=== PATIENT | female | born 1990 | race Caucasian/White ===

== ENCOUNTER 2020-05-19 15:27 | Outpatient (REF) | payer OTHER, SELFPAY | END 2020-05-19 15:28 | disposition home or self-care (01) | LOC: HO.LAB 15:27 | PROVIDERS: Visit Provider Internal Medicine | DX: Z20.828 Contact with and (suspected) exposure to other viral communicable diseases (principal) | CPT/HCPCS: U0003 ==

== ENCOUNTER 2020-07-03 10:11 | Outpatient (REF) | payer OTHER, SELFPAY ==
[2020-07-03 10:54] LABS: Basophils Percent Auto 0.4 % (0-2); Eosinophils Absolute Auto 0.1 X10*3/uL (0.0-0.4); Eosinophils Percent Auto 0.8 % (0-4); Hematocrit 40.3 % (37-47); Hemoglobin 13.5 g/dl (12.0-16.0); Imm Gran Abs Auto 0.02 X10*3/uL (0.00-0.03); Imm Gran Pct Auto 0.3 % (0.0-0.4); Lymphocytes Absolute Auto 2.6 X10*3/uL (1.2-4.9); Lymphocytes Percent Auto 32.8 % (20-40); MANUAL DIFF FLAG NO; Mean Corpuscular HGB Conc 33.5 g/dl (31.0-35.0); Mean Corpuscular Hemoglobin 29.6 pg (27.0-33.0); Mean Corpuscular Volume 88.4 fL (80-98); Mean Platelet Volume 10.5 fL (9.4-12.3); Monocytes Absolute Auto 0.4 X10*3/uL (0.1-1.2); Monocytes Percent Auto 5.5 % (2-11); Neutrophils Absolute Auto 4.7 X10*3/uL (2.0-8.3); Neutrophils Percent Auto 60.2 % (45-73); Platelet Count 255 X10*3/uL (160-400); Red Blood Count 4.56 X10*6/uL (4.20-5.50); Red Cell Distribution Width 12.4 % (11.0-16.0); White Blood Count 7.8 X10*3/uL (4.8-10.8)
[2020-07-03 11:10] LABS: Estimated Average Glucose 186 mg/dL; Hemoglobin A1c % 8.1 %
[2020-07-03 11:24] LABS: Creatinine Urine 198.71 mg/dL; Microalbum/Creatinine Ratio Ur 18.6 ug/mg cr
[2020-07-03 11:27] LABS: Alanine Aminotransferase 53 U/L (0-31); Albumin Level 4.5 g/dL (3.5-5.0); Alkaline Phosphatase 67 U/L (39-117); Anion Gap 12 (12-20); Aspartate Amino Transferase 24 U/L (5-31); Bilirubin Total 0.3 mg/dL (0.0-1.0); Blood Urea Nitrogen 13 mg/dL (9-16); Calcium 9.2 mg/dL (8.4-10.2); Carbon Dioxide 25 mmol/L (22-29); Chloride 106 mmol/L (96-108); Cholesterol 203 mg/dL; Estimated Glomerular Filt Rate > 60; Glucose Random 146 mg/dL (60-115); HDL Cholesterol 40 mg/dL; LDL Cholesterol Calculated 136 mg/dl; Potassium 4.5 mmol/l (3.3-5.1); Sodium 138 mmol/L (135-145); Total Protein 7.2 g/dL (6.5-8.0); Triglycerides 137 mg/dL
== END 2020-07-03 10:12 | disposition home or self-care (01) ==
LOC: HO.LAB 10:11
PROVIDERS: PCP Physician Assistant; Visit Provider Physician Assistant
DX: E11.9 Type 2 diabetes mellitus without complications (principal); Z79.4 Long term (current) use of insulin
CPT/HCPCS: 36415; 80053; 80061; 82043; 83036; 85025

== ENCOUNTER 2020-07-31 08:08 | Outpatient (REF) | payer OTHER, SELFPAY ==
[2020-07-31 09:05] LABS: Estimated Average Glucose 160 mg/dL; Hemoglobin A1c % 7.2 %
[2020-07-31 09:20] LABS: Creatinine Urine 187.32 mg/dL; Microalbum/Creatinine Ratio Ur 14.9 ug/mg cr
[2020-07-31 09:20] LABS: Alanine Aminotransferase 33 U/L (0-31); Albumin Level 4.7 g/dL (3.5-5.0); Alkaline Phosphatase 74 U/L (39-117); Anion Gap 13 (12-20); Aspartate Amino Transferase 16 U/L (5-31); Bilirubin Total 0.4 mg/dL (0.0-1.0); Blood Urea Nitrogen 12 mg/dL (9-16); Calcium 9.7 mg/dL (8.4-10.2); Carbon Dioxide 27 mmol/L (22-29); Chloride 104 mmol/L (96-108); Cholesterol 205 mg/dL; Estimated Glomerular Filt Rate > 60; Glucose Random 181 mg/dL (60-115); HDL Cholesterol 40 mg/dL; LDL Cholesterol Calculated 130 mg/dl; Potassium 4.9 mmol/l (3.3-5.1); Sodium 139 mmol/L (135-145); Total Protein 7.3 g/dL (6.5-8.0); Triglycerides 179 mg/dL
[2020-07-31 09:37] LABS: ~Hepatitis B Surface Antibody REACTIVE (Nonreactive)
[2020-08-01 06:36] LABS: Varicella IgG Antibody >4000.00 index
== END 2020-07-31 08:09 | disposition home or self-care (01) ==
LOC: HO.LAB 08:08
PROVIDERS: PCP Physician Assistant; Visit Provider Physician Assistant
DX: Z01.84 Encounter for antibody response examination (principal); E11.9 Type 2 diabetes mellitus without complications; Z79.4 Long term (current) use of insulin
CPT/HCPCS: 36415; 80053; 80061; 82043; 83036; 86706; 86787

== ENCOUNTER 2022-04-13 09:12 | Outpatient (REF) | payer OTHER, SELFPAY ==
[2022-04-15 22:41] LABS: HPV mRNA E6/E7 rflx Not Detected (Not Detected)
== END 2022-04-13 09:13 | disposition home or self-care (01) ==
LOC: HO.LNP 09:12
PROVIDERS: Visit Provider Advanced Practice Midwife
DX: Z01.419 Encounter for gynecological examination (general) (routine) without abnormal findings (principal); Z11.51 Encounter for screening for human papillomavirus (HPV)
CPT/HCPCS: 87624; 88142

== ENCOUNTER 2022-08-16 07:58 | Outpatient (REF) | payer OTHER, SELFPAY ==
[2022-08-16 08:50] LABS: Hematocrit 43.2 % (37.0-47.0); Hemoglobin 14.4 g/dl (12.0-16.0); Mean Corpuscular HGB Conc 33.3 g/dl (31.0-35.0); Mean Corpuscular Hemoglobin 29.4 pg (27.0-33.0); Mean Corpuscular Volume 88.2 fL (80.0-98.0); Mean Platelet Volume 10.7 fL (9.4-12.3); Platelet Count 220 X10*3/uL (160-400); Red Cell Distribution Width 12.3 % (11.0-16.0); White Blood Count 9.3 X10*3/uL (4.8-10.8)
[2022-08-16 10:07] LABS: Alanine Aminotransferase 62 U/L (0-31); Albumin Level 4.6 g/dL (3.5-5.0); Alkaline Phosphatase 70 U/L (39-117); Anion Gap 13 (12-20); Aspartate Amino Transferase 30 U/L (5-31); Bilirubin Total 0.5 mg/dL (0.0-1.0); Blood Urea Nitrogen 10 mg/dL (9-16); Calcium 9.9 mg/dL (8.4-10.2); Carbon Dioxide 25 mmol/L (22-29); Chloride 103 mmol/L (96-108); Cholesterol 219 mg/dL; Estimated Glomerular Filt Rate > 60; Glucose Fasting 222 mg/dL (60-99); HDL Cholesterol 36 mg/dL; LDL Cholesterol Calculated 118 mg/dl; Potassium 4.7 mmol/L (3.3-5.1); Sodium 136 mmol/L (135-145); Total Protein 7.3 g/dL (6.5-8.0); Triglycerides 329 mg/dL
[2022-08-16 10:25] LABS: TSH reflex Free T4 2.43 uIU/mL (0.32-4.0)
== END 2022-08-16 07:59 | disposition home or self-care (01) ==
LOC: HO.LAB 07:58
PROVIDERS: Absent Provider Hospitalist; PCP Hospitalist; Visit Provider Hospitalist
DX: Z00.00 Encounter for general adult medical examination without abnormal findings (principal); L20.9 Atopic dermatitis, unspecified; J30.9 Allergic rhinitis, unspecified; L30.9 Dermatitis, unspecified
CPT/HCPCS: 36415; 80053; 80061; 84443; 85027; 86003

== ENCOUNTER 2023-02-18 08:04 | Outpatient (REF) | payer OTHER, SELFPAY | END 2023-02-18 08:05 | disposition home or self-care (01) | LOC: HO.LAB 08:04 | PROVIDERS: PCP Hospitalist; Visit Provider Hospitalist | DX: J30.9 Allergic rhinitis, unspecified (principal); L20.9 Atopic dermatitis, unspecified; L30.9 Dermatitis, unspecified; Z91.09 Other allergy status, other than to drugs and biological substances | CPT/HCPCS: 36415; 86003 ==

== ENCOUNTER 2023-07-22 16:10 | Outpatient (AMB) | payer OTHER, SELFPAY ==
[2023-07-22 16:12] VITALS: BP 108/74; PULSE 101; RESP 13; TEMP 36.6; O2SAT 99; BMI 31.6
--- NOTE | 2023-07-22 16:12 | MHC.PC.OV ---
Vital Signs 07/22/23 16:12 Height 5 ft 1 in Weight 167 lb 4 oz BMI 31.6 BP 108/74 Blood Pressure Location Rt brachial Position Sitting Respiration 13 Pulse 101 H Pulse Source Pulse Oximeter Temp 97.9 F Temp Source Temporal Artery Scan Pulse Oximetry (%) 99 Oxygen Delivery Method Room Air Intake Visit Reasons: THIERNO, BP check, Diabetes management Warranty Clerk Required: No Accompanied by: Self / Same As Patient Allergies lisinopril Adverse Reaction (Severe, Verified 07/22/23 16:17) Cough ARTIFICIAL SWEETENERS Allergy (Intermediate, Uncoded 09/01/22 15:47) HIVES, VOMITING Tobacco use date assessed: 07/22/23 Dental Screening Dental Screen Date: 07/22/23 Did you have a dental visit in the last 12 months?: No Did you have a dental problem in the last 6 months where you did not have access to dental care?: No Was dental information given to patient?: Patient has dentist HPI HPI Comments History of Present Illness Details 32-year-old female presents for transfer of care Her former PCP is VILMA who is no longer with the practice. Her last office visit was in August 2022. Her last blood work was in July 2022 She has history of diabetes and PCOS. She notes that her SBP was elevated once, 140 and was informed by her former PCP she has hypertension. She notes she has been on Spironolactone for hypertension Her last A1c in August 2022 was 7.9% She has been taking Metformin ER 500mg daily and Trulicity 1.5 mg daily She offers no complaints and denies acute symptoms at this time [facility] Medical History Chronic allergic rhinitis Eczema Atopic dermatitis Diabetes Hx of type 2 diabetes mellitus History of PCOS Surgical History Hx of section Hx of tubal ligation Family History Father Myocardial infarction, Onset Age: 45 CVD (cardiovascular disease) Social History Housing: House Alcohol intake: current Alcohol intake frequency: holidays/special occasions only Patient Tobacco Use Status: Never used Tobacco e-Cigarette/Vaping Use: Never Used service: No Current occupational status: employed Current occupation: [employer] Sexual orientation: Straight/Heterosexual Gender identity: Female Cognitive needs: No Hearing needs: No Vision needs: No Questionnaire PHQ-9 Over the last 2 weeks, how often have you been bothered by any of the following problems? 1. Little interest or pleasure in doing things: not at all 2. Feeling down, depressed, or hopeless: not at all 3. Trouble falling or staying asleep, or sleeping too much: not at all 4. Feeling tired or having little energy: not at all 5. Poor appetite or overeating: not at all 6. Feeling bad about yourself - or that you are a failure or have let yourself or your family down: not at all 7. Trouble concentrating on things, such as reading the newspaper or watching television: not at all 8. Moving or speaking so slowly that other people could have noticed. Or the opposite - being so fidgety or restless that you have been moving around a lot more than usual: not at all 9. Thoughts that you would be better off or of hurting yourself in some way: not at all Total score: 0 Depression Screening Interpretation: Negative Depression Screening Done: Yes 87042 - PHQ-9 Billing: Yes Source: Developed by Drs. Brad Dao, Wendy Johnson, Noé Escobar and colleagues, with an educational lefty from [employer]. Thrive Questionnaire Date Thrive assessed: 07/22/23 I am a: Patient What is your living situation today?: I have a steady place to live Within the past 12 months, did the food you bought not last and you didn't have the money to get more?: Never true Within the past 12 months, did you worry whether your food would run out before you got money to buy more?: Never true Do you have trouble paying for medicines?: No Do you have trouble getting transportation to medical appointments?: No Do you have trouble paying your heating and electricity bill?: No Do you have trouble taking care of your child, family member or friend?: No Do you have trouble with day-to-day activities such as bathing, preparing meals, shopping, managing finances, etc.?: No Are you currently unemployed and looking for a job?: No Are you interested in more education?: No Please select the resources that you would like help with: None Currently or been in a relationship where the following occur: no concerns reported AUDIT C Alcohol Use Questionnaire (AUDIT-C) 1. How often do you have a drink containing alcohol?: Monthly or less 2. How many drinks containing alcohol do you have on a typical day when you are drinking?: 3 or 4 3. How often do you have six or more drinks on one occasion?: Never Total Score: 2 BULL-7 AMB Questionnaire BULL-7 Date BULL - 7 assessed: 07/22/23 Feeling nervous, anxious, or on edge: 0 = Not at all Not being able to stop or control worryin = Not at all Worrying too much about different things: 0 = Not at all Trouble relaxin = Not at all Being so restless that it is hard to sit still: 0 = Not at all Becoming easily annoyed or irritable: 0 = Not at all Feeling afraid as if something awful might happen: 0 = Not at all Total BULL-7 score (0-4 normal; 5-9 mild; 10-14 moderate; 15-21 severe): 0 Source: Developed by Drs. Brad Dao, Wendy Johnson, Noé Escobar and colleagues, with an educational lefty from [employer]. BULL-7 Assessment Billing BULL-7 Assessment Tool: BULL-7 Assessment 09815 Review of Systems Const Details: Const Denies chills, Denies fatigue, Denies fever(s), Denies headache(s) and Denies weakness ENT Denies dizziness and Denies headache(s) Card Denies chest pain, Denies lightheadedness, Denies dyspnea and Denies other (Palpitations) Resp Denies cough, Denies dyspnea, Denies wheezing and Denies other ( shortness of breath) GI Denies abdominal pain, Denies melena, Denies hematochezia, Denies change in bowel habits, Denies dyspepsia and Denies nausea Denies hematuria and Denies dysuria Musc Denies abnormal gait, Denies myalgias, Denies arthralgias, Denies numbness and Denies tingling Skin/Breast Denies rash, Denies unusual bruising and Denies wounds Neuro Denies abnormal gait, Denies dizziness, Denies headache(s), Denies memory loss, Denies numbness, Denies Sensory deficit (Neuro), Denies tingling and Denies weakness Psych Denies anxiety, Denies depression, Denies memory loss Endo Denies cold intolerance, Denies fatigue, Denies heat intolerance, Denies polydipsia and Denies polyuria Aller/Immun Denies wheezing Physical exam (Primary Care) Vital Signs: Last Vital Signs Temp 97.9 F 07/22/23 16:12 Pulse 101 H 07/22/23 16:12 Resp 13 07/22/23 16:12 BP 108/74 07/22/23 16:12 Pulse Ox 99 07/22/23 16:12 Oxygen Delivery Method Room Air 07/22/23 16:12 BMI result Body Mass Index 31.6 Tobacco/Smoking Status: Tobacco use Status Tobacco use date assessed 07/22/23 07/22/23 16:21 Patient Tobacco Use Status Never used Tobacco 07/22/23 16:21 e-Cigarette/Vaping Use Never Used 07/22/23 16:21 PHQ-9: PHQ-9 Score PHQ-9: Total score 0 07/22/23 16:32 Depression Screening Interpretation: Negative Thrive Assessment: Date of Thrive Assessment Date Thrive assessed 07/22/23 07/22/23 16:21 Currently or been in a relationship where the following occur: no concerns reported Const Other: General: no acute distress and well developed Nutritional Appearance: well nourished Orientation/consciousness: patient oriented x3 HENMT Head: Yes normocephalic and Yes atraumatic Eyes General: appearance normal, both eyes and all related structures Pupils: Equal, round and reactive pupils present EOM: EOMs intact bilaterally Resp Effort & Inspection: normal respiratory effort Auscultation: clear to auscultation bilaterally Cardio Rate: regular rate Rhythm: regular rhythm Heart sounds: S1 normal heart sound present, S2 normal heart sound present, no gallops, no murmurs and no rubs GI Palpation (GI): No Abdominal aortic bruit present, Soft to palpation, nontender, No hepatosplenomegaly present and No Rebound tenderness present Auscultation: normal bowel sounds General: Yes no CVA tenderness Back/Spine/Pelvis Back: no CVA tenderness Cervical Spine: cervical ROM normal and No Cervical spine tenderness Thoracic/Lumbar Spine: thoraco-lumbar ROM normal, No pain with thoraco-lumbar ROM, No thoracic spinal tenderness and No lumbar spinal tenderness Extrem General: Yes normal to inspection, No edema and No calf tenderness Skin General: warm and dry. Normal skin color. Normal skin turgor Lesions: no lesions Rashes: no rashes Trauma: no lacerations or abrasions Wounds: no wounds Nails: normal Neuro General: patient oriented x3, gait normal and no focal neuro deficit Cranial nerves: Yes Equal, round and reactive pupils present Cognition (Neuro): normal cognition Gait exam (Neuro): Normal gait present Sensory Exam: No Sensory deficit (Neuro) Psych Appearance: grossly normal Affect: normal affect Attitude: cooperative Thought process: Normal thought process present Results AMB Hemoglobin A1c AMB Hemoglobin A1c 9.3 % Last Edit by Melly Dan MA on 07/22/23 16:48 Results Reviewed Results Reviewed: Laboratory Last Values Hgb A1c (Clinic) 9.3 % (4.0-6.0) H 07/22/23 16:47 Assessment and Plan Assessment & Plan (1) Diabetes: Code(s): E11.9 - Type 2 diabetes mellitus without complications Plan: A1c today is 9.3%, above goal of less than 7.0% Will increase metformin and Trulicity. Take as prescribed ADA diet and routine exercise encouraged Point of care testing supplies ordered. Advised to monitor blood glucose 3 times daily, record readings, and bring to next appointment Follow-up in one month for an extended physical exam and labs review or return sooner with symptoms or concerns Verbalized understanding and agreed with treatment plan (2) Laboratory tests ordered as part of a complete physical exam (CPE): Code(s): Z00.00 - Encounter for general adult medical examination without abnormal findings Plan: Fasting labs ordered as part of a complete physical exam. Advised to fast for at least 10 hours before getting labs drawn. May drink water Verbalized understanding and agreed with treatment plan. Orders: Orders AMB Hemoglobin A1c Today E11.9 - Type 2 diabetes mellitus without complications Complete Blood Count Auto Diff Today Z00.00 - Encounter for general adult medical examination without abnormal findings Comprehensive [place]. Panel Fast Today Z00.00 - Encounter for general adult medical examination without abnormal findings TSH reflex Free T4 Today Z00.00 - Encounter for general adult medical examination without abnormal findings Lipid Panel Today Z00.00 - Encounter for general adult medical examination without abnormal findings UA CC w/rflx Micro + Cult Today Z00.00 - Encounter for general adult medical examination without abnormal findings Medications: New lancets (FreeStyle Lancets) POC TID 100 ea 4RF blood-glucose meter (FreeStyle Lite Meter kit) As directed 1 ea 0RF dulaglutide (Trulicity) 3 mg (0.5 mL) subcut QWEEK 2.5 mL 3RF 30 days metformin ER 1,000 mg (2 x 500 mg) PO DAILY 60 tabs 3RF 30 days blood sugar diagnostic (FreeStyle Lite Strips) POC TID 100 ea 4RF Discontinued dulaglutide (Trulicity) Discontinued Reason: Doctor's Order 1.5 mg (0.5 mL) subcut QWEEK 6.5 mL 0RF 3 months E11.9 - Type 2 diabetes mellitus without complications Coding Level of Care Code Est Pt Level 4 (28511) Diagnoses Diabetes E11.9 Laboratory tests ordered as part of a complete physical exam (CPE) Z00.00 Additional Codes BULL-7 Assessment Billing - BULL-7 Assessment Tool: BULL-7 Assessment 71002 ([id number])
== END 2023-07-22 16:50 | disposition home or self-care (01) ==
PROVIDERS: PCP Hospitalist; Visit Provider Nurse Practitioner Family
DX: E11.9 Type 2 diabetes mellitus without complications (principal); Z00.00 Encounter for general adult medical examination without abnormal findings
CPT/HCPCS: 83036; 99214

== ENCOUNTER 2023-09-04 18:39 | Emergency (ER) | payer OTHER, SELFPAY ==
[2023-09-04 19:06] VITALS: BP 147/78; PULSE 105; RESP 14; TEMP 37.3; O2SAT 97; BMI 30.6
--- NOTE | 2023-09-04 19:11 | ECG_ITS ---
Test Reason : TACHYCARDIA Blood Pressure : / mmHG Vent. Rate : 099 BPM Atrial Rate : 099 BPM P-R Int : 140 ms QRS Dur : 070 ms QT Int : 352 ms P-R-T Axes : 025 017 014 degrees QTc Int : 451 ms Normal sinus rhythm Normal ECG When compared with ECG of 06-JUN-2009 23:17, ST now depressed in Inferior leads T wave amplitude has decreased in Anterior leads Referred By: Generic ED Physician Electronically Signed By:YAJAIRA IRAHETA MD
[2023-09-04 19:37] LABS: Basophils Percent Auto 0.4 % (0-2); Eosinophils Absolute Auto 0.1 X10*3/uL (0.0-0.4); Eosinophils Percent Auto 0.9 % (0-4); Hematocrit 38.4 % (37.0-47.0); Hemoglobin 13.2 g/dl (12.0-16.0); Imm Gran Abs Auto 0.03 X10*3/uL (0.00-0.03); Imm Gran Pct Auto 0.4 % (0.0-0.4); Lymphocytes Absolute Auto 2.8 X10*3/uL (1.2-4.9); Lymphocytes Percent Auto 32.7 % (20-40); MANUAL DIFF FLAG NO; Mean Corpuscular HGB Conc 34.4 g/dl (31.0-35.0); Mean Corpuscular Hemoglobin 29.8 pg (27.0-33.0); Mean Corpuscular Volume 86.7 fL (80.0-98.0); Mean Platelet Volume 10.2 fL (9.4-12.3); Monocytes Absolute Auto 0.5 X10*3/uL (0.1-1.2); Monocytes Percent Auto 5.3 % (2-11); Neutrophils Absolute Auto 5.1 x10*3/uL (2.0-8.3); Neutrophils Percent Auto 60.3 % (45-73); Platelet Count 237 X10*3/uL (160-400); Red Blood Count 4.43 X10*6/uL (4.20-5.50); White Blood Count 8.5 X10*3/uL (4.8-10.8)
[2023-09-04 19:45] LABS: D Dimer High Sensitivity < 150 NG/ML
[2023-09-04 20:05] LABS: Alanine Aminotransferase 29 U/L (0-31); Albumin Level 4.2 g/dL (3.5-5.0); Alkaline Phosphatase 73 U/L (39-117); Anion Gap 13 (12-20); Aspartate Amino Transferase 14 U/L (5-31); Bilirubin Total 0.2 mg/dL (0.0-1.0); Blood Urea Nitrogen 12 mg/dL (9-16); Calcium 9.3 mg/dL (8.4-10.2); Carbon Dioxide 25 mmol/L (22-29); Chloride 105 mmol/L (96-108); Creatinine Clr Calc Pharmacy 100.9; Estimated Glomerular Filt Rate > 60; Glucose Random 234 mg/dL (60-115); Potassium 3.8 mmol/L (3.3-5.1); Sodium 139 mmol/L (135-145); Total Protein 6.9 g/dL (6.5-8.0)
[2023-09-04 20:15] VITALS: BP 127/78; PULSE 80; RESP 18; O2SAT 97
[2023-09-04 20:16] LABS: Troponin-I High Sensitivity < 2.7 ng/L (<3.5-17.0)
--- NOTE | 2023-09-04 20:24 | PC.NURSE ---
Assumed care of pt. PT alert and oriented in no acute distress. PT Reports left calf pain. Calf is pink warm and dry, no redness or pain upon palpation. VSS. Med list completed. Plan of care ongoing
--- NOTE | 2023-09-04 21:26 | ED.GENADULT ---
HPI - General Adult General Chief complaint: General Medical Stated complaint: blood clot? Left calf pain/ L rib pain Time Seen by Provider: 09/04/23 20:43 Source: patient Mode of arrival: ambulatory History of Present Illness HPI narrative: 32-year-old female with history of diabetes and states that for the past week she has had bilateral lower extremity discomfort without associated fever, chills, traumatic injury, but states that she noticed it was worse on the left calf than on the right, denies any recent travel, is a current smoker and then states that she has had additional symptoms that she describes as chest heaviness and chest wall discomfort as well as palpitations. She denies shortness of breath. Related Data Home Medications Medication Instructions Recorded Confirmed metformin 500 mg tablet,extended 500 mg PO DAILY 07/22/23 release 24 hr Baby Aspirin 81 mg DAILY 09/04/23 09/04/23 Previous Rx's Medication Instructions Recorded blood pressure monitor #1 ea 05/26/22 spironolactone 25 mg tablet 25 mg PO DAILY 3 months #90 tabs 02/17/23 blood sugar diagnostic (FreeStyle #100 ea 07/22/23 Lite Strips) blood-glucose meter (FreeStyle #1 ea 07/22/23 Lite Meter kit) dulaglutide 3 mg/0.5 mL 3 mg (0.5 mL) subcut QWEEK 30 days 07/22/23 subcutaneous pen injector #2.5 mL (Trulicity) lancets 28 gauge (FreeStyle #100 ea 07/22/23 Lancets) metformin 500 mg tablet,extended 1,000 mg (2 x 500 mg) PO DAILY 30 07/22/23 release 24 hr days #60 tabs flash glucose scanning reader #1 ea 08/02/23 (FreeStyle Radames 2 [place]) flash glucose sensor (FreeStyle #2 ea 08/31/23 Radames 2 Sensor kit) Allergies Allergy/AdvReac Type Severity Reaction Status Date / Time lisinopril AdvReac Severe Cough Verified 09/04/23 19:06 ARTIFICIAL SWEETENERS Allergy Intermediate HIVES, Uncoded 09/04/23 19:06 VOMITING Review of Systems Review of Systems: Pertinent positives and negatives as stated in HPI REPLACED BY [facility] Past Medical History Source: nursing notes reviewed Medical History Chronic allergic rhinitis Eczema Atopic dermatitis Diabetes Hx of type 2 diabetes mellitus History of PCOS Surgical History Hx of section Hx of tubal ligation Family History Family History Father Myocardial infarction, Onset Age: 45 CVD (cardiovascular disease) Social History Social History Housing: House Alcohol intake: current Alcohol intake frequency: holidays/special occasions only Patient Tobacco Use Status: Never used Tobacco Smoked in Last 30 Days: Yes e-Cigarette/Vaping Use: Never Used Use of substances other than those prescribed or required for medical reasons: No Advance Directives: No Advance Directives Information Provided: No Patient : No service: No Current occupational status: employed 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 GENERAL: Well developed, well nourished, in no acute distress. HEAD: Normocephalic/atraumatic EYES: PERRLA, EOMI EARS: Ext canals without abnormality, TMs non-bulging and non-erythematous NOSE: Nares patent bilateral OROPHARYNX: no oral lesions noted, posterior pharynx clear and non-erythematous without noted tonsillar enlargement/erythema/exudates NECK: Supple, no adenopathy LUNGS: Normal breath sounds. No adventitious sounds or accessory muscle use. SpO2<97> CARDIOVASCULAR: Regular rate and rhythm without noted murmurs, no JVD or lower extremity edema. ABDOMEN: Soft, non-tender, non-distended with bowel sounds. MUSCULOSKELETAL: No tenderness, deformities, or effusions noted on gross inspection. EXTREMITIES: No cyanosis, clubbing or edema. BILATERAL LOWER EXTREMITIES: There is no obvious deformity common no erythema/induration, no varicosities, no palpable cords and lower extremities appear to be symmetrical SKIN: Inspection of the skin reveals no rashes NEUROLOGIC: Alert and oriented x 4. Strength and sensation to light touch were grossly intact x 4. Medical Decision Making Medical Decision Making [facility] Narrative: 32-year-old female with history and clinical presentation, DDX: Viral illness, thrombophlebitis, musculoskeletal, possible DVT/PE though felt to be less likely. I reviewed all investigations and hematologic indices are grossly within normal limits without derangements. D-dimer is undetectable and chemistry indices do not demonstrate an DAVID or electrolyte derangements, there is a mild hyperglycemia without clinical or historical evidence to suggest DKA or HHS. Liver enzymes are within normal limits and high sensitivity troponin is undetectable. Review of EKG without significant findings. My interpretation is that patient may have developing viral infection, she is not hypoxic nor is she tachypneic. All results and findings discussed with her at bedside and she is otherwise discharged home in stable condition. Differential Diagnosis Differential Diagnoses: The differential diagnosis associated with the presentation includes Please see the discussion above Admission/Observation Consideration of admission/observation: Escalation of care including admission/observation considered Please see the discussion above Lab Data [facility] Lab Attestation statement: I reviewed the patient's lab results. Please see the discussion above 09/04/23 19:32 09/04/23 19:32 Labs: Lab Results 09/04/23 Range/Units 19:32 WBC 8.5 (4.8-10.8) X10*3/uL RBC 4.43 (4.20-5.50) X10*6/uL Hgb 13.2 (12.0-16.0) g/dl Hct 38.4 (37.0-47.0) % MCV 86.7 (80.0-98.0) fL MCH 29.8 (27.0-33.0) pg MCHC 34.4 (31.0-35.0) g/dl RDW 12.0 (11.0-16.0) % Plt Count 237 (160-400) X10*3/uL MPV 10.2 (9.4-12.3) fL Immature Gran % (Auto) 0.4 (0.0-0.4) % Neut % (Auto) 60.3 (45-73) % Lymph % (Auto) 32.7 (20-40) % [place] % (Auto) 5.3 (2-11) % Eos % (Auto) 0.9 (0-4) % Baso % (Auto) 0.4 (0-2) % Lymph # (Auto) 2.8 (1.2-4.9) X10*3/uL [place] # (Auto) 0.5 (0.1-1.2) X10*3/uL Eos # (Auto) 0.1 (0.0-0.4) X10*3/uL Baso # (Auto) 0.0 (0.0-0.2) X10*3/uL Abs Immat Gran (auto) 0.03 (0.00-0.03) X10*3/uL Absolute Neuts (auto) 5.1 (2.0-8.3) x10*3/uL Absolute Nucleated RBC 0.000 (0.0-0.012) X10*3/uL Nucleated RBC % (auto) 0.0 (0.0-0.2) /100WBC D-Dimer High Sensitivty < 150 NG/ML Sodium 139 (135-145) mmol/L Potassium 3.8 (3.3-5.1) mmol/L Chloride 105 (96-108) mmol/L Carbon Dioxide 25 (22-29) mmol/L Anion Gap 13 (12-20) BUN 12 (9-16) mg/dL Creatinine 0.74 (0.5-1.4) mg/dL Estim Creat Clear Calc 100.9 Estimated GFR > 60 Random Glucose 234 H (60-115) mg/dL Calcium 9.3 D (8.4-10.2) mg/dL Total Bilirubin 0.2 (0.0-1.0) mg/dL AST 14 (5-31) U/L ALT 29 (0-31) U/L Alkaline Phosphatase 73 (39-117) U/L Troponin I High Sens < 2.7 (<3.5-17.0) ng/L Total Protein 6.9 (6.5-8.0) g/dL Albumin 4.2 (3.5-5.0) g/dL Independent Interpretation I performed an independent interpretation of an: EKG Interpretation: Normal sinus rhythm, HR-99, no STEMI, CO/QRS/QTC is within normal limits. ST depression described it in inferior leads is inaccurate due to noted artifact. External Record Review External record reviewed: Outpatient record, Prior outpatient labs and Prior outpatient radiology Chronic Conditions Patient?s care impacted by: Diabetes Critical Care Time Critical Care Time Critical Care Time: Yes Total Critical Care Time: 30 Attestation: I personally attest to this time spent taking care of the patient. Discharge Plan Discharge Clinical Impression: Musculoskeletal pain Patient Disposition: Home, Self-Care Instructions: Musculoskeletal Pain (ED) Additional Instructions: 1. Resume all home medications as prescribed. 2. Please follow-up with your primary care doctor in the next 1-2 days. Do not hesitate to return to the emergency room should you experience any worsening of symptoms or new concerns. Prescriptions: No Action spironolactone 25 mg tablet 25 mg PO DAILY 90 Days Qty: 90 2RF (DME) FreeStyle Radames 2 [place] Misc See Rx Instructions .Route Qty: 1 0RF Rx Instructions: As directed (DME) FreeStyle Radames 2 Sensor Kit See Rx Instructions .Route Qty: 2 1RF Rx Instructions: As directed Baby Aspirin 81 mg DAILY Trulicity 3 mg/0.5 mL pen injector 3 mg subcut QWEEK 30 Days Qty: 2.5 3RF metformin 500 mg tablet extended release 24 hr 1,000 mg PO DAILY 30 Days Qty: 60 3RF (DME) lancets [FreeStyle Lancets] 28 gauge misc See Rx Instructions .MEDSUPPLY Qty: 100 4RF Rx Instructions: POC TID (DME) blood-glucose meter [FreeStyle Lite Meter] Kit See Rx Instructions .MEDSUPPLY Qty: 1 0RF Rx Instructions: As directed (DME) FreeStyle Lite Strips Strip See Rx Instructions .MEDSUPPLY Qty: 100 4RF Rx Instructions: POC TID metformin 500 mg tablet extended release 24 hr 500 mg PO DAILY (DME) blood pressure monitor Kit See Rx Instructions .Route Qty: 1 0RF Rx Instructions: As directed Referrals: Denisse Berman CNP [Primary Care Provider] -
== END 2023-09-04 21:47 | disposition home or self-care (01) ==
PROVIDERS: Emergency Provider Student in an Organized Health Care Education/Training Program; PCP Nurse Practitioner Family
DX: R60.0 Localized edema (principal); M79.605 Pain in left leg; M79.604 Pain in right leg; R00.0 Tachycardia, unspecified; M79.10 Myalgia, unspecified site; Z79.899 Other long term (current) drug therapy
CPT/HCPCS: 36415; 80053; 84484; 85025; 85379; 93005; 99283; 99284

== ENCOUNTER → 2023-09-04 19:11 | Outpatient (BNV) | payer OTHER, SELFPAY | PROVIDERS: Emergency Provider Student in an Organized Health Care Education/Training Program; PCP Nurse Practitioner Family; Visit Provider Internal Medicine Cardiovascular Disease | DX: R00.0 Tachycardia, unspecified (principal) | CPT/HCPCS: 93010 ==

== ENCOUNTER 2023-09-08 07:55 | Outpatient (REF) | payer OTHER, SELFPAY ==
--- NOTE | ~2023-09-08 | XR_ITS ---
EXAMINATION: XR CHEST 2 VIEWS CLINICAL INFORMATION: Acute dyspnea. COMPARISON: None. TECHNIQUE: Frontal and lateral views of the chest were obtained. FINDINGS: The heart, great vessels, pulmonary vasculature and mediastinum are normal. The lungs show no focal infiltrate, effusion or pneumothorax. There is no acute osseous abnormality. XR/XR chest 2V IMPRESSION: No active cardiopulmonary disease.
[2023-09-08 08:09] LABS: MANUAL DIFF FLAG NO
[2023-09-08 08:21] LABS: Basophils Percent Auto 0.4 % (0-2); Eosinophils Absolute Auto 0.1 X10*3/uL (0.0-0.4); Eosinophils Percent Auto 1.2 % (0-4); Hematocrit 40.1 % (37.0-47.0); Hemoglobin 13.7 g/dl (12.0-16.0); Imm Gran Abs Auto 0.04 X10*3/uL (0.00-0.03); Imm Gran Pct Auto 0.5 % (0.0-0.4); Lymphocytes Absolute Auto 2.5 X10*3/uL (1.2-4.9); Lymphocytes Percent Auto 29.7 % (20-40); Mean Corpuscular HGB Conc 34.2 g/dl (31.0-35.0); Mean Corpuscular Hemoglobin 29.8 pg (27.0-33.0); Mean Corpuscular Volume 87.2 fL (80.0-98.0); Mean Platelet Volume 10.1 fL (9.4-12.3); Monocytes Absolute Auto 0.5 X10*3/uL (0.1-1.2); Neutrophils Absolute Auto 5.2 x10*3/uL (2.0-8.3); Neutrophils Percent Auto 62.2 % (45-73); Platelet Count 211 X10*3/uL (160-400); Red Cell Distribution Width 11.9 % (11.0-16.0); White Blood Count 8.3 X10*3/uL (4.8-10.8)
[2023-09-08 08:56] LABS: Alanine Aminotransferase 29 U/L (0-31); Albumin Level 4.3 g/dL (3.5-5.0); Alkaline Phosphatase 66 U/L (39-117); Anion Gap 12 (12-20); Aspartate Amino Transferase 17 U/L (5-31); Bilirubin Total 0.3 mg/dL (0.0-1.0); Blood Urea Nitrogen 8 mg/dL (9-16); Calcium 9.1 mg/dL (8.4-10.2); Carbon Dioxide 25 mmol/L (22-29); Chloride 104 mmol/L (96-108); Cholesterol 203 mg/dL (<200); Estimated Glomerular Filt Rate > 60; Glucose Fasting 198 mg/dL (60-99); HDL Cholesterol 39 mg/dL (>40); LDL Cholesterol Calculated 123 mg/dL (<100); Potassium 4.1 mmol/L (3.3-5.1); Sodium 137 mmol/L (135-145); Triglycerides 208 mg/dL (<150)
[2023-09-08 09:04] LABS: Appearance Urine Clear; Color Urine Yellow; Glucose Urine UA 250 mg/dL (Negative); Leukocyte Esterase Urine Negative (Negative); Nitrite Urine Negative (Negative); PH 7.5 (5.0-9.0); Specific Gravity - Urine 1.015 (1.005-1.025); Urine Blood Negative (Negative); Urine Ketones Trace mg/dL (Negative); Urine Protein Negative (Neg-Trace)
[2023-09-08 09:14] LABS: TSH reflex Free T4 1.83 uIU/mL (0.32-4.0)
== END 2023-09-08 07:56 | disposition home or self-care (01) ==
LOC: HO.LAB 07:55
PROVIDERS: PCP Nurse Practitioner Family; Visit Provider Nurse Practitioner Family
DX: Z00.00 Encounter for general adult medical examination without abnormal findings (principal); E11.9 Type 2 diabetes mellitus without complications; R06.00 Dyspnea, unspecified
CPT/HCPCS: 36415; 71046; 80053; 80061; 81003; 84443; 85025

== ENCOUNTER → 2023-09-09 08:47 | Outpatient (REF) | payer OTHER, SELFPAY ==
--- NOTE | 2023-09-09 08:51 | CA_ITS ---
Transthoracic Echocardiogram Patient (Last, First, Middle): Katherine Merlos, Gender: Female Date of : 1990 Age: 32 Procedure Date: 09/09/2023 Procedure Type: Transthoracic Echocardiogram Location: OP Height: 154.94 cm Weight: 72.58 kg BSA: 1.72 m2 Heart Rate: 98 bpm BP: 108 / 80 mmHg Joist Setter: SB Referring MD: Levi Shaw MD Roving Weight Gauger: Julian King MD Symptoms: R06.00 - Dyspnea, unspecified Study Quality: Adequate ECG Rhythm: Sinus Conclusions: - Essentially normal study Findings Left Ventricle Normal left ventricular size, thickness, and systolic function. The visually estimated ejection fraction is between 60-65%. Spectral Doppler is indicative of a normal filling pattern. Peak GLS is -19.2%, within normal limits. Right Ventricle Normal right ventricular cavity size and systolic function. Atria Both atria are normal in size. There is no evidence of interatrial shunt. Aortic Valve Normal aortic valve structure and function. There is no aortic valve stenosis. There is no aortic valve regurgitation. Mitral Valve Normal mitral valve structure and function. There is trace mitral valve regurgitation. There is no mitral valve stenosis. Pulmonic Valve The pulmonic valve is likely normal. Tricuspid Valve Normal tricuspid valve structure. There is trace tricuspid valve regurgitation. The right ventricular systolic pressure is normal. The right ventricular systolic pressure is 26 mmHg. Normal right atrial pressure. There is no evidence of pulmonary hypertension. Great Vessels All visible segments of the aorta are normal in size. The pulmonary artery was not well visualized. Venous The inferior vena cava is normal in size and collapses greater than 50% with inspiration. Pericardium/Pleural There is no evidence of pericardial effusion. Prior Study Comparison No prior study available for comparison. Measurements 2D Linear Measurements IVSd: 0.94 0.6-0.9/0.6-1.0 cm LVIDd: 4.08 3.9-5.3/4.2-5.9 cm LVIDd Index: 2.37 2.4-3.2/2.2-3.1 cm/m2 LVIDs: 2.85 2.0-3.6 cm LVPWd: 0.61 0.7-1.1 cm LA Diam: 4.10 2.7-3.8/3.0-4.0 cm LAIDs Index: 2.38 1.5-2.3 cm/m2 LV Mass: 115.25 67-162/88-224 g LV Mass Index: 67.01 43-95/49-115 g/m2 LVOT Diam: 2.00 3.0+(-)1.3 cm 2D Systolic Function EF 4C: 57.30 >55% EF 2C: 64.70 >55% EF BiP: 60.80 >55% Mitral Valve MV Pk E: 0.85 MV PK A: 0.65 MV Decel Time: 175.00 E/A: 1.30 E'Lateral: 12.50 E'Medial: 8.16 E/E' Med: 10.40 E/E' Lat: 6.80 PHT: 51.00 MVA PHT: 4.31 Decel [place]: 4.84 Aortic Valve AoV Pk Oumar: 1.51 AoV Pk Grad: 9.00 JOSS: 2.68 LVOT LVOT Pk Oumar: 1.29 LVOT Mn Oumar: 0.94 LVOT VTI: 0.25 LVOT Pk Grad: 7.00 LVOT Mn Grad: 4.00 LVOT Diam: 2.00 LVOT Area: 3.14 Diastolic Function MV Pk E: 0.85 MV Pk A: 0.65 E/A: 1.30 E'Medial: 8.16 E/E' Med: 10.40 E' Laterial: 12.50 E/E' Lat: 6.80 Right Ventricle TAPSE (mm): 24.80 TVS' Oumar: 13.40 Tricuspid Valve TR Pk Oumar: 2.38 TR Pk Grad: 23.00 RA Press: 3.00 RVSP: 26.00 Great Vessels Aorta Sinus of Valsalva: 2.70 2.0-3.5 cm Ao Asc: 2.80 2.1-3.4 cm Pulmonary Veins Pulm Vein S/D 1.40 Pulmonary Valve PV Pk Oumar: 1.02 Peak PV Grad: 4.00 Updated in Other Vendor System with Status of Final Julian King MD electronically signed on 09/10/2023 11:14:19 AM with status of Final
== END ==
LOC: HO.CARD 08:47
PROVIDERS: PCP Nurse Practitioner Family; Visit Provider Internal Medicine Pulmonary Disease
DX: R06.00 Dyspnea, unspecified (principal)
CPT/HCPCS: 93306; 93356

== ENCOUNTER → 2023-09-09 08:51 | Outpatient (BNV) | payer OTHER, SELFPAY | PROVIDERS: PCP Nurse Practitioner Family; Visit Provider Internal Medicine Cardiovascular Disease | DX: R06.02 Shortness of breath (principal) | CPT/HCPCS: 93306 ==

== ENCOUNTER 2023-09-09 16:32 | Outpatient (AMB) | payer OTHER, SELFPAY ==
[2023-09-09 16:35] VITALS: BP 110/70; PULSE 99; RESP 13; TEMP 36.4; O2SAT 99; BMI 31.1
--- NOTE | 2023-09-09 16:35 | A.OFFPC_ITS ---
Vital Signs 09/09/23 16:35 Height 5 ft 1 in Weight 164 lb 8 oz BMI 31.1 BP 110/70 Blood Pressure Location Rt brachial Position Sitting Respiration 13 Pulse 99 Pulse Source Pulse Oximeter Temp 97.6 F Temp Source Temporal Artery Scan Pulse Oximetry (%) 99 Oxygen Delivery Method Room Air Intake Visit Reasons: 1 mos CPE, labs review Playground Equipment Erector Required: No Accompanied by: Self / Same As Patient Allergies lisinopril Adverse Reaction (Severe, Verified 09/09/23 17:16) Cough ARTIFICIAL SWEETENERS Allergy (Intermediate, Uncoded 09/09/23 17:16) HIVES, VOMITING Medication List - Last Reconciled 09/09/23 by Denisse Berman CNP [Baby Aspirin 81 mg DAILY] blood pressure monitor As directed blood sugar diagnostic (FreeStyle Lite Strips) POC TID blood-glucose meter (FreeStyle Lite Meter kit) As directed dulaglutide (Trulicity) 3 mg (0.5 mL) subcut QWEEK 30 days flash glucose scanning reader (FreeStyle Radames 2 Vanduser) As directed flash glucose sensor (FreeStyle Radames 2 Sensor kit) As directed lancets (FreeStyle Lancets) POC TID metformin ER 1,000 mg (2 x 500 mg) PO DAILY 30 days spironolactone 25 mg PO DAILY 3 months Tobacco use date assessed: 07/22/23 Dental Screening Dental Screen Date: 09/09/23 Did you have a dental visit in the last 12 months?: No Did you have a dental problem in the last 6 months where you did not have access to dental care?: No Was dental information given to patient?: Patient has dentist HPI HPI Comments History of Present Illness Details 32 y/o female presents for a CPE and lab s review She admits to taking her medications as prescribed without adverse reactions She admits to healthy lifestyle including diet. She has not been exercising in the past 2 weeks She reports SOB with mild exertion for the past week and half. She reports persistent bilat calf pain which started before the SOB. She was recently evaluated at [facility] and had negative work-up cardiac and PE work-up. She notes had a negative COVID test. She is following up with Dr. Shaw who ordered an echo She brought a blood glucose log within the past 2 wks; her FBG average over 200 and RBG average around 150 Last pap smear test was in 2020: normal. She has a pap smear test schedule in March, Last retinal exam was over a year ago: normal. She has an eye exam scheduled in October [address] Huang She states that she is up-to-date on the flu vaccine She notes that she is sexually active, in a monogamous relationship, and has no concerns for STD Nonsmoker, drinks alcohol occasionally, no recreational drug use PFSH Medical History Chronic allergic rhinitis Eczema Atopic dermatitis Diabetes Hx of type 2 diabetes mellitus History of PCOS Surgical History Hx of section Hx of tubal ligation Family History (Updated 09/09/23 @ 16:44 by Melly Dan MA) Father Myocardial infarction, Onset Age: 45 CVD (cardiovascular disease) Social History Housing: House Alcohol intake: current Alcohol intake frequency: holidays/special occasions only Patient Tobacco Use Status: Former Tobacco user e-Cigarette/Vaping Use: Never Used service: No Current occupational status: employed 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 1. Little interest or pleasure in doing things: not at all 2. Feeling down, depressed, or hopeless: not at all 3. Trouble falling or staying asleep, or sleeping too much: not at all 4. Feeling tired or having little energy: not at all 5. Poor appetite or overeating: not at all 6. Feeling bad about yourself - or that you are a failure or have let yourself or your family down: not at all 7. Trouble concentrating on things, such as reading the newspaper or watching television: not at all 8. Moving or speaking so slowly that other people could have noticed. Or the opposite - being so fidgety or restless that you have been moving around a lot more than usual: not at all 9. Thoughts that you would be better off or of hurting yourself in some way: not at all Total score: 0 Depression Screening Interpretation: Negative Depression Screening Done: Yes Source: Developed by Drs. Brad Dao, Noé Lazo and colleagues, with an educational lefty from [employer]. Thrive Questionnaire Date Thrive assessed: 07/22/23 AUDIT C Alcohol Use Questionnaire (AUDIT-C) 1. How often do you have a drink containing alcohol?: Monthly or less 2. How many drinks containing alcohol do you have on a typical day when you are drinking?: 3 or 4 3. How often do you have six or more drinks on one occasion?: Never Total Score: 2 BULL-7 AMB Questionnaire BULL-7 Date BULL - 7 assessed: 09/09/23 Feeling nervous, anxious, or on edge: 0 = Not at all Not being able to stop or control worryin = Not at all Worrying too much about different things: 0 = Not at all Trouble relaxin = Not at all Being so restless that it is hard to sit still: 0 = Not at all Becoming easily annoyed or irritable: 0 = Not at all Feeling afraid as if something awful might happen: 0 = Not at all Total BULL-7 score (0-4 normal; 5-9 mild; 10-14 moderate; 15-21 severe): 0 Source: Developed by Drs. Brad Dao, Noé Lazo and colleagues, with an educational lefty from [employer]. BULL-7 Assessment Billing BULL-7 Assessment Tool: BULL-7 Assessment [id number] Review of Systems Const Details: Denies chills, Denies fatigue, Denies fever(s), Denies headache(s) and Denies weakness HEENT Denies change in vision, Denies dizziness, Denies headache(s), Denies hearing loss, Denies nasal congestion, Denies sinus pain, Denies sinus pressure and Denies sore throat Card Denies chest pain, Denies lightheadedness, Denies dyspnea and Denies other (palpitations) Resp Denies cough, Denies dyspnea and Denies wheezing GI Denies abdominal pain, Denies melena, Denies hematochezia, Denies change in bowel habits, Denies dyspepsia and Denies nausea Denies hematuria and Denies dysuria Musc Denies abnormal gait, Denies myalgias, Denies arthralgias, Denies numbness and Denies tingling Skin/Breast Denies rash, Denies unusual bruising and Denies wounds Neuro Denies abnormal gait, Denies dizziness, Denies headache(s), Denies memory loss, Denies numbness, Denies Sensory deficit (Neuro), Denies tingling and Denies weakness Psych Denies anxiety, Denies depression and Denies memory loss Endo Denies cold intolerance, Denies fatigue, Denies heat intolerance, Denies polydipsia and Denies polyuria Jonh/Lymph Denies easy bleeding and Denies easy bruising Aller/Immun Denies wheezing Physical exam (Primary Care) Vital Signs: Last Vital Signs Temp 97.6 F 09/09/23 16:35 Pulse 99 09/09/23 16:35 Resp 13 09/09/23 16:35 BP 110/70 09/09/23 16:35 Pulse Ox 99 09/09/23 16:35 Oxygen Delivery Method Room Air 09/09/23 16:35 BMI result Body Mass Index 31.1 Tobacco/Smoking Status: Tobacco use Status Tobacco use date assessed 07/22/23 09/09/23 16:48 Patient Tobacco Use Status Former Tobacco user 09/09/23 16:48 e-Cigarette/Vaping Use Never Used 09/09/23 16:48 PHQ-9: PHQ-9 Score PHQ-9: Total score 0 09/09/23 16:48 Depression Screening Interpretation: Negative Thrive Assessment: Date of Thrive Assessment Date Thrive assessed 07/22/23 09/09/23 16:48 Const Other: General: no acute distress, well developed, alert and awake Nutritional Appearance: well nourished Orientation/consciousness: patient oriented x3 HENMT Head: Yes normocephalic and Yes atraumatic Ears: hearing grossly normal bilaterally and TM's normal bilaterally General nose exam: Normal external nose present and Normal nares present Mouth: Normal oral and palatal mucosa present and moist mucous membranes Teeth and gingiva: dentition normal Throat: Yes oropharynx normal Eyes Pupils: Equal, round and reactive pupils present and Pupil accommodation reflex normal EOM: EOMs intact bilaterally Neck Neck: Yes normal visual inspection, Yes no lymphadenopathy and Yes trachea midline Thyroid: Thyroid normal Carotids: no bruits Lymphatic: no lymphadenopathy noted Chest Chest palpation & inspection: normal inspection of the chest Resp Effort & Inspection: normal respiratory effort Auscultation: clear to auscultation bilaterally Cardio Rate: regular rate Rhythm: regular rhythm Heart sounds: S1 normal heart sound present, S2 normal heart sound present, no gallops, no murmurs and no rubs Bruits: no abdominal aortic bruits and no carotid bruits GI Palpation (GI): No Abdominal aortic bruit present, Soft to palpation, nontender, No hepatosplenomegaly present and No Rebound tenderness present Auscultation: normal bowel sounds General: Yes no CVA tenderness Back/Spine/Pelvis Back: no CVA tenderness Cervical Spine: cervical ROM normal and No Cervical spine tenderness Thoracic/Lumbar Spine: thoraco-lumbar ROM normal, No pain with thoraco-lumbar ROM, No thoracic spinal tenderness and No lumbar spinal tenderness Skin General: warm and dry. Normal skin color. Normal skin turgor Lesions: no lesions Rashes: no rashes Trauma: no lacerations or abrasions Wounds: no wounds Nails: normal Neuro General: patient oriented x3, gait normal and CN's II-XI intact bilaterally Cranial nerves: Yes Equal, round and reactive pupils present Cognition (Neuro): normal cognition Gait exam (Neuro): Normal gait present Motor exam (neuro): 5/5 motor strength present throughout Sensory Exam: No Sensory deficit (Neuro) Deep tendon reflexes (DTR's): Right patellar reflex intensity grade: 2+ and Left patellar reflex intensity grade: 2+ Extrem General: Yes normal to inspection, No edema and No calf tenderness Psych Appearance: grossly normal Affect: normal affect Attitude: cooperative Thought process: Normal thought process present Assessment and Plan Assessment & Plan (1) Normal physical exam: Code(s): Z00.00 - Encounter for general adult medical examination without abnormal findings Plan: No significant physical restrictions or limitations noted Continue current treatment regimen Healthy diet and routine exercise encouraged Follow-up in 6 weeks for hyperlipidemia Return sooner with symptoms or concerns Verbalized understanding and agreed with treatment plan (2) Hyperlipidemia: Code(s): E78.5 - Hyperlipidemia, unspecified Plan: Recent lab results reviewed with the patient Unremarkable findings except for elevated triglyceride, total cholesterol, and LDL levels, 208, and 123 respectively, HDL is slightly low, 39. LDL goal is less than 70 Atorvastatin 10 mg every night ordered. Take as prescribed Advised to limit foods high in saturated fat and avoid foods high trans fat Routine exercise encouraged Will recheck lipid panel. Advised to fast for 10-12 hours, may drink water only, and get blood work done before her next visit Follow-up in 6 weeks Verbalized understanding and agreed with treatment plan (3) Bilateral calf pain: Code(s): M79.661 - Pain in right lower leg; M79.662 - Pain in left lower leg Plan: Reports shortness of breath with mild exertion and bilateral calf pain for the past week and half Recent cardiac and pulmonary workup were negative at [facility] Likely viral illness Adequate hydration encouraged May take Tylenol ibuprofen for pain or discomfort Follow-up with worsening or new symptoms Verbalized understanding and agreed with treatment plan (4) Shortness of breath on exertion: Code(s): R06.02 - Shortness of breath Plan: As above Orders: Orders Microalbumin, Random (w Creat) Today E11.9 - Type 2 diabetes mellitus without complications Lipid Panel 6 Weeks E78.5 - Hyperlipidemia, unspecified Medications: New atorvastatin 10 mg PO BEDTIME 30 tabs 3RF 30 days Coding Level of Care Code Est Pt Prev Care 18-39y(77397) Diagnoses Normal physical exam Z00.00 Hyperlipidemia E78.5 Bilateral calf pain M79.661; M79.662 Shortness of breath on exertion R06.02 Additional Codes BULL-7 Assessment Billing - BULL-7 Assessment Tool: BULL-7 Assessment [id number] ([id number])
== END 2023-09-09 18:07 | disposition home or self-care (01) ==
PROVIDERS: PCP Nurse Practitioner Family; Visit Provider Nurse Practitioner Family
DX: Z00.00 Encounter for general adult medical examination without abnormal findings (principal); E78.5 Hyperlipidemia, unspecified; M79.661 Pain in right lower leg; M79.662 Pain in left lower leg; R06.02 Shortness of breath
CPT/HCPCS: 99395

== ENCOUNTER → 2023-09-16 08:44 | Outpatient (REF) | payer OTHER, SELFPAY ==
--- NOTE | 2023-09-16 08:48 | CA_ITS ---
Acquisition Time: 2023-09-16 08:55:33 Total Exercise Time: 00:10:04 Test Indications: SOB Medications: SEE H Protocol: OTF Max HR: 190 BPM 100% of Pred: 189 BPM Max BP: 142/060 mmHG Max Work Load: 11.8 METS Exercise stress test exercise 10 min 4 sec of Otf protocol achieving 100% MPHR, with mild SOB, 3/10 chest heaviness, without arrhythmias, with normotenisve response to exercise, witout EKG changes. Chest heaviness resolved with rest. Test reviewed with Dr. Santoyo. Referred By: Levi Shaw Overread By: Charley Robertson
== END ==
LOC: HO.CARD 08:44
PROVIDERS: PCP Nurse Practitioner Family; Visit Provider Internal Medicine Pulmonary Disease
DX: R06.02 Shortness of breath (principal)
CPT/HCPCS: 93017

== ENCOUNTER → 2023-09-16 08:48 | Outpatient (BNV) | payer OTHER, SELFPAY | PROVIDERS: PCP Nurse Practitioner Family; Visit Provider Nurse Practitioner | DX: R07.89 Other chest pain (principal); R06.02 Shortness of breath | CPT/HCPCS: 93016; 93018 ==

== ENCOUNTER 2024-01-20 14:54 | Outpatient (AMB) | payer OTHER, SELFPAY ==
--- NOTE | 2024-01-20 14:56 | MHC.PC.OV ---
Vital Signs 01/20/24 15:04 Height 5 ft 1.1 in Weight 157 lb BMI 29.6 BP 108/72 Blood Pressure Location Lt brachial Position Sitting Respiration 12 Pulse 92 Pulse Source Pulse Oximeter Temp 98.2 F Temp Source Oral Pulse Oximetry (%) 96 Oxygen Delivery Method Room Air Intake Visit Reasons: [facility] from [facility] Intake Note: New patient visit. Cant take 3mg of Trulicity. Intense stomach pain, loose stool, and hard time passing bowels. 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: No Is last menstrual period known: Yes Last menstrual period: 02/01/24 Allergies lisinopril Adverse Reaction (Severe, Verified 09/09/23 17:16) Cough ARTIFICIAL SWEETENERS Allergy (Intermediate, Uncoded 09/09/23 17:16) HIVES, VOMITING Tobacco use date assessed: 07/22/23 Dental Screening Dental Screen Date: 01/20/24 Did you have a dental visit in the last 12 months?: No Did you have a dental problem in the last 6 months where you did not have access to dental care?: No Was dental information given to patient?: Patient has dentist HPI HPI Comments History of Present Illness Details This is a 33-year-old female with a past medical history of uncontrolled type 2 diabetes, hyperlipidemia and hypertension presenting to [facility]. Her prior PCP is no longer at this office. Type 2 diabetes-she developed type 2 diabetes after having gestational diabetes approximately 12 years ago. She was seen by endocrinology. Her current regimen is metformin 1000 mg per day. She had GI upset on higher dosages. She was treated with 1.5 mg of Trulicity for years. Her hemoglobin A1c increased to 9.3%, and her Trulicity was increased to 3 mg at her follow-up visit in August. She tried it for a month, but she could not tolerate GI distress including abdominal pain. She has been out of the medication for the last couple of months. She uses a CGM, but she has to pay out of pocket so she only monitor sugars for 1-2 weeks per month. Postprandial glucose readings are between 140-180. Her sugars are higher in the morning when she is fasting. She checks around 5 or 6 am and BG ranges 200-250. Her last meal is at 6:30pm, and she is very careful about balancing her diet and following a diabetic diet. Denies hypoglycemia. Eye exam UTD. Her hemoglobin A1c is 9.7%, and POC is 216. Hypertension-BP 108/72. She is on spironolactone. She has PCOS. Hyperlipidemia-taking atorvastatin 10 mg. She has not had her lipid profile checked since starting the medication. She is a nonsmoker. She exercises. ROS: Eyes: No vision changes Respiratory: No shortness of breath Cardiovascular: No chest pain Neurologic: No numbness or tingling. Endocrine: No cold or heat intolerance. No polyuria or polydipsia. Physical exam: Constitutional: Alert, in no distress. Neck: Supple, Full range of motion. No lymphadenopathy. No palpable thyroid masses. Respiratory: Clear to auscultation. Cardiovascular: S1 S2 regular. No murmurs Extremities: Warm and well perfused. No clubbing, cyanosis or edema. Psychiatric: Normal mood and affect [facility] Medical History (Updated 01/20/24 @ 16:02 by YUMIKO Coombs) Uncontrolled type 2 diabetes mellitus with hyperglycemia Chronic allergic rhinitis Eczema Atopic dermatitis Diabetes Hx of type 2 diabetes mellitus History of PCOS Surgical History Hx of section Hx of tubal ligation Family History (Updated 09/09/23 @ 16:44 by ELIZA Pratt) Father Myocardial infarction, Onset Age: 45 CVD (cardiovascular disease) Social History (Updated 01/20/24 @ 15:03 by Sabrina Alejo CMA) Housing: House Alcohol intake: current Alcohol intake frequency: holidays/special occasions only Patient Tobacco Use Status: Former Tobacco user Cigarette Packs Per Day: 0.5 Years Smoked: 9 e-Cigarette/Vaping Use: Never Used Second Hand Smoke Exposure: No service: No Current occupational status: employed 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 Brad Dao, Wendy Johnson, Noé Escobar and colleagues, with an educational lefty from [employer]. Physical exam (Primary Care) Vital Signs: Last Vital Signs Temp 98.2 F 01/20/24 15:04 Pulse 92 01/20/24 15:04 Resp 12 01/20/24 15:04 BP 108/72 01/20/24 15:04 Pulse Ox 96 01/20/24 15:04 Oxygen Delivery Method Room Air 01/20/24 15:04 BMI result Body Mass Index 29.6 Tobacco/Smoking Status: Tobacco use Status Tobacco use date assessed 07/22/23 01/20/24 15:04 Patient Tobacco Use Status Former Tobacco user 01/20/24 15:04 e-Cigarette/Vaping Use Never Used 01/20/24 15:04 Thrive Assessment: Date of Thrive Assessment Date Thrive assessed 07/22/23 01/20/24 15:04 Results AMB Random Glucose (hemocue) AMB Random Glucose (hemocue) 216 mg/dL Last Edit by Sabrina Alejo CMA on 01/20/24 16:08 AMB Hemoglobin A1c AMB Hemoglobin A1c 9.7 % Last Edit by Sabrina Alejo CMA on 01/20/24 16:10 Assessment and Plan Assessment & Plan (1) Uncontrolled type 2 diabetes mellitus with hyperglycemia: Code(s): E11.65 - Type 2 diabetes mellitus with hyperglycemia Plan: We discussed options. She would like to restart Trulicity 1.5 mg. Continue Metformin. Elevated fasting glucose early in the morning may be due to nocturnal production of glucagon causing hyperglycemia. Discussed eating a snack before bedtime consisting of protein and can have a complex carb with this. If A1c is not at goal and a.m. glucose not improving we discussed adding Lantus in the evening. CGM would likely be covered by insurance if she requires addition of insulin. She can send me a message in a month via the patient portal with readings. (2) Hyperlipidemia: Code(s): E78.5 - Hyperlipidemia, unspecified Qualifiers: Hyperlipidemia type: mixed hyperlipidemia Qualified Code(s): E78.2 - Mixed hyperlipidemia Plan: Check fasting lipid profile on atorvastatin. Continue lifestyle modifications. (3) Hypertension goal BP (blood pressure) < 130/80: Code(s): I10 - Essential (primary) hypertension Plan: Blood pressure is at goal. She is on spironolactone because she also has PCOS. Recommended low-sodium diet and avoidance of caffeine. Orders: Orders Hemoglobin A1c POC Today E11.65 - Type 2 diabetes mellitus with hyperglycemia AMB Random Glucose (hemocue) Today E11.65 - Type 2 diabetes mellitus with hyperglycemia, Z13.9 - Encounter for screening, unspecified Comprehensive Met. Panel Today E11.65 - Type 2 diabetes mellitus with hyperglycemia, E78.5 - Hyperlipidemia, unspecified Lipid Panel Today E11.65 - Type 2 diabetes mellitus with hyperglycemia, E78.5 - Hyperlipidemia, unspecified Medications: New dulaglutide (Trulicity) 1.5 mg (0.5 mL) subcut QWEEK 2 mL 11RF Discontinued dulaglutide (Trulicity) Discontinued Reason: Doctor's Order 3 mg (0.5 mL) subcut QWEEK 30 days 2.5 mL 3RF Patient Instructions: Follow up in 3 months for type 2 diabetes. Coding Level of Care Code Est Pt Level 4 (17239) Complex EM visit Add On G2211 Diagnoses Uncontrolled type 2 diabetes mellitus with hyperglycemia E11.65 Mixed hyperlipidemia E78.2 Hyperlipidemia type: mixed hyperlipidemia Hypertension goal BP (blood pressure) < 130/80 I10
[2024-01-20 15:04] VITALS: BP 108/72; PULSE 92; RESP 12; TEMP 36.8; O2SAT 96; BMI 29.6
== END 2024-01-20 16:11 | disposition home or self-care (01) ==
PROVIDERS: PCP Physician Assistant Medical; Visit Provider Physician Assistant Medical
DX: E11.65 Type 2 diabetes mellitus with hyperglycemia (principal); E78.2 Mixed hyperlipidemia; I10 Essential (primary) hypertension; Z13.9 Encounter for screening, unspecified
CPT/HCPCS: 82948; 83036; 99214

== ENCOUNTER 2024-04-20 08:06 | Outpatient (REF) | payer OTHER, SELFPAY ==
[2024-04-20 09:10] LABS: Alanine Aminotransferase 56 U/L (0-31); Albumin Level 4.5 g/dL (3.5-5.0); Alkaline Phosphatase 72 U/L (39-117); Anion Gap 13 (12-20); Aspartate Amino Transferase 27 U/L (5-31); Bilirubin Total 0.6 mg/dL (0.0-1.0); Blood Urea Nitrogen 13 mg/dL (9-16); Calcium 9.7 mg/dL (8.4-10.2); Carbon Dioxide 21 mmol/L (22-29); Chloride 104 mmol/L (96-108); Cholesterol 165 mg/dL (<200); Estimated Glomerular Filt Rate > 60; Glucose Random 268 mg/dL (60-115); HDL Cholesterol 31 mg/dL (>40); Potassium 4.1 mmol/L (3.3-5.1); Sodium 134 mmol/L (135-145); Total Protein 7.3 g/dL (6.5-8.0); Triglycerides 416 mg/dL (<150)
== END 2024-04-20 08:07 | disposition home or self-care (01) ==
LOC: HO.LAB 08:06
PROVIDERS: PCP Physician Assistant Medical; Visit Provider Nurse Practitioner Family
DX: E11.65 Type 2 diabetes mellitus with hyperglycemia (principal); E78.5 Hyperlipidemia, unspecified
CPT/HCPCS: 36415; 80053; 80061; 82043; 82570

== ENCOUNTER 2024-04-23 08:44 | Outpatient (AMB) | payer OTHER, SELFPAY ==
--- NOTE | 2024-04-23 08:48 | A.OFFPC_ITS ---
Vital Signs 04/23/24 08:54 Height 5 ft 1.1 in Weight 160 lb 4 oz BMI 30.2 BP 110/80 Blood Pressure Location Rt brachial Position Sitting Respiration 14 Pulse 84 Pulse Source Pulse Oximeter Temp 98.2 F Temp Source Oral Pulse Oximetry (%) 98 Oxygen Delivery Method Room Air Intake Visit Reasons: fu diabetes Intake Note: f/u diabetes Allergies lisinopril Adverse Reaction (Severe, Verified 04/23/24 08:52) Cough ARTIFICIAL SWEETENERS Allergy (Intermediate, Uncoded 04/23/24 08:52) HIVES, VOMITING Tobacco use date assessed: 07/22/23 Dental Screening Dental Screen Date: 01/20/24 HPI HPI Comments History of Present Illness Details This is a 33-year-old female with a past medical history of uncontrolled type 2 diabetes, hyperlipidemia and hypertension presenting for follow up. Type 2 diabetes-she developed type 2 diabetes after having gestational diabetes approximately 12 years ago. She was seen by endocrinology. Her current regimen is metformin extended release a 1000 mg twice daily and Trulicity 1.5 mg weekly. It is causing nausea, bloating and sometimes vomiting in the 2 days following injection. She purchases a CGM every couple of months [id number]. Patient says insurance did not cover the freestyle meter that was sent back in July. She does not have a fingerstick glucometer. Denies hypoglycemia. Eye exam UTD. Patient just started treatment with a dietitian via telehealth. Patient did not take Trulicity last week, and her symptoms resolved. Tried Januvia in the past and Victoza. Tried Glipizide and believes it was discontinued due to lack of efficacy. We reviewed her lab results. Hemoglobin A1c 9% down from 9.7%. AST 27, alkaline phosphatase 72 and ALT mildly elevated at 56. She has a history of this dating back to at least 2019. She has not had a liver ultrasound, but she was told at 1 point she probably has fatty liver. Triglycerides 416, total cholesterol 165, LDL not calculated, HDL 31. Taking atorvastatin 10 mg nightly. Patient does not drink alcohol except occasionally in social situations. She does not drink beer. She does not smoke. She has microalbuminuria. Lisinopril previously discontinued due to cough. Patient currently on spironolactone for PCOS. ROS: Eyes: No vision changes Respiratory: No shortness of breath Cardiovascular: No chest pain Neurologic: No numbness or tingling. Endocrine: No cold or heat intolerance. No polyuria or polydipsia. Physical exam: Constitutional: Alert, in no distress. Neck: Supple, Full range of motion. No lymphadenopathy. No palpable thyroid masses. Respiratory: Clear to auscultation. Cardiovascular: S1 S2 regular. No murmurs Abdomen: Soft, nontender, no organomegaly or palpable masses, nondistended. Extremities: Warm and well perfused. No clubbing, cyanosis or edema. Psychiatric: Normal mood and affect [facility] Medical History (Updated 04/23/24 @ 09:34 by YUMIKO Coombs) Elevated liver enzymes Microalbuminuric diabetic nephropathy Uncontrolled type 2 diabetes mellitus with hyperglycemia Chronic allergic rhinitis Eczema Atopic dermatitis Diabetes Hx of type 2 diabetes mellitus History of PCOS Surgical History Hx of section Hx of tubal ligation Family History (Updated 09/09/23 @ 16:44 by ELIZA Pratt) Father Myocardial infarction, Onset Age: 45 CVD (cardiovascular disease) Social History (Updated 01/20/24 @ 15:03 by Sabrina Alejo CMA) Housing: House Alcohol intake: current Alcohol intake frequency: holidays/special occasions only Patient Tobacco Use Status: Former Tobacco user Cigarette Packs Per Day: 0.5 Years Smoked: 9 e-Cigarette/Vaping Use: Never Used Second Hand Smoke Exposure: No service: No Current occupational status: employed 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 Brad Dao, Wendy Johnson, Noé Escobar and colleagues, with an educational lefty from [employer]. Physical exam (Primary Care) Vital Signs: Last Vital Signs Temp 98.2 F 04/23/24 08:54 Pulse 84 04/23/24 08:54 Resp 14 04/23/24 08:54 BP 110/80 04/23/24 08:54 Pulse Ox 98 04/23/24 08:54 Oxygen Delivery Method Room Air 04/23/24 08:54 BMI result Body Mass Index 30.2 Tobacco/Smoking Status: Tobacco use Status Tobacco use date assessed 07/22/23 04/23/24 08:49 Patient Tobacco Use Status Former Tobacco user 04/23/24 08:49 e-Cigarette/Vaping Use Never Used 04/23/24 08:49 Thrive Assessment: Date of Thrive Assessment Date Thrive assessed 07/22/23 04/23/24 08:49 Results AMB Hemoglobin A1c AMB Hemoglobin A1c 9.0 % Last Edit by ELIZA Monroe on 04/23/24 09:06 Coding Level of Care Code Est Pt Level 4 (69813) Complex EM visit Add On G2211 Diagnoses Uncontrolled type 2 diabetes mellitus with hyperglycemia E11.65 Mixed hyperlipidemia E78.2 Hyperlipidemia type: mixed hyperlipidemia Microalbuminuric diabetic nephropathy E11.21 Hypertension goal BP (blood pressure) < 130/80 I10 Elevated liver enzymes R74.8 Assessment & Plan Assessment & Plan (1) Uncontrolled type 2 diabetes mellitus with hyperglycemia: Code(s): E11.65 - Type 2 diabetes mellitus with hyperglycemia Category: Medical Plan: Stop Trulicity due due to side effects. Continue metformin extended release a 1000 mg twice daily. Start Mounjaro 2.5 mg weekly. She denies contraindications to the medication. Side effects reviewed. We discussed titration based on tolerability and response to lower A1c to less than 7%. Discussed pathophysiology of Type II Diabetes Mellitus with the patient in detail.? I explained the superintendent container terminal risks and complications associated with uncontrolled diabetes including nephropathy, neuropathy, peripheral vascular disease, retinopathy, increased risk of heart disease and stroke.? Discussed lifestyle modification with the patient. Recommended 30 minutes of moderately vigorous exercise 5 days per week to promote weight loss. She is working with a leather softener now. It looks like insurance may cover One-Touch glucometer. I sent this to the pharmacy. I will also see if they will cover the Dexcom G7. (2) Hyperlipidemia: Code(s): E78.5 - Hyperlipidemia, unspecified Category: Medical Qualifiers: Hyperlipidemia type: mixed hyperlipidemia Qualified Code(s): E78.2 - Mixed hyperlipidemia Plan: Mixed hyperlipidemia. She has tried fish oil, and it caused belching that was unpleasant for the patient. We will increase atorvastatin to 20 mg and repeat labs and work on glycemic control. Lifestyle modifications reviewed. (3) Microalbuminuric diabetic nephropathy: Code(s): E11.21 - Type 2 diabetes mellitus with diabetic nephropathy Category: Medical Plan: She did not tolerate lisinopril. Currently on spironolactone. I do not recommend adding losartan while on spironolactone due to risk of hyperkalemia. She does not want to make medication changes at this time. (4) Hypertension goal BP (blood pressure) < 130/80: Code(s): I10 - Essential (primary) hypertension Category: Medical Plan: Controlled. Continue low-sodium diet and avoidance of caffeine. On spironolactone. (5) Elevated liver enzymes: Code(s): R74.8 - Abnormal levels of other serum enzymes Category: Medical Plan: Liver ultrasound ordered to screen for hepatic steatosis. Repeat labs along with hepatitis screening at next visit. Recommend low-cholesterol diet and avoidance of alcohol. We are adjusting the dose of her statin as above. Plan Follow up in 3 months. Orders: Orders AMB Hemoglobin A1c Today E11.65 - Type 2 diabetes mellitus with hyperglycemia US abdomen limited Today R74.8 - Abnormal levels of other serum enzymes Lipid Panel 3 Months E11.21 - Type 2 diabetes mellitus with diabetic nephropathy, E11.65 - Type 2 diabetes mellitus with hyperglycemia, E78.5 - Hyperlipidemia, unspecified, R74.8 - Abnormal levels of other serum enzymes LDL Cholesterol Direct 3 Months E11.21 - Type 2 diabetes mellitus with diabetic nephropathy, E11.65 - Type 2 diabetes mellitus with hyperglycemia, E78.2 - Mixed hyperlipidemia, R74.8 - Abnormal levels of other serum enzymes Hepatitis A,B,C Profile 3 Months E11.21 - Type 2 diabetes mellitus with diabetic nephropathy, E11.65 - Type 2 diabetes mellitus with hyperglycemia, E78.2 - Mixed hyperlipidemia, R74.8 - Abnormal levels of other serum enzymes Comprehensive Met. Panel 3 Months E11.21 - Type 2 diabetes mellitus with diabetic nephropathy, E11.65 - Type 2 diabetes mellitus with hyperglycemia, E78.2 - Mixed hyperlipidemia, R74.8 - Abnormal levels of other serum enzymes Hemoglobin A1c 3 Months E11.21 - Type 2 diabetes mellitus with diabetic nephropathy, E11.65 - Type 2 diabetes mellitus with hyperglycemia, E11.9 - Type 2 diabetes mellitus without complications, E78.2 - Mixed hyperlipidemia, R74.8 - Abnormal levels of other serum enzymes Medications: New blood-glucose sensor (Dexcom G7 Sensor device) apply new sensor every 10 days as directed 3 ea 11RF blood-glucose meter,continuous (Dexcom G7 Pigment Furnace Tender) As directed 1 ea 0RF tirzepatide (Mounjaro) for 4 weeks 2.5 mg (0.5 mL) subcut QWEEK 2 mL 0RF atorvastatin 20 mg PO BEDTIME 90 tabs 3RF blood-glucose meter (OneTouch Verio Flex Meter) As directed 1 ea 0RF blood sugar diagnostic (OneTouch Verio test strips) Use as directed to check blood glucose twice daily. 100 ea 5RF lancets (HandleTouch Delica Plus Lancet) Use as directed to check blood glucose twice daily. 100 ea 5RF Discontinued lancets (FreeStyle Lancets) Discontinued Reason: Doctor's Order POC TID 100 ea 4RF blood-glucose meter (FreeStyle Lite Meter kit) Discontinued Reason: Doctor's Order As directed 1 ea 0RF flash glucose scanning reader (FreeStyle Radames 2 Buckeye) Discontinued Reason: Doctor's Order As directed 1 ea 0RF atorvastatin Discontinued Reason: Doctor's Order 10 mg PO BEDTIME 30 days 30 tabs 3RF blood sugar diagnostic (FreeStyle Lite Strips) Discontinued Reason: Doctor's Order POC TID 100 ea 4RF flash glucose sensor (FreeStyle Radames 2 Sensor kit) Discontinued Reason: Doctor's Order As directed 2 ea 1RF dulaglutide (Trulicity) Discontinued Reason: Doctor's Order 1.5 mg (0.5 mL) subcut QWEEK 2 mL 11RF
[2024-04-23 08:54] VITALS: BP 110/80; PULSE 84; RESP 14; TEMP 36.8; O2SAT 98; BMI 30.2
== END 2024-04-23 09:41 | disposition home or self-care (01) ==
PROVIDERS: PCP Physician Assistant Medical; Visit Provider Physician Assistant Medical
DX: E11.65 Type 2 diabetes mellitus with hyperglycemia (principal); E78.2 Mixed hyperlipidemia; E11.21 Type 2 diabetes mellitus with diabetic nephropathy; I10 Essential (primary) hypertension; R74.8 Abnormal levels of other serum enzymes

== ENCOUNTER → 2024-04-23 08:44 | Outpatient (BNVA) | payer OTHER, SELFPAY | PROVIDERS: PCP Physician Assistant Medical; Visit Provider Physician Assistant Medical | DX: E11.65 Type 2 diabetes mellitus with hyperglycemia (principal); E78.2 Mixed hyperlipidemia; E11.21 Type 2 diabetes mellitus with diabetic nephropathy; I10 Essential (primary) hypertension; R74.8 Abnormal levels of other serum enzymes; Z79.84 Long term (current) use of oral hypoglycemic drugs | CPT/HCPCS: 83036 ==

== ENCOUNTER 2024-05-03 09:42 | Outpatient (REF) | payer OTHER, SELFPAY ==
--- NOTE | ~2024-05-03 | US_ITS ---
EXAMINATION: US ABDOMEN LIMITED CLINICAL INFORMATION: Abnormal levels of other serum enzymes. COMPARISON: None available. TECHNIQUE: Real-time imaging of the right upper quadrant abdominal viscera. FINDINGS: PANCREAS: No peripancreatic fluid collections. LIVER: Liver measures 19 cm. Coarse echotexture. No solid or cystic lesion. No intrahepatic biliary ductal dilatation . GALLBLADDER: Fluid-filled. No pericholecystic fluid collection, gallbladder wall thickening or intraluminal abnormality. COMMON BILE DUCT: 4 mm in diameter. RIGHT KIDNEY: Normal echotexture. No solid or cystic lesion. No hydronephrosis. The kidney measures 12.6 cm in maximum dimension. Normal flow on color Doppler interrogation of the renal hilum. FREE FLUID: None. US/US abdomen limited IMPRESSION: Hepatomegaly and likely hepatic steatosis. No cholelithiasis. No hydronephrosis, right kidney. No ascites. Electronically signed by: Enrique Sanchez MD 05/22/2024 08:44 AM [facility] [place]
== END 2024-05-03 09:43 | disposition home or self-care (01) ==
LOC: HO.US 09:42
PROVIDERS: PCP Physician Assistant Medical; Visit Provider Physician Assistant Medical
DX: R74.8 Abnormal levels of other serum enzymes (principal)
CPT/HCPCS: 76705

== ENCOUNTER → 2024-05-03 09:45 | Outpatient (BNV) | payer OTHER, SELFPAY | PROVIDERS: PCP Physician Assistant Medical; Visit Provider Radiology Diagnostic Radiology | DX: R74.8 Abnormal levels of other serum enzymes (principal) | CPT/HCPCS: 76705 ==

== ENCOUNTER 2024-07-05 10:02 | Outpatient (AMB) | payer OTHER, SELFPAY ==
--- NOTE | 2024-07-05 10:08 | A.OFFPC_ITS ---
Vital Signs 07/05/24 10:13 Height 5 ft 1.1 in Weight 154 lb BMI 29.0 BP 102/68 Blood Pressure Location Lt brachial Position Sitting Respiration 13 Pulse 105 H Pulse Source Pulse Oximeter Pulse Oximetry (%) 98 Oxygen Delivery Method Room Air Intake Visit Reasons: Eczema follow-up Intake Note: follow up on eczema on both eyes also patient complaining of tachycardia, and chest heaviness, patient had a ekg done yesterday. Digital Project Coordinator Required: No Allergies lisinopril Adverse Reaction (Severe, Verified 07/05/24 10:09) Cough ARTIFICIAL SWEETENERS Allergy (Intermediate, Uncoded 04/23/24 08:52) HIVES, VOMITING Tobacco use date assessed: 07/22/23 Dental Screening Dental Screen Date: 01/20/24 HPI HPI Comments History of Present Illness Details This is a 33-year-old female with a past medical history of type 2 diabetes, microalbuminuria diabetic nephropathy, hepatic steatosis, elevated liver enzymes and eczema presenting for palpitations. Patient says initially she made this appointment for eczema on her face, but it is improving with use of [id number] hydrocortisone. She kept the appointment because she wanted to discuss palpitations. Episodes started 4 years ago and are intermittent. She may go multiple days having palpitations every day and then a month without having symptoms. She describes it as feeling vigorous, fast heartbeats. Episodes may last a few seconds or several minutes. They are associated with a feeling of heaviness in her chest and sometimes dizziness and shortness of breath. She denies syncope. She had an EKG done at [facility] yesterday which showed normal sinus rhythm and a heart rate of 99 beats per minute. Her heart rate today is 105. She has been monitoring, and her heart rate has been between 90 and 110. She had another EKG in August of this year which was also normal. She had a negative chest x-ray for symptoms in 08/2023. She had a an essentially normal echocardiogram 09/09/2023, and she had a negative exercise stress test on 09/16/2023. The patient says the episodes happen randomly and are not associated with exertion. She may just be sitting down when she feels them. She stopped drinking alcohol because she noticed that triggered them. She also feels that they occur more frequently during cold weather. She denies coughing, wheezing or history of smoking. She says that they have been more frequent during the past 3 weeks than in the previous for years. The patient's father from an [place] at age 45. She does not use decongestants. She is not on stimulants. She drinks 1-2 cups of coffee in the morning. She denies anxiety and says no one around her would describe her as an anxious person. Patient says she is staying well hydrated throughout the day. She makes sure to drink fluids on Mounjaro. She is not having vomiting or diarrhea with the medication. She gets nausea the day after which she will treat with Zofran sometimes. Per CGM her diabetes is now well-controlled -see uploads to portal. She was able to stop insulin. ROS: Constitutional: No unexplained weight loss, fever, chills, fatigue or night sweats. Respiratory: No wheezing, cough or sputum production. Cardiovascular: See HPI. Denies lower extremity edema. Neurologic: No syncope, numbness or weakness. Hematologic/Lymphatics: No bleeding or bruising. Denies history of blood clots. Endocrine: No cold or heat intolerance. No polyuria or polydipsia. Psychiatric: No depression or anxiety. No SI/HI. Physical exam: Constitutional: Alert, in no distress. Head: Normocephalic. Eyes: Pupils are equal, round and reactive to light. Extraocular muscles intact. Neck: Supple, Full range of motion. No lymphadenopathy. No palpable thyroid masses. Respiratory: Clear to auscultation. Cardiovascular: S1 S2 regular. No murmurs. No carotid bruits. Chest: Nontender to palpation Gastrointestinal: Abdomen soft, non-tender, non-distended. Normal bowel sounds. No palpable masses. Neurologic: No focal neurological deficits. Extremities: Warm and well perfused. No clubbing, cyanosis or edema. 3+ peripheral pulses bilaterally. Psychiatric: Normal mood and affect [facility] Medical History (Updated 07/05/24 @ 10:51 by YUMIKO Coombs) Chest heaviness Palpitations Hepatomegaly Hepatic steatosis Elevated liver enzymes Microalbuminuric diabetic nephropathy Uncontrolled type 2 diabetes mellitus with hyperglycemia Chronic allergic rhinitis Eczema Atopic dermatitis Diabetes Hx of type 2 diabetes mellitus History of PCOS Surgical History Hx of section Hx of tubal ligation Family History (Updated 09/09/23 @ 16:44 by ELIZA Pratt) Father Myocardial infarction, Onset Age: 45 CVD (cardiovascular disease) Social History (Updated 01/20/24 @ 15:03 by Sabrina Alejo CMA) Housing: House Alcohol intake: current Alcohol intake frequency: holidays/special occasions only Patient Tobacco Use Status: Former Tobacco user Cigarette Packs Per Day: 0.5 Years Smoked: 9 e-Cigarette/Vaping Use: Never Used Second Hand Smoke Exposure: No service: No Current occupational status: employed 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 1. Little interest or pleasure in doing things: not at all 2. Feeling down, depressed, or hopeless: not at all 3. Trouble falling or staying asleep, or sleeping too much: not at all 4. Feeling tired or having little energy: not at all 5. Poor appetite or overeating: not at all 6. Feeling bad about yourself - or that you are a failure or have let yourself or your family down: not at all 7. Trouble concentrating on things, such as reading the newspaper or watching television: not at all 8. Moving or speaking so slowly that other people could have noticed. Or the opposite - being so fidgety or restless that you have been moving around a lot more than usual: not at all 9. Thoughts that you would be better off or of hurting yourself in some way: not at all Total score: 0 68579 - PHQ-9 Billing: Yes Source: Developed by Drs. Brad Dao, Wendy Johnson, Noé Escobar and colleagues, with an educational lefty from [employer]. Thrive Questionnaire Date Thrive assessed: 07/05/24 I am a: Patient What is your living situation today?: I have a steady place to live Within the past 12 months, did the food you bought not last and you didn't have the money to get more?: Never true Within the past 12 months, did you worry whether your food would run out before you got money to buy more?: Never true Do you have trouble paying for medicines?: No Do you have trouble getting transportation to medical appointments?: No Do you have trouble paying your heating and electricity bill?: No Do you have trouble taking care of your child, family member or friend?: No Do you have trouble with day-to-day activities such as bathing, preparing meals, shopping, managing finances, etc.?: No Are you currently unemployed and looking for a job?: No Are you interested in more education?: No Please select the resources that you would like help with: None Currently or been in a relationship where the following occur: No concerns reported THRIVE Score: 0 AUDIT C Alcohol Use Questionnaire (AUDIT-C) 1. How often do you have a drink containing alcohol?: Never Total Score: 0 BULL-7 AMB Questionnaire BULL-7 Date BULL - 7 assessed: 07/05/24 Feeling nervous, anxious, or on edge: 0 = Not at all Not being able to stop or control worryin = Not at all Worrying too much about different things: 0 = Not at all Trouble relaxin = Not at all Being so restless that it is hard to sit still: 0 = Not at all Becoming easily annoyed or irritable: 0 = Not at all Feeling afraid as if something awful might happen: 0 = Not at all Total BULL-7 score (0-4 normal; 5-9 mild; 10-14 moderate; 15-21 severe): 0 Source: Developed by Drs. Brad Dao, Wendy Johnson, Noé Escobar and colleagues, with an educational lefty from [employer]. BULL-7 Assessment Billing BULL-7 Assessment Tool: BULL-7 Assessment 20078 Physical exam (Primary Care) Vital Signs: Last Vital Signs Pulse 105 H 07/05/24 10:13 Resp 13 07/05/24 10:13 BP 102/68 07/05/24 10:13 Pulse Ox 98 07/05/24 10:13 Oxygen Delivery Method Room Air 07/05/24 10:13 BMI result Body Mass Index 29.0 Tobacco/Smoking Status: Tobacco use Status Tobacco use date assessed 07/22/23 07/05/24 10:15 Patient Tobacco Use Status Former Tobacco user 07/05/24 10:15 e-Cigarette/Vaping Use Never Used 07/05/24 10:15 PHQ-9: PHQ-9 Score PHQ-9: Total score 0 07/05/24 10:15 Thrive Assessment: Date of Thrive Assessment Date Thrive assessed 07/05/24 07/05/24 10:15 Currently or been in a relationship where the following occur: No concerns reported Coding Level of Care Code Est Pt Level 4 (24146) Complex EM visit Add On G2211 Diagnoses Palpitations R00.2 Chest heaviness R07.89 Additional Codes BULL-7 Assessment Billing - BULL-7 Assessment Tool: BULL-7 Assessment 16528 ([id number]) PHQ-9 - 78672 - PHQ-9 Billing: Yes ([id number]) Assessment & Plan Assessment & Plan (1) Palpitations: Code(s): R00.2 - Palpitations Category: Medical (2) Chest heaviness: Code(s): R07.89 - Other chest pain Category: Medical Plan The patient is well-appearing. EKG was normal yesterday. Given her family history and symptoms she did have cardiac workup within the past year which was reassuring. We will proceed with a Holter monitor and referral to Cardiology for evaluation of symptoms. I have also ordered stat D-dimer, troponin and BNP. She has no lower extremity edema or hypoxia so I expect these tests will be normal. She will also have TSH, Mag, electrolytes and CBC drawn today. Warning signs warranting ER evaluation reviewed with the patient. I advised her to continue to stay well hydrated and try to decrease her caffeine intake. She will continue to avoid alcohol. She has a follow up scheduled with me in a couple of weeks. Orders: Orders B Type Natriuretic Peptide Today E11.9 - Type 2 diabetes mellitus without complications D Dimer High Sensitivity Today R00.2 - Palpitations Troponin-I High Sensitivity Today R00.2 - Palpitations TSH reflex Free T4 Today R00.2 - Palpitations Magnesium Today R00.2 - Palpitations Basic Metabolic Panel Today R00.2 - Palpitations Complete Blood Count no Diff Today R00.2 - Palpitations ECG holter monitor 48 hour Today R00.2 - Palpitations
[2024-07-05 10:13] VITALS: BP 102/68; PULSE 105; RESP 13; O2SAT 98; BMI 29.0
== END 2024-07-05 10:40 | disposition home or self-care (01) ==
PROVIDERS: PCP Physician Assistant Medical; Visit Provider Physician Assistant Medical
DX: R00.2 Palpitations (principal); R07.89 Other chest pain

== ENCOUNTER → 2024-07-05 10:02 | Outpatient (BNVA) | payer OTHER, SELFPAY | PROVIDERS: PCP Physician Assistant Medical; Visit Provider Physician Assistant Medical | DX: R00.2 Palpitations (principal); R07.89 Other chest pain; E11.9 Type 2 diabetes mellitus without complications; Z82.49 Family history of ischemic heart disease and other diseases of the circulatory system | CPT/HCPCS: 96127 ==

== ENCOUNTER 2024-07-05 10:46 | Outpatient (REF) | payer OTHER, SELFPAY ==
[2024-07-05 14:37] LABS: B Type Natriuretic Peptide < 10 pg/mL (<100); Hemoglobin 13.6 g/dl (12.0-16.0); Mean Corpuscular Hemoglobin 29.5 pg (27.0-33.0); Mean Corpuscular Volume 86.8 fL (80.0-98.0); Platelet Count 252 X10*3/uL (160-400); Red Blood Count 4.61 X10*6/uL (4.20-5.50); Red Cell Distribution Width 12.5 % (11.0-16.0); White Blood Count 10.6 X10*3/uL (4.8-10.8)
[2024-07-05 14:46] LABS: D Dimer High Sensitivity < 150 NG/ML
[2024-07-05 14:51] LABS: Anion Gap 14 (12-20); Blood Urea Nitrogen 7 mg/dL (9-16); Calcium 9.8 mg/dL (8.4-10.2); Carbon Dioxide 23 mmol/L (22-29); Chloride 103 mmol/L (96-108); Estimated Glomerular Filt Rate > 60; Glucose Random 106 mg/dL (60-115); Magnesium 1.9 mg/dL (1.6-2.6); Potassium 3.9 mmol/L (3.3-5.1); Sodium 136 mmol/L (135-145)
[2024-07-05 14:54] LABS: Troponin-I High Sensitivity < 2.7 ng/L (<3.5-17.0)
[2024-07-05 15:08] LABS: TSH reflex Free T4 1.21 uIU/mL (0.32-4.0)
== END 2024-07-05 10:47 | disposition home or self-care (01) ==
LOC: HO.WFDLDS 10:46
PROVIDERS: Visit Provider Physician Assistant Medical
DX: E11.9 Type 2 diabetes mellitus without complications (principal); R00.2 Palpitations
CPT/HCPCS: 36415; 80048; 83735; 83880; 84443; 84484; 85027; 85379

== ENCOUNTER → 2024-07-13 07:25 | Outpatient (REF) | payer OTHER, SELFPAY | LOC: HO.CARD 07:25 | PROVIDERS: PCP Physician Assistant Medical; Visit Provider Physician Assistant Medical | DX: R00.2 Palpitations (principal) | CPT/HCPCS: 93225 ==

== ENCOUNTER → 2024-07-13 07:27 | Outpatient (BNV) | payer OTHER, SELFPAY | PROVIDERS: PCP Physician Assistant Medical; Visit Provider Internal Medicine Cardiovascular Disease | DX: R00.0 Tachycardia, unspecified (principal) | CPT/HCPCS: 93227 ==

== ENCOUNTER 2024-07-19 08:04 | Outpatient (REF) | payer OTHER, SELFPAY ==
[2024-07-19 08:47] LABS: Estimated Average Glucose 140 mg/dL; Hemoglobin A1C 163.5608 umol/L; Hemoglobin A1c % 6.5 % (<6.0); Total Hemoglobin (HGBA1C) 3416.8347 umol/L
[2024-07-19 09:05] LABS: Alanine Aminotransferase 29 U/L (0-31); Albumin Level 4.7 g/dL (3.5-5.0); Alkaline Phosphatase 77 U/L (39-117); Anion Gap 11 (12-20); Aspartate Amino Transferase 20 U/L (5-31); Bilirubin Total 0.5 mg/dL (0.0-1.0); Blood Urea Nitrogen 8 mg/dL (9-16); Carbon Dioxide 26 mmol/L (22-29); Chloride 105 mmol/L (96-108); Cholesterol 154 mg/dL (<200); Estimated Glomerular Filt Rate > 60; Glucose Random 128 mg/dL (60-115); HDL Cholesterol 39 mg/dL (>40); LDL Cholesterol Calculated 88 mg/dL (<100); Potassium 4.1 mmol/L (3.3-5.1); Sodium 138 mmol/L (135-145); Total Protein 7.5 g/dL (6.5-8.0); Triglycerides 139 mg/dL (<150)
[2024-07-19 09:29] LABS: HBS Num1 473.97 mIU/mL (0-7.99); HBc Num1 0.07 S/CO (0.00-0.79); HBsAGNum1 0.37 S/CO (0.00-0.99); Hepatitis A Antibody IgM 0.26 Index (0-0.79); Hepatitis B Core Antibody Nonreactive (Nonreactive); Hepatitis B Surface Antigen Negative (Negative); ~HepC Num1 0.11 S/CO (0.00-0.79); ~Hepatitis A Antibody IgM Nonreactive (Nonreactive); ~Hepatitis B Surface Antibody REACTIVE (Nonreactive); ~Hepatitis C Antibody Nonreactive (Nonreactive)
[2024-07-21 02:19] LABS: LDL Cholesterol Direct 95 mg/dL (<100)
== END 2024-07-19 08:05 | disposition home or self-care (01) ==
LOC: HO.LAB 08:04
PROVIDERS: PCP Physician Assistant Medical; Visit Provider Physician Assistant Medical
DX: R74.8 Abnormal levels of other serum enzymes (principal); E11.21 Type 2 diabetes mellitus with diabetic nephropathy; E11.65 Type 2 diabetes mellitus with hyperglycemia; E78.2 Mixed hyperlipidemia; I10 Essential (primary) hypertension; R00.2 Palpitations; R07.9 Chest pain, unspecified
CPT/HCPCS: 36415; 80053; 80061; 83036; 83721; 86704; 86706; 86709; 86803; 87340; 96127

== ENCOUNTER 2024-07-19 11:32 | Outpatient (AMB) | payer OTHER, SELFPAY ==
--- NOTE | 2024-07-19 11:49 | A.OFFPC_ITS ---
Vital Signs 07/19/24 11:52 Height 5 ft 1.1 in Weight 160 lb BMI 30.1 BP 118/68 Blood Pressure Location Rt brachial Position Sitting Respiration 13 Pulse 99 Pulse Source Pulse Oximeter Pulse Oximetry (%) 98 Oxygen Delivery Method Room Air Intake Visit Reasons: adjust meds Intake Note: follow up to adjust meds Shipping/Receiving Manager Required: No Allergies lisinopril Adverse Reaction (Severe, Verified 07/19/24 11:50) Cough ARTIFICIAL SWEETENERS Allergy (Intermediate, Uncoded 04/23/24 08:52) HIVES, VOMITING Tobacco use date assessed: 07/22/23 Dental Screening Dental Screen Date: 01/20/24 HPI HPI Comments History of Present Illness Details This is a 33-year-old female with a past medical history of type 2 diabetes, microalbuminuria diabetic nephropathy, hepatic steatosis, elevated liver enzymes and eczema presenting for re-evaluation of palpitations. Since our visit she completed labs including negative troponin, BNP and D-dimer. She continues to endorse episodes of palpitations. They have become more frequent. She had an episode on Tuesday and her Apple watch said her heart rate was 150. She felt dizzy and had pain in her chest. It resolved after she sat down. 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 Sinus tachycardia is also seen in 5-10% of patients on this per up-to-date. Blood sugars were well-controlled at a lower dosage, but we increase the dose for obesity. She wants to try to decrease again. She also is interested in stopping spironolactone. She says it was prescribed at an office visit where she had an isolated episodes of elevated blood pressure. She had taken lisinopril, but she developed a cough. Mild microalbuminuria on last labs, but since then diabetes is well-controlled. We reviewed her blood work from today. She also wants to know if she can try stopping baby aspirin which she was put on years ago due to her risk factors for heart disease. She completed her Holter monitor, and the results are pending. She is in the process of scheduling an appointment with Cardiology. Previously documented: Episodes started 4 years ago and are intermittent. She may go multiple days having palpitations every day and then a month without having symptoms. She describes it as feeling vigorous, fast heartbeats. Episodes may last a few seconds or several minutes. They are associated with a feeling of heaviness in her chest and sometimes dizziness and shortness of breath. She denies syncope. She had an EKG done at [facility] yesterday which showed normal sinus rhythm and a heart rate of 99 beats per minute. Her heart rate today is 105. She has been monitoring, and her heart rate has been between 90 and 110. She had another EKG in August of this year which was also normal. She had a negative chest x-ray for symptoms in 08/2023. She had a an essentially normal echocardiogram 09/09/2023, and she had a negative exercise stress test on 09/16/2023. The patient says the episodes happen randomly and are not associated with exertion. She may just be sitting down when she feels them. She stopped drinking alcohol because she noticed that triggered them. She also feels that they occur more frequently during cold weather. She denies coughing, wheezing or history of smoking. ROS: Constitutional: No unexplained weight loss, fever, chills, fatigue or night sweats. Respiratory: No wheezing, cough or sputum production. Cardiovascular: See HPI. Denies lower extremity edema. Neurologic: No syncope, numbness or weakness. Hematologic/Lymphatics: No bleeding or bruising. Denies history of blood clots. Endocrine: No cold or heat intolerance. No polyuria or polydipsia. Psychiatric: No depression or anxiety. No SI/HI. Physical exam: Constitutional: Alert, in no distress. Neck: Supple, Full range of motion. No lymphadenopathy. No palpable thyroid masses. Respiratory: Clear to auscultation. Cardiovascular: S1 S2 regular. No murmurs. No carotid bruits. Chest: Nontender to palpation Gastrointestinal: Abdomen soft, non-tender, non-distended. Normal bowel sounds. No palpable masses. Neurologic: No focal neurological deficits. Extremities: Warm and well perfused. No clubbing, cyanosis or edema. 3+ peripheral pulses bilaterally. Psychiatric: Normal mood and affect [facility] Medical History (Updated 07/19/24 @ 13:20 by YUMIKO Coombs) Controlled type 2 diabetes mellitus Chest heaviness Palpitations Hepatomegaly Hepatic steatosis Elevated liver enzymes Microalbuminuric diabetic nephropathy Uncontrolled type 2 diabetes mellitus with hyperglycemia Chronic allergic rhinitis Eczema Atopic dermatitis Diabetes Hx of type 2 diabetes mellitus History of PCOS Surgical History Hx of section Hx of tubal ligation Family History (Updated 09/09/23 @ 16:44 by ELIZA Pratt) Father Myocardial infarction, Onset Age: 45 CVD (cardiovascular disease) Social History (Updated 01/20/24 @ 15:03 by Sabrina Alejo [employer]SEMBLER) Housing: House Alcohol intake: current Alcohol intake frequency: holidays/special occasions only Patient Tobacco Use Status: Former Tobacco user Cigarette Packs Per Day: 0.5 Years Smoked: 9 e-Cigarette/Vaping Use: Never Used Second Hand Smoke Exposure: No service: No Current occupational status: employed 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 1. Little interest or pleasure in doing things: not at all 2. Feeling down, depressed, or hopeless: not at all 3. Trouble falling or staying asleep, or sleeping too much: not at all 4. Feeling tired or having little energy: not at all 5. Poor appetite or overeating: not at all 6. Feeling bad about yourself - or that you are a failure or have let yourself or your family down: not at all 7. Trouble concentrating on things, such as reading the newspaper or watching television: not at all 8. Moving or speaking so slowly that other people could have noticed. Or the opposite - being so fidgety or restless that you have been moving around a lot more than usual: not at all 9. Thoughts that you would be better off or of hurting yourself in some way: not at all Total score: 0 35515 - PHQ-9 Billing: Yes Source: Developed by Drs. Brad Dao, Wendy Johnson, Noé Escobar and colleagues, with an educational lefty from [employer]. Thrive Questionnaire Date Thrive assessed: 07/19/24 I am a: Patient What is your living situation today?: I have a steady place to live Within the past 12 months, did the food you bought not last and you didn't have the money to get more?: Never true Within the past 12 months, did you worry whether your food would run out before you got money to buy more?: Never true Do you have trouble paying for medicines?: No Do you have trouble getting transportation to medical appointments?: No Do you have trouble paying your heating and electricity bill?: No Do you have trouble taking care of your child, family member or friend?: No Do you have trouble with day-to-day activities such as bathing, preparing meals, shopping, managing finances, etc.?: No Are you currently unemployed and looking for a job?: No Are you interested in more education?: No Please select the resources that you would like help with: None Currently or been in a relationship where the following occur: No concerns reported THRIVE Score: 0 AUDIT C Alcohol Use Questionnaire (AUDIT-C) 1. How often do you have a drink containing alcohol?: Never Total Score: 0 BULL-7 AMB Questionnaire BULL-7 Date BULL - 7 assessed: 07/19/24 Feeling nervous, anxious, or on edge: 0 = Not at all Not being able to stop or control worryin = Not at all Worrying too much about different things: 0 = Not at all Trouble relaxin = Not at all Being so restless that it is hard to sit still: 0 = Not at all Becoming easily annoyed or irritable: 0 = Not at all Feeling afraid as if something awful might happen: 0 = Not at all Total BULL-7 score (0-4 normal; 5-9 mild; 10-14 moderate; 15-21 severe): 0 Source: Developed by Drs. Brad Dao, Wendy Johnson, Noé Escobar and colleagues, with an educational lefty from [employer]. BULL-7 Assessment Billing BULL-7 Assessment Tool: BULL-7 Assessment 99695 Physical exam (Primary Care) Vital Signs: Last Vital Signs Pulse 99 07/19/24 11:52 Resp 13 07/19/24 11:52 BP 118/68 07/19/24 11:52 Pulse Ox 98 07/19/24 11:52 Oxygen Delivery Method Room Air 07/19/24 11:52 BMI result Body Mass Index 30.1 Tobacco/Smoking Status: Tobacco use Status Tobacco use date assessed 07/22/23 07/19/24 11:53 Patient Tobacco Use Status Former Tobacco user 07/19/24 11:53 e-Cigarette/Vaping Use Never Used 07/19/24 11:53 PHQ-9: PHQ-9 Score PHQ-9: Total score 0 07/19/24 12:09 Thrive Assessment: Date of Thrive Assessment Date Thrive assessed 07/19/24 07/19/24 11:53 Currently or been in a relationship where the following occur: No concerns reported Coding Level of Care Code Est Pt Level 4 (13719) Complex EM visit Add On G2211 Diagnoses Controlled type 2 diabetes mellitus E11.9 Hypertension goal BP (blood pressure) < 130/80 I10 Palpitations R00.2 Chest pain R07.9 Additional Codes BULL-7 Assessment Billing - UBLL-7 Assessment Tool: BULL-7 Assessment 83162 ([id number]) PHQ-9 - 85492 - PHQ-9 Billing: Yes ([id number]) Assessment & Plan Assessment & Plan (1) Controlled type 2 diabetes mellitus: Code(s): E11.9 - Type 2 diabetes mellitus without complications Category: Medical (2) Hypertension goal BP (blood pressure) < 130/80: Code(s): I10 - Essential (primary) hypertension Category: Medical (3) Palpitations: Code(s): R00.2 - Palpitations Category: Medical (4) Chest pain: Code(s): R07.9 - Chest pain, unspecified Plan Decrease Mounjaro to 5 mg weekly. Continue metformin extended release 1000 mg twice daily. Trial of stopping spironolactone. Follow up in 2 weeks. We can check urine for microalbumin. If she has continued microalbuminuria or elevated blood pressure we will try losartan instead. She can try stopping baby aspirin which may be contributing if there is GI irritation. Schedule follow up with Cardiology. Holter results are pending. Warning signs warranting ER evaluation reviewed with the patient. Follow up in 2 weeks Medications: New tirzepatide (Mounjaro) 5 mg (0.5 mL) subcut QWEEK 2 mL 5RF famotidine 20 mg PO BID 60 tabs 3RF Discontinued spironolactone Discontinued Reason: Doctor's Order 25 mg PO DAILY 3 months 90 tabs 2RF I10 - Essential (primary) hypertension tirzepatide (Mounjaro) Discontinued Reason: Doctor's Order 7.5 mg (0.5 mL) subcut QWEEK 2 mL 0RF tirzepatide (Mounjaro) Discontinued Reason: Doctor's Order 10 mg (0.5 mL) subcut QWEEK 2 mL 0RF
[2024-07-19 11:52] VITALS: BP 118/68; PULSE 99; RESP 13; O2SAT 98; BMI 30.1
== END 2024-07-19 12:30 | disposition home or self-care (01) ==
PROVIDERS: PCP Physician Assistant Medical; Visit Provider Physician Assistant Medical
DX: E11.9 Type 2 diabetes mellitus without complications (principal); I10 Essential (primary) hypertension; R00.2 Palpitations; R07.9 Chest pain, unspecified

== ENCOUNTER 2024-07-22 13:25 | Emergency (ER) | payer OTHER, SELFPAY ==
--- NOTE | ~2024-07-22 | XR_ITS ---
CLINICAL HISTORY: palpitations 1 view chest x-ray Comparison: CR/SR - XR CHEST 2V - 09/08/23 08:38 EST Findings: No consolidation or effusion. Heart size is normal. No acute fracture. IMPRESSION: 1. No acute findings. This document has been electronically signed by: Ynes Sky DO on 07/22/2024 15:04:09
--- NOTE | 2024-07-22 13:29 | ECG_ITS ---
Test Reason : PALPITATIONS Blood Pressure : / mmHG Vent. Rate : 079 BPM Atrial Rate : 079 BPM P-R Int : 138 ms QRS Dur : 070 ms QT Int : 382 ms P-R-T Axes : 035 014 029 degrees QTc Int : 438 ms Normal sinus rhythm Normal ECG When compared with ECG of 04-SEP-2023 19:22, No significant change was found Referred By: Generic ED Physician Electronically Signed By:WALTER BECERRA
[2024-07-22 14:02] VITALS: BP 136/76; PULSE 91; RESP 18; TEMP 36.9; O2SAT 99; BMI 29.3
--- NOTE | 2024-07-22 14:07 | ED_ITS ---
HPI - General Adult General Chief complaint: Arrhythmia/Palpitations Stated complaint: chest pain Source: patient Mode of arrival: ambulatory Limitations: no limitations History of Present Illness HPI narrative: Patient left before completing treatment by ED provider. Related Data Home Medications ?Medication ?Instructions ?Recorded ?Confirmed esomeprazole magnesium 20 mg 20 mg PO DAILY 07/05/24 capsule,delayed release (Nexium) Previous Rx's ?Medication ?Instructions ?Recorded blood pressure monitor #1 ea 05/26/22 metformin 500 mg tablet,extended 1,000 mg (2 x 500 mg) PO DAILY 30 07/22/23 release 24 hr days #60 tabs ipratropium bromide 42 mcg (0.06 2 spray intranasal QID 30 days #15 10/28/23 %) nasal spray mL atorvastatin 20 mg tablet 20 mg PO BEDTIME #90 tabs 04/23/24 blood-glucose meter,continuous #1 ea 04/23/24 (Dexcom G7 Leadite Man) blood-glucose sensor (Dexcom G7 #3 ea 04/23/24 Sensor device) insulin glargine 100 unit/mL (3 5 unit (0.05 mL) subcut .qhs #15 mL 05/04/24 mL) subcutaneous pen (Lantus Solostar U-100 Insulin) pen needle, diabetic 32 gauge x #100 ea 05/04/24 5/32 (BD Lorelei 2nd Gen Pen Needle) blood sugar diagnostic (Contour #200 ea 05/08/24 Test Strips) blood-glucose meter (Contour Meter #1 ea 05/08/24 kit) lancets (Microlet Lancet) #200 ea 05/08/24 ondansetron HCl 4 mg tablet 4 mg PO Q8H PRN nausea and 06/28/24 vomiting #20 tabs famotidine 20 mg tablet 20 mg PO BID #60 tabs 07/19/24 tirzepatide 5 mg/0.5 mL 5 mg (0.5 mL) subcut QWEEK #2 mL 07/19/24 subcutaneous pen injector (Kana) metoprolol succinate 25 mg 25 mg PO DAILY #90 tabs 07/23/24 tablet,extended release 24 hr Allergies Allergy/AdvReac Type Severity Reaction Status Date / Time lisinopril AdvReac Severe Cough Verified 07/22/24 14:03 ARTIFICIAL SWEETENERS Allergy Intermediate HIVES, Uncoded 04/23/24 08:52 VOMITING [facility] Past Medical History Medical History (Updated 07/23/24 @ 11:52 by YUMIKO Mccarthy) Controlled type 2 diabetes mellitus Chest heaviness Palpitations Hepatomegaly Hepatic steatosis Elevated liver enzymes Microalbuminuric diabetic nephropathy Uncontrolled type 2 diabetes mellitus with hyperglycemia Chronic allergic rhinitis Eczema Atopic dermatitis Diabetes Hx of type 2 diabetes mellitus History of PCOS Surgical History Hx of section Hx of tubal ligation Family History Family History (Updated 09/09/23 @ 16:44 by ELIZA Pratt) Father Myocardial infarction, Onset Age: 45 CVD (cardiovascular disease) Social History Social History (Updated 01/20/24 @ 15:03 by Sabrina Alejo CMA) Housing: House Alcohol intake: current Alcohol intake frequency: holidays/special occasions only Patient Tobacco Use Status: Former Tobacco user Cigarette Packs Per Day: 0.5 Years Smoked: 9 e-Cigarette/Vaping Use: Never Used Second Hand Smoke Exposure: No Advance Directives: No Advance Directives Information Provided: Yes service: No Current occupational status: employed 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 [employer] Current occupational exposures/hazards: No Sexual orientation: Straight/Heterosexual Gender identity: Female Cognitive needs: No Hearing needs: No Vision needs: No Physical Exam ED Vital Signs: Vital Signs - 24 hr 07/22/24 14:02 Temperature 98.5 F Pulse Rate 91 Respiratory Rate 18 Blood Pressure 136/76 Pulse Oximetry 99 Oxygen Delivery Method Room Air BMI result Body Mass Index 29.3 Course Course Course Narrative: RME: 33-year-old female with history of tachycardia or palpitation 4 months with a recent Holter amounts of waiting for results presents to ED for another palpitation exacerbation. Patient has referral for Cardiology but has not made appointment. Patient denies any shortness of breath or recent long travel recent surgery. Patient had recent lab work with negative troponin D-dimer. Repeat labs x-ray ordered. Medical Decision Making Lab Data 07/22/24 14:46 07/22/24 14:46 Labs: Lab Results 07/22/24 Range/Units 14:46 WBC 7.6 (4.8-10.8) X10*3/uL RBC 4.36 (4.20-5.50) X10*6/uL Hgb 12.9 (12.0-16.0) g/dl Hct 37.9 (37.0-47.0) % MCV 86.9 (80.0-98.0) fL MCH 29.6 (27.0-33.0) pg MCHC 34.0 (31.0-35.0) g/dl RDW 13.0 (11.0-16.0) % Plt Count 259 (160-400) X10*3/uL MPV 10.0 (9.4-12.3) fL Immature Gran % (Auto) 0.4 (0.0-0.4) % Neut % (Auto) 61.1 (45-73) % Lymph % (Auto) 32.2 (20-40) % Teller % (Auto) 5.1 (2-11) % Eos % (Auto) 0.8 (0-4) % Baso % (Auto) 0.4 (0-2) % Lymph # (Auto) 2.5 (1.2-4.9) X10*3/uL Teller # (Auto) 0.4 (0.1-1.2) X10*3/uL Eos # (Auto) 0.1 (0.0-0.4) X10*3/uL Baso # (Auto) 0.0 (0.0-0.2) X10*3/uL Abs Immat Gran (auto) 0.03 (0.00-0.03) X10*3/uL Absolute Neuts (auto) 4.7 (2.0-8.3) x10*3/uL Absolute Nucleated RBC 0.000 (0.0-0.012) X10*3/uL Nucleated RBC % (auto) 0.0 (0.0-0.2) /100WBC PT 12.0 (10.9-12.4) SEC INR 1.0 (0.9-1.1) APTT 35.1 (26.0-36.8) SEC Sodium 142 (135-145) mmol/L Potassium 3.9 (3.3-5.1) mmol/L Chloride 109 H (96-108) mmol/L Carbon Dioxide 26 (22-29) mmol/L Anion Gap 11 L (12-20) BUN 7 L (9-16) mg/dL Creatinine 0.72 (0.5-1.4) mg/dL Estim Creat Clear Calc 100.6 Estimated GFR > 60 Random Glucose 153 H (60-115) mg/dL Calcium 9.7 D (8.4-10.2) mg/dL Total Bilirubin 0.3 (0.0-1.0) mg/dL AST 21 (5-31) U/L ALT 38 H (0-31) U/L Alkaline Phosphatase 73 (39-117) U/L Troponin I High Sens < 2.7 (<3.5-17.0) ng/L B-Natriuretic Peptide 25 (<100) pg/mL Total Protein 7.3 (6.5-8.0) g/dL Albumin 4.3 (3.5-5.0) g/dL TSH 0.91 (0.32-4.0) uIU/mL Influenza Type A (PCR) NEGATIVE (Negative) Influenza Type B (PCR) NEGATIVE (Negative) RSV RNA Qual (PCR) NEGATIVE (Negative) SARS-CoV-2 RNA (RT-PCR) NEGATIVE (Negative) Discharge Plan Discharge Clinical Impression: Palpitations Patient Disposition: Left W/O Completing Treatment Prescriptions: No Action ipratropium bromide 42 mcg (0.06 %) spray,non-aerosol 2 spray intranasal QID 30 Days Qty: 15 3RF Rx Instructions: administer into each nostril insulin glargine [Lantus Solostar U-100 Insulin] 100 unit/mL (3 mL) insulin pen 5 unit subcut .qhs Qty: 15 3RF (DME) pen needle, diabetic [BD Lorelei 2nd Gen Pen Needle] 32 gauge x 5/32 needle See Rx Instructions .ROUTE .MEDSUPPLY Qty: 100 3RF Rx Instructions: Use to inject insulin once daily (DME) lancets [Microlet Lancet] Misc See Rx Instructions .Route Qty: 200 5RF Rx Instructions: Use to check blood glucose five times daily. (DME) blood-glucose meter [Contour Meter] Kit See Rx Instructions .Route Qty: 1 0RF Rx Instructions: Use as directed to check blood glucose 5 times daily. (DME) Contour Test Strips Strip See Rx Instructions .Route Qty: 200 5RF Rx Instructions: Use as directed to check blood glucose 5 times daily. ondansetron HCl 4 mg tablet 4 mg PO Q8H PRN (Reason: nausea and vomiting) Qty: 20 0RF metoprolol succinate 25 mg tablet extended release 24 hr 25 mg PO DAILY Qty: 90 0RF metformin 500 mg tablet extended release 24 hr 1,000 mg PO DAILY 30 Days Qty: 60 3RF (DME) blood pressure monitor Kit See Rx Instructions .Route Qty: 1 0RF Rx Instructions: As directed Mounjaro 5 mg/0.5 mL pen injector 5 mg subcut QWEEK Qty: 2 5RF famotidine 20 mg tablet 20 mg PO BID Qty: 60 3RF atorvastatin 20 mg tablet 20 mg PO BEDTIME Qty: 90 3RF (DME) Dexcom G7 Sensor Device See Rx Instructions .ROUTE .MEDSUPPLY Qty: 3 11RF Rx Instructions: apply new sensor every 10 days as directed (DME) Dexcom G7 Leadite Man Misc See Rx Instructions .ROUTE .MEDSUPPLY Qty: 1 0RF Rx Instructions: As directed esomeprazole magnesium [Nexium] 20 mg capsule,delayed release(DR/EC) 20 mg PO DAILY Discharge Date/Time: 07/22/24 17:53
[2024-07-22 14:51] LABS: MANUAL DIFF FLAG NO
[2024-07-22 14:55] LABS: Basophils Percent Auto 0.4 % (0-2); Eosinophils Absolute Auto 0.1 X10*3/uL (0.0-0.4); Eosinophils Percent Auto 0.8 % (0-4); Hematocrit 37.9 % (37.0-47.0); Hemoglobin 12.9 g/dl (12.0-16.0); Imm Gran Abs Auto 0.03 X10*3/uL (0.00-0.03); Imm Gran Pct Auto 0.4 % (0.0-0.4); Lymphocytes Absolute Auto 2.5 X10*3/uL (1.2-4.9); Lymphocytes Percent Auto 32.2 % (20-40); Mean Corpuscular Hemoglobin 29.6 pg (27.0-33.0); Mean Corpuscular Volume 86.9 fL (80.0-98.0); Monocytes Absolute Auto 0.4 X10*3/uL (0.1-1.2); Monocytes Percent Auto 5.1 % (2-11); Neutrophils Absolute Auto 4.7 x10*3/uL (2.0-8.3); Neutrophils Percent Auto 61.1 % (45-73); Platelet Count 259 X10*3/uL (160-400); Red Blood Count 4.36 X10*6/uL (4.20-5.50); White Blood Count 7.6 X10*3/uL (4.8-10.8)
[2024-07-22 15:01] LABS: Partial Thromboplastin Time 35.1 SEC (26.0-36.8)
[2024-07-22 15:17] LABS: B Type Natriuretic Peptide 25 pg/mL (<100)
[2024-07-22 15:23] LABS: Alanine Aminotransferase 38 U/L (0-31); Albumin Level 4.3 g/dL (3.5-5.0); Anion Gap 11 (12-20); Aspartate Amino Transferase 21 U/L (5-31); Bilirubin Total 0.3 mg/dL (0.0-1.0); Blood Urea Nitrogen 7 mg/dL (9-16); Calcium 9.7 mg/dL (8.4-10.2); Carbon Dioxide 26 mmol/L (22-29); Chloride 109 mmol/L (96-108); Creatinine Clr Calc Pharmacy 100.6; Estimated Glomerular Filt Rate > 60; Glucose Random 153 mg/dL (60-115); Potassium 3.9 mmol/L (3.3-5.1); Sodium 142 mmol/L (135-145); Total Protein 7.3 g/dL (6.5-8.0); Troponin-I High Sensitivity < 2.7 ng/L (<3.5-17.0)
[2024-07-22 15:35] LABS: Influenza A PCR NEGATIVE (Negative); Influenza B PCR NEGATIVE (Negative); Resp Syncy Virus RNA Qual PCR NEGATIVE (Negative); SARS COV2 PCR INHOUSE NEGATIVE (Negative)
[2024-07-22 15:37] LABS: TSH reflex Free T4 0.91 uIU/mL (0.32-4.0)
[2024-07-22 16:18] LABS: Alkaline Phosphatase 73 U/L (39-117)
== END 2024-07-22 17:53 | disposition left against medical advice (07) ==
PROVIDERS: Physician Assistant; Emergency Provider Emergency Medicine Emergency Medical Services; PCP Physician Assistant Medical
DX: I49.9 Cardiac arrhythmia, unspecified (principal); R00.2 Palpitations; R07.89 Other chest pain; R06.02 Shortness of breath; Z79.899 Other long term (current) drug therapy; Z03.818 Encounter for observation for suspected exposure to other biological agents ruled out; Z87.891 Personal history of nicotine dependence
CPT/HCPCS: 0241U; 71045; 80053; 83880; 84443; 84484; 85025; 85610; 85730; 93005; 99283

== ENCOUNTER → 2024-07-22 13:29 | Outpatient (BNV) | payer OTHER, SELFPAY | PROVIDERS: Emergency Provider Emergency Medicine Emergency Medical Services; PCP Physician Assistant Medical; Visit Provider Internal Medicine | DX: R00.2 Palpitations (principal) | CPT/HCPCS: 93010 ==

== ENCOUNTER → 2024-07-22 14:04 | Outpatient (BNV) | payer OTHER, SELFPAY | PROVIDERS: PCP Physician Assistant Medical; Visit Provider Radiology Diagnostic Radiology | DX: R07.9 Chest pain, unspecified (principal) | CPT/HCPCS: 71045 ==

== ENCOUNTER 2024-08-01 10:31 | Outpatient (AMB) | payer OTHER, SELFPAY ==
[2024-08-01 10:38] VITALS: BP 134/62; PULSE 78; BMI 29.5
--- NOTE | 2024-08-01 10:38 | A.OFFVIS_ITS ---
Vital Signs 08/01/24 10:38 Height 5 ft 1 in Weight 156 lb 1.396 oz BMI 29.5 BP 134/62 Blood Pressure Location Rt brachial Position Sitting Pulse 78 Pulse Source Monitor Intake Visit Reasons: ROOMS DIRECTOR/ Sylvie connelly/ hossein on and off Traffic Officer Required: No Accompanied by: Self / Same As Patient Allergies lisinopril Adverse Reaction (Severe, Verified 07/22/24 14:03) Cough ARTIFICIAL SWEETENERS Allergy (Intermediate, Uncoded 04/23/24 08:52) HIVES, VOMITING Medication List - Last Reconciled 08/01/24 by Bonifacio Prado MD atorvastatin 20 mg PO BEDTIME blood pressure monitor As directed blood sugar diagnostic (Contour Test Strips) Use as directed to check blood glucose 5 times daily. blood-glucose meter (Contour Meter kit) Use as directed to check blood glucose 5 times daily. blood-glucose meter,continuous ([employer] G7 Desktop Publishing Operator) As directed blood-glucose sensor (Dex[employer] G7 Sensor device) apply new sensor every 10 days as directed famotidine 20 mg PO BID insulin glargine (Lantus Solostar U-100 Insulin) 5 units (0.05 mL) subcut .qhs ipratropium bromide 2 sprays intranasal QID 30 days lancets (Microlet Lancet) Use to check blood glucose five times daily. metformin ER 1,000 mg (2 x 500 mg) PO DAILY 30 days metoprolol succinate ER 50 mg PO DAILY ondansetron HCl 4 mg PO Q8H PRN pen needle, diabetic (BD Lorelei 2nd Gen Pen Needle) Use to inject insulin once daily tirzepatide (Mounjaro) 5 mg (0.5 mL) subcut QWEEK HPI Comments Details: Pleasant 33 year female who is here for chest discomfort and palpitations. She has been a diabetic for last 12 years. She is currently taking GLP 1 inhibitor. She has experienced palpitations in the past. Approximately a year ago she had palpitations in the setting of viral illness during winter time. She said this was self-limiting. In between she had some episodes where her heart rate would go up to 140s but she noticed that it would happen while drinking alcohol and she has stopped drinking. She said she would bear down and try to slow her heart in those circumstances. She had another viral illness during current winter season and had tachycardia after that. She said her heart rates were as fast as 140s to 150s by her watch. She previously had stress testing done because she was experiencing chest discomfort. She continues to get some chest discomfort off and on. She is concerned about left-sided chest discomfort that happens at rest and she feels she has no energy and to others she appears pale. This is not a consistent exertional symptoms but can happen randomly. She is not sure whether GLP 1 inhibitors have any linked with this and she has been off G LP 1 4 few weeks because it dose was decreased and she is still waiting for new prescription. She was started on metoprolol succinate by her primary care physician and since then her palpitations and tachycardia has improved. She also started hydrating herself better when she started taking metoprolol and this combination has worked well for her. She does not take significant caffeine and does not drink any energy drinks. No chocolate intake due to diabetes. [facility] Medical History (Updated 07/27/24 @ 10:50 by YUMIKO Coombs) Chest pain Controlled type 2 diabetes mellitus Chest heaviness Palpitations Hepatomegaly Hepatic steatosis Elevated liver enzymes Microalbuminuric diabetic nephropathy Uncontrolled type 2 diabetes mellitus with hyperglycemia Chronic allergic rhinitis Eczema Atopic dermatitis Diabetes Hx of type 2 diabetes mellitus History of PCOS Surgical History Hx of section Hx of tubal ligation Family History Father Myocardial infarction, Onset Age: 45 CVD (cardiovascular disease) Social History (Updated 08/01/24 @ 10:40 by Nehal Iqbal CMA) Housing: House Alcohol intake: never Patient Tobacco Use Status: Former Tobacco user Cigarette Packs Per Day: 0.5 Years Smoked: 9 e-Cigarette/Vaping Use: Never Used Second Hand Smoke Exposure: No service: No Current occupational status: employed 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 Current occupational exposures/hazards: No Sexual orientation: Straight/Heterosexual Gender identity: Female Cognitive needs: No Hearing needs: No Vision needs: No Review of Systems Const Denies chills, Denies fatigue, Denies fever(s), Denies frequent falls, Reports weakness, Denies weight gain and Denies weight loss ENT Denies dizziness Card Reports chest pain, Reports chest pain at rest, Reports chest pain with activity, Denies leg edema, Denies lightheadedness, Denies palpitations, Reports dyspnea, Reports dyspnea on exertion and Reports orthopnea Resp Denies cough, Reports dyspnea and Reports dyspnea on exertion GI Denies bloating and Denies change in bowel habits Musc Denies muscle weakness, Denies numbness and Denies tingling Neuro Denies dizziness, Denies frequent falls, Denies numbness, Denies tingling and Reports weakness Endo Denies fatigue and Denies palpitations Physical Exam Vital Signs: Last Vital Signs Pulse 78 08/01/24 10:38 BP 134/62 08/01/24 10:38 BMI result Body Mass Index 29.5 GENERAL APPEARANCE: in no acute distress, pleasant. NECK: no carotid bruit, no jugular venous distention. SKIN: no suspicious lesions, warm and dry. HEART: no murmurs, regular rate and rhythm. LUNGS: clear to auscultation bilaterally. ABDOMEN: soft, nontender. EXTREMITIES: no edema. PERIPHERAL PULSES: equal. NEUROLOGIC: No gross deficits, AAO X 3 Office Procedures EKG Details: Normal sinus rhythm 78 beats per minute, normal ECG, QTC 453 milliseconds. [id number], Complete Assessment & Plan Assessment & Plan (1) Chest pain: Code(s): R07.9 - Chest pain, unspecified Category: Medical (2) Palpitations: Code(s): R00.2 - Palpitations Category: Medical Plan Pleasant 33-year-old lady who is here for assessment of chest discomfort and palpitations. Palpitations has been happening off and on and 2 major episodes happen after viral illnesses. I have reassured her that it is quite common to develop fast heart rates during viral illnesses. She has been hydrating and using Toprol-XL and overall she has been feeling better. Unclear what dose palpitations were due to and after discussion we have decided to do a 30 day monitor to rule out any significant arrhythmia. In terms of her chest discomfort she previously did stress testing which did not show any ischemic changes. She has random pains and becomes pale. She also had episodes where she passed out during her teenage years but difficult to say whether that was related to diabetes or not. In any case we decided to do an anatomic study of any arteries and we will arrange a coronary CTA. This will also rule out any anomalous origin of coronary arteries which can be missed by stress testing. I will do some basic blood workup before the coronary CTA. I think we should check thyroid profile and also an iron profile to make sure she is not anemic because anemia can also give very similar symptoms at times. She will see us back in few months. Thank you for allowing me to participate in the care of your patient. Please feel free to contact me if you have any questions. Orders: Orders CT Cardiac Coronary Angio Today Bonifacio Prado MD R07.9 - Chest pain, unspecified Basic Metabolic Panel Today Bonifacio Prado MD R07.9 - Chest pain, unspecified TSH reflex Free T4 Today Bonifacio Prado MD R07.9 - Chest pain, unspecified IRON PROFILE Today Bonifacio Prado MD R07.9 - Chest pain, unspecified ECG 30 day event monitor Today Bonifacio Prado MD R00.2 - Palpitations Medications: Changed From metoprolol succinate ER 25 mg PO DAILY 90 tabs 0RF To metoprolol succinate ER 50 mg PO DAILY YUMIKO Coombs Coding Level of Care Code New Pt Level 5 (04254) Diagnoses Chest pain R07.9 Palpitations R00.2 CPT Codes EKG - CPT: 54373-[id number], Complete ([id number])
== END 2024-08-01 12:51 | disposition home or self-care (01) ==
PROVIDERS: PCP Physician Assistant Medical; Visit Provider Internal Medicine Cardiovascular Disease
DX: R07.9 Chest pain, unspecified (principal); R00.2 Palpitations
CPT/HCPCS: 93010; 99204

== ENCOUNTER → 2024-08-01 10:31 | Outpatient (BNVA) | payer OTHER, SELFPAY | PROVIDERS: PCP Physician Assistant Medical; Visit Provider Internal Medicine Cardiovascular Disease | DX: R07.89 Other chest pain (principal); R00.2 Palpitations | CPT/HCPCS: 93005 ==

== ENCOUNTER → 2024-08-06 08:28 | Outpatient (REF) | payer OTHER, SELFPAY | LOC: HO.CARD 08:28 | PROVIDERS: PCP Physician Assistant Medical; Visit Provider Internal Medicine Cardiovascular Disease | DX: R00.2 Palpitations (principal) | CPT/HCPCS: 93270 ==

== ENCOUNTER → 2024-08-06 08:30 | Outpatient (BNV) | payer OTHER, SELFPAY | PROVIDERS: PCP Physician Assistant Medical; Visit Provider Internal Medicine | DX: I49.3 Ventricular premature depolarization (principal) | CPT/HCPCS: 93272 ==

== ENCOUNTER 2024-08-13 09:44 | Outpatient (AMB) | payer OTHER, SELFPAY ==
--- NOTE | 2024-08-13 10:02 | A.OFFPC_ITS ---
Vital Signs 08/13/24 10:06 Height 5 ft 1 in Weight 159 lb 4 oz BMI 30.1 BP 104/70 Blood Pressure Location Rt brachial Position Sitting Respiration 14 Pulse 92 Pulse Source Pulse Oximeter Temp 98.8 F Temp Source Oral Pulse Oximetry (%) 98 Oxygen Delivery Method Room Air Intake Visit Reasons: Diabetes follow up. Intake Note: diabeties f/u Allergies lisinopril Adverse Reaction (Severe, Verified 08/13/24 10:03) Cough ARTIFICIAL SWEETENERS Allergy (Intermediate, Uncoded 04/23/24 08:52) HIVES, VOMITING Tobacco use date assessed: 07/22/23 Dental Screening Dental Screen Date: 01/20/24 HPI HPI Comments History of Present Illness Details This is a 33-year-old female with a past medical history of type 2 diabetes, microalbuminuria diabetic nephropathy, hepatic steatosis, elevated liver enzymes and eczema presenting for re-evaluation of palpitations and chest pain. Since our last visit she started metoprolol succinate 25 mg, and we increased it to 50 mg. She was still symptomatic on the lower dosage, but now she is feeling much better. She is only experiencing tachycardia in the morning when she gets up and goes downstairs. She has not had further near syncopal episodes. She saw Cardiology, and she has a 30 day cardiac event monitor on right now. She is also going to have a coronary CTA at [facility]. She discontinued Mounjaro 10 mg since this medication can cause tachycardia, and the intention was to start 5 mg again since her blood sugars were well- controlled on this dose, but the pharmacy has not been able to dispense it. I contacted the pharmacy, and I am waiting for a message back from them today. She is back on Lantus 20 units. Her sensor fell off, and she is picking up another 1 today. Her A1c today is 6.2%. She reports postprandial glucose is up to 200. Off insulin she was having blood sugars as high as 350. She remains off spironolactone and baby aspirin. She is still taking famotidine. She would like to have additional lab work done to check hormones in light of palpitations. She has a history of PCOS. She does not feel anxious, but she does leave room for the idea that anxiety can manifest as a physical symptom sometimes when you do not feel anxious. ROS: Constitutional: No unexplained weight loss, fever, chills, fatigue or night sweats. Respiratory: No wheezing, cough or sputum production. Cardiovascular: See HPI. Denies lower extremity edema. Neurologic: No syncope, numbness or weakness. Hematologic/Lymphatics: No bleeding or bruising. Denies history of blood clots. Endocrine: No cold or heat intolerance. No polyuria or polydipsia. Psychiatric: No depression or anxiety. No SI/HI. Physical exam: Constitutional: Alert, in no distress. Neck: Supple, Full range of motion. No lymphadenopathy. No palpable thyroid masses. Respiratory: Clear to auscultation. Cardiovascular: S1 S2 regular. No murmurs. No carotid bruits. Neurologic: No focal neurological deficits. Extremities: Warm and well perfused. No clubbing, cyanosis or edema. 3+ peripheral pulses bilaterally. Psychiatric: Normal mood and affect [facility] Medical History (Updated 07/27/24 @ 10:50 by YUMIKO Coombs) Chest pain Controlled type 2 diabetes mellitus Chest heaviness Palpitations Hepatomegaly Hepatic steatosis Elevated liver enzymes Microalbuminuric diabetic nephropathy Uncontrolled type 2 diabetes mellitus with hyperglycemia Chronic allergic rhinitis Eczema Atopic dermatitis Diabetes Hx of type 2 diabetes mellitus History of PCOS Surgical History Hx of section Hx of tubal ligation Family History Father Myocardial infarction, Onset Age: 45 CVD (cardiovascular disease) Social History (Updated 08/01/24 @ 10:40 by Nehal Iqbal CMA) Housing: House Alcohol intake: never Patient Tobacco Use Status: Former Tobacco user Cigarette Packs Per Day: 0.5 Years Smoked: 9 e-Cigarette/Vaping Use: Never Used Second Hand Smoke Exposure: No service: No Current occupational status: employed 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 Current occupational exposures/hazards: No Sexual orientation: Straight/Heterosexual Gender identity: Female Cognitive needs: No Hearing needs: No Vision needs: No Questionnaire Thrive Questionnaire Date Thrive assessed: 07/19/24 I am a: Patient What is your living situation today?: I have a steady place to live Within the past 12 months, did the food you bought not last and you didn't have the money to get more?: Never true Within the past 12 months, did you worry whether your food would run out before you got money to buy more?: Never true Do you have trouble paying for medicines?: No Do you have trouble getting transportation to medical appointments?: No Do you have trouble paying your heating and electricity bill?: No Do you have trouble taking care of your child, family member or friend?: No Do you have trouble with day-to-day activities such as bathing, preparing meals, shopping, managing finances, etc.?: No Are you currently unemployed and looking for a job?: No Are you interested in more education?: No Please select the resources that you would like help with: None Currently or been in a relationship where the following occur: No concerns reported THRIVE Score: 0 BULL-7 AMB Questionnaire BULL-7 Date BULL - 7 assessed: 07/19/24 Source: Developed by Drs. Brad Dao, Wendy Johnson, Noé Escobar and colleagues, with an educational lefty from [employer]. Physical exam (Primary Care) Vital Signs: Last Vital Signs Temp 98.8 F 08/13/24 10:06 Pulse 92 08/13/24 10:06 Resp 14 08/13/24 10:06 BP 104/70 08/13/24 10:06 Pulse Ox 98 08/13/24 10:06 Oxygen Delivery Method Room Air 08/13/24 10:06 BMI result Body Mass Index 30.1 Tobacco/Smoking Status: Tobacco use Status Tobacco use date assessed 07/22/23 08/13/24 10:08 Patient Tobacco Use Status Former Tobacco user 08/13/24 10:08 e-Cigarette/Vaping Use Never Used 08/13/24 10:08 Thrive Assessment: Date of Thrive Assessment Date Thrive assessed 07/19/24 08/13/24 10:08 Currently or been in a relationship where the following occur: No concerns reported Coding Level of Care Code Est Pt Level 4 (23868) Complex EM visit Add On G2211 Diagnoses Controlled type 2 diabetes mellitus E11.9 Hypertension goal BP (blood pressure) < 130/80 I10 Palpitations R00.2 Chest pain R07.9 Assessment & Plan Assessment & Plan (1) Controlled type 2 diabetes mellitus: Code(s): E11.9 - Type 2 diabetes mellitus without complications Category: Medical (2) Hypertension goal BP (blood pressure) < 130/80: Code(s): I10 - Essential (primary) hypertension Category: Medical (3) Palpitations: Code(s): R00.2 - Palpitations Category: Medical (4) Chest pain: Code(s): R07.9 - Chest pain, unspecified Plan In summary this is a 33-year-old female with controlled type 2 diabetes who has been evaluated for chest pain and palpitations. She reports significant improvement in symptoms since starting the higher dose of metoprolol. She will continue it. Her palpitations have resolved without intervention in the past. She still has some palpitations in the morning, but she declined dose increase. We discussed if palpitations and chest pain subsided again , and she remains asymptomatic for 4 weeks then we could try to decrease her dose of metoprolol and eventually taper off of it. Continue Lantus 20 units daily for now. Continue metformin extended release 1000 mg twice daily. I am waiting on a message back from the pharmacy about starting Mounjaro 5 mg weekly again. She felt better on Mounjaro and her glucose levels were much better controlled. Continue famotidine for now. Avoid spicy and acidic foods. Additional labs will be done today. She will follow up with Cardiology in October as planned. She has a 30 day event monitor and a coronary CTA pending. Warning signs warranting ER evaluation reviewed with the patient. Follow up in 3 months. Orders: Orders Estrogen Today E11.9 - Type 2 diabetes mellitus without complications, E28.2 - Polycystic ovarian syndrome, K76.0 - Fatty (change of) liver, not elsewhere classified, R00.2 - Palpitations, R07.9 - Chest pain, unspecified, R53.83 - Other fatigue, R74.8 - Abnormal levels of other serum enzymes Testosterone, Free/Total Today E11.9 - Type 2 diabetes mellitus without com plications, E28.2 - Polycystic ovarian syndrome, K76.0 - Fatty (change of) liver, not elsewhere classified, R00.2 - Palpitations, R07.9 - Chest pain, unspecified, R53.83 - Other fatigue, R74.8 - Abnormal levels of other serum enzymes Zinc Today E11.9 - Type 2 diabetes mellitus without complications, E28.2 - Polycystic ovarian syndrome, K76.0 - Fatty (change of) liver, not elsewhere classified, R00.2 - Palpitations, R07.9 - Chest pain, unspecified, R53.83 - Other fatigue, R74.8 - Abnormal levels of other serum enzymes Cortisol Random Today E11.9 - Type 2 diabetes mellitus without complications, E28.2 - Polycystic ovarian syndrome, K76.0 - Fatty (change of) liver, not elsewhere classified, R00.2 - Palpitations, R07.9 - Chest pain, unspecified, R53.83 - Other fatigue, R74.8 - Abnormal levels of other serum enzymes Follicle Stimulating Hormone Today E11.9 - Type 2 diabetes mellitus without complications, E28.2 - Polycystic ovarian syndrome, K76.0 - Fatty (change of) liver, not elsewhere classified, R00.2 - Palpitations, R07.9 - Chest pain, unspecified, R53.83 - Other fatigue, R74.8 - Abnormal levels of other serum enzymes Vitamin B12 and Folate Today E11.9 - Type 2 diabetes mellitus without complications, E28.2 - Polycystic ovarian syndrome, K76.0 - Fatty (change of) liver, not elsewhere classified, R00.2 - Palpitations, R07.9 - Chest pain, unspecified, R53.83 - Other fatigue, R74.8 - Abnormal levels of other serum enzymes Vitamin D 1,25 dihydroxy Today E11.9 - Type 2 diabetes mellitus without complications, E28.2 - Polycystic ovarian syndrome, K76.0 - Fatty (change of) liver, not elsewhere classified, R00.2 - Palpitations, R07.9 - Chest pain, unspecified, R53.83 - Other fatigue, R74.8 - Abnormal levels of other serum enzymes Medications: New metoprolol succinate ER 50 mg (2 x 25 mg) PO DAILY 180 tabs 0RF
[2024-08-13 10:06] VITALS: BP 104/70; PULSE 92; RESP 14; TEMP 37.1; O2SAT 98; BMI 30.1
== END 2024-08-13 10:32 | disposition home or self-care (01) ==
PROVIDERS: PCP Physician Assistant Medical; Visit Provider Physician Assistant Medical
DX: E11.9 Type 2 diabetes mellitus without complications (principal); I10 Essential (primary) hypertension; R00.2 Palpitations; R07.9 Chest pain, unspecified

== ENCOUNTER 2024-08-13 09:44 | Outpatient (REF) | payer OTHER, SELFPAY ==
[2024-08-13 16:01] LABS: Anion Gap 13 (12-20); Blood Urea Nitrogen 15 mg/dL (9-16); Calcium 9.3 mg/dL (8.4-10.2); Carbon Dioxide 21 mmol/L (22-29); Chloride 107 mmol/L (96-108); Estimated Glomerular Filt Rate > 60; Glucose Random 181 mg/dL (60-115); Iron 58 mcg/dL (30-160); Percent Iron Saturation 23 % (15-50); Potassium 3.8 mmol/L (3.3-5.1); Sodium 137 mmol/L (135-145); Total Iron Binding Capacity 252 mcg/dL (228-428); Unsaturated Iron Binding 194 ug/dL
[2024-08-13 16:12] LABS: Cortisol Random 3.4 ug/dL
[2024-08-13 16:16] LABS: TSH reflex Free T4 0.86 uIU/mL (0.32-4.0)
[2024-08-13 16:27] LABS: Folate 8.5 ng/mL (> or = 4.0); Vitamin B12 460 pg/mL (200-900)
[2024-08-15 21:04] LABS: Zinc 62 mcg/dL (60-130)
[2024-08-17 01:58] LABS: Estrogen 367 pg/mL
[2024-08-17 16:33] LABS: Testosterone, Free 2.5 pg/mL (0.1-6.4); Testosterone, Total 21 ng/dL (2-45); VITAMIN D (1,25 OH) D3 40 pg/mL; Vit D (1,25-Dihydroxy) Total 40 pg/mL (18-72); Vitamin D (1,25 OH) D2 <8 pg/mL
== END 2024-08-13 09:45 | disposition home or self-care (01) ==
LOC: HO.LAB 09:44
PROVIDERS: Internal Medicine Cardiovascular Disease; PCP Physician Assistant Medical; Visit Provider Physician Assistant Medical
DX: E11.9 Type 2 diabetes mellitus without complications (principal); K76.0 Fatty (change of) liver, not elsewhere classified; R74.8 Abnormal levels of other serum enzymes; R00.2 Palpitations; R07.9 Chest pain, unspecified; R53.83 Other fatigue; E28.2 Polycystic ovarian syndrome; Z79.899 Other long term (current) drug therapy
CPT/HCPCS: 36415; 80048; 82533; 82607; 82652; 82672; 82746; 83001; 83036; 83540; 84402; 84403; 84443; 84630

== ENCOUNTER 2024-09-10 08:40 | Outpatient (AMB) | payer OTHER, SELFPAY ==
--- NOTE | 2024-09-10 08:27 | A.OFFVIS_ITS ---
Intake Visit Reasons: Review medication Allergies lisinopril Adverse Reaction (Severe, Verified 09/10/24 08:39) Cough ARTIFICIAL SWEETENERS Allergy (Intermediate, Uncoded 09/10/24 08:39) HIVES, VOMITING HPI Comments Details: This is a 33-year-old female with a past medical history of type 2 diabetes, microalbuminuria diabetic nephropathy, palpitations, hepatic steatosis, elevated liver enzymes and eczema presenting to discuss diabetes medication. The patient is currently taking 10 units of Lantus, metformin 1000 mg b.i.d.. She took a dose of Trulicity because of an insurance issue getting Mounjaro. She developed increased heart rate after the dose of Trulicity. She message me on the portal. I instructed her to increase metoprolol to 75 mg a day. She did this for a few days and started to feel better so she decrease back down to 50 mg. It has been a little over a week since the dose of Trulicity. Patient says that she is not sure she wants to go back on Mounjaro like we originally planned of the lower dosage because of the issue she has had with these medications. Fasting sugars are 180-200 Postprandially 200-250 She was treated with Glipizide in the past. It was stopped when she started Trulicity. She is not sure it made that much of a difference treating her blood sugar. She is prone to yeast infections so she has concerns about starting SGLT2. She tried a sample of Januvia a long time ago. She does not remember if it h elped. Patient is seeing Cardiology for chest pain and palpitations. She had a 30 day cardiac event monitor. She is also going to have a coronary CTA at [facility]. ROS: Constitutional: No unexplained weight loss, fever, chills, fatigue or night sweats. Respiratory: No wheezing, cough or sputum production. Cardiovascular: See HPI. Denies lower extremity edema. Neurologic: No syncope, numbness or weakness. Endocrine: No cold or heat intolerance. No polyuria or polydipsia. Psychiatric: No depression or anxiety. No SI/HI. [facility] Medical History Chest pain Controlled type 2 diabetes mellitus Chest heaviness Palpitations Hepatomegaly Hepatic steatosis Elevated liver enzymes Microalbuminuric diabetic nephropathy Uncontrolled type 2 diabetes mellitus with hyperglycemia Chronic allergic rhinitis Eczema Atopic dermatitis Diabetes Hx of type 2 diabetes mellitus History of PCOS Surgical History Hx of section Hx of tubal ligation Family History Father Myocardial infarction, Onset Age: 45 CVD (cardiovascular disease) Social History Housing: House Alcohol intake: never Patient Tobacco Use Status: Former Tobacco user Cigarette Packs Per Day: 0.5 Years Smoked: 9 e-Cigarette/Vaping Use: Never Used Second Hand Smoke Exposure: No service: No Current occupational status: employed 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 Current occupational exposures/hazards: No Sexual orientation: Straight/Heterosexual Gender identity: Female Cognitive needs: No Hearing needs: No Vision needs: No Telehealth Telehealth Telehealth Platform: Telephone Location of provider rendering services: practice address Location of patient: other Patient Identification confirmed using: Name, : Yes Telehealth method: voice only Patient verbally consented to treatment: Yes Patient verbally consented to billing insurance company: Yes Patient informed of any privacy concerns related to visit: Yes Minutes spent on Phone/Video with Pt.: 16 Assessment & Plan Assessment & Plan (1) Controlled type 2 diabetes mellitus: Code(s): E11.9 - Type 2 diabetes mellitus without complications Category: Medical (2) Palpitations: Code(s): R00.2 - Palpitations Category: Medical (3) Chest heaviness: Code(s): R07.89 - Other chest pain Category: Medical Plan The patient is being evaluated by Cardiology for chest pain and palpitations. She will remain off GLP 1 at this time. Discontinued from med list. Discussed medication options. Ultimately she messaged back that she would like to try glimepiride. I sent a prescription for 2 mg tablet to take daily with breakfa st. Continue metformin 1000 mg twice daily and Lantus 10 units daily. She has a CGM to monitor continuously for hypo and hyperglycemia. We discussed she can decrease Lantus if she experiences hypoglycemia. Reviewed treatment of hypoglycemia. She has a follow up appointment with me in October. Coding Level of Care Code Tele Est Pt Level 4 (23234) Complex EM visit Add On G2211 Diagnoses Controlled type 2 diabetes mellitus E11.9 Palpitations R00.2 Chest heaviness R07.89
== END 2024-09-10 09:33 | disposition home or self-care (01) ==
LOC: HO.HMCFM 08:40
PROVIDERS: PCP Physician Assistant Medical; Visit Provider Physician Assistant Medical
DX: E11.9 Type 2 diabetes mellitus without complications (principal); R00.2 Palpitations; R07.89 Other chest pain

== ENCOUNTER 2025-04-22 09:37 | Outpatient (AMB) | payer OTHER, SELFPAY ==
--- NOTE | 2025-04-22 09:54 | A.OFFPC_ITS ---
Vital Signs 04/22/25 09:57 Height 5 ft 1 in Weight 167 lb 2 oz BMI 31.6 BP 116/64 Blood Pressure Location Lt brachial Position Sitting Respiration 16 Pulse 93 Pulse Source Pulse Oximeter Temp 98.4 F Temp Source Temporal Artery Scan Pulse Oximetry (%) 97 Oxygen Delivery Method Room Air Intake Visit Reasons: diabetes follow up Intake Note: Katherine presents in the office today for a diabetes follow up. Allergies lisinopril Adverse Reaction (Severe, Verified 04/22/25 09:55) Cough ARTIFICIAL SWEETENERS Allergy (Intermediate, Uncoded 04/22/25 09:55) HIVES, VOMITING Medication List - Last Reconciled 04/23/25 by YUMIKO Coombs atorvastatin 20 mg PO BEDTIME blood pressure monitor As directed blood sugar diagnostic (Contour Test Strips) Use as directed to check blood glucose 5 times daily. blood-glucose meter (Contour Meter kit) Use as directed to check blood glucose 5 times daily. blood-glucose sensor (DexTu Closet Mi Closet G7 Sensor device) apply new sensor every 10 days as directed blood-glucose,model and mold maker,cont (Dexcom G7 Commercial Property Manager) As directed crisaborole 2% (Eucrisa) 1 appl topical BID PRN famotidine 20 mg PO BID glimepiride 2 mg PO QAM insulin glargine (Lantus Solostar U-100 Insulin) 24 units subcut .qhs insulin lispro (Humalog KwikPen (U-100) Insulin) 4 - 8 units (0.04 - 0.08 mL) subcut USEASDIRECTD ipratropium bromide 2 sprays intranasal QID 30 days lancets (Microlet Lancet) Use to check blood glucose five times daily. metformin ER 1,500 mg (3 x 500 mg) PO DAILY 90 days metoprolol succinate ER 50 mg (2 x 25 mg) PO DAILY ondansetron HCl 4 mg PO Q8H PRN pen needle, diabetic Use to inject insulin 4 times daily. Toujeo SoloStar U-300 Insulin (insulin glargine U-300 conc) 24 units (0.08 mL) subcut BEDTIME NS Tobacco use date assessed: 04/22/25 Dental Screening Dental Screen Date: 04/22/25 Did you have a dental visit in the last 12 months?: Yes Did you have a dental problem in the last 6 months where you did not have access to dental care?: No Was dental information given to patient?: Patient has dentist HPI HPI Comments History of Present Illness Details This is a 34-year-old female with a past medical history of type 2 diabetes, microalbuminuria diabetic nephropathy, palpitations, hepatic steatosis, elevated liver enzymes and eczema presenting to discuss diabetes medication. The patient is currently taking Lantus 24 units in the morning, metformin extended release a 1000 mg twice daily, glimepiride 2 mg daily and Humalog. She uses 8 units of Humalog before her coffee and takes an additional 24 units before breakfast, and she struggles with high sugars in the morning. If she is having a lunch that it just vegetables and protein she does not use Humalog, but otherwise she will take 10 units before. She does not use Humalog before dinner because she was having low blood sugars overnight. Her fasting sugars are in the 130s to 140s. Hemoglobin A1c is 7.4%. Past medication: Mounjaro discontinued due to tachycardia. Trulicity also caused high heart rate. Glipizide was ineffective. SGLT2 was never initiated because she was prone to yeast infections. She also tried Januvia in the past. She does not recall the outcome. She has chronic constipation. No blood in stools. It makes her feel bloated and nauseous. Denies family history of GI pathology or cancer. She wanted to ask what medications are okay to take [id number]. She has tried Dulcolax, MiraLax, Metamucil. She does not notice a specific foods cause constipation. She was previously evaluated here and by Cardiology for chest pain and palpitations with elevated heart rate, and tachycardia was thought to be related to Mounjaro. This was discontinued. She was placed on metoprolol extended release 50 mg daily, and she has decreased down to 25 mg a day without recurrent symptoms. She would like to know if she can decrease this further. She is on atorvastatin for hyperlipidemia. She requests a refill on Eucrisa which she has used in the past for eczema. She has a son her eyelids and hands. She tried hydrocortisone which is ineffective. She is using Vanicream daily to moisturize. She received her flu vaccine. ROS: Constitutional: No unexplained weight loss, fever, chills, fatigue or night sweats. Eyes: No vision changes Respiratory: No shortness of breath, cough or sputum production. Cardiovascular: No chest pain, chest pressure or chest discomfort. No palpitations or pedal edema. Gastrointestinal: No vomiting, diarrhea, blood in stools or abdominal pain. See HPI. Endocrine: No cold or heat intolerance. No polyuria or polydipsia. Physical exam: Constitutional: Alert, in no distress. Neck: Supple, Full range of motion. No lymphadenopathy. No palpable thyroid masses. Respiratory: Clear to auscultation. Cardiovascular: S1 S2 regular. No murmurs. Gastrointestinal: Abdomen soft, non-tender, non-distended. Normal bowel sounds. No palpable masses. Extremities: Warm and well perfused. No clubbing, cyanosis or edema. Skin: Dry patches on eyelids. Psychiatric: Normal mood and affect [facility] Medical History (Updated 04/23/25 @ 12:32 by YUMIKO Coombs) Uncontrolled type 2 diabetes mellitus with hyperglycemia Chest pain Controlled type 2 diabetes mellitus Chest heaviness Palpitations Hepatomegaly Hepatic steatosis Elevated liver enzymes Microalbuminuric diabetic nephropathy Chronic allergic rhinitis Eczema Atopic dermatitis Diabetes Hx of type 2 diabetes mellitus History of PCOS Surgical History Hx of section Hx of tubal ligation Family History Father Myocardial infarction, Onset Age: 45 CVD (cardiovascular disease) Social History (Updated 04/22/25 @ 09:57 by Riri Buckley CMA) Housing: House Alcohol intake: never Patient Tobacco Use Status: Former Tobacco user Cigarette Packs Per Day: 0.5 Years Smoked: 9 e-Cigarette/Vaping Use: Never Used Second Hand Smoke Exposure: No service: No Current occupational status: employed Current occupation: B[employer] Current occupational exposures/hazards: No Sexual orientation: Straight/Heterosexual Gender identity: Female Cognitive needs: No Hearing needs: No Vision needs: No Questionnaire Thrive Questionnaire Date Thrive assessed: 07/19/24 I am a: Patient What is your living situation today?: I have a steady place to live Within the past 12 months, did the food you bought not last and you didn't have the money to get more?: Never true Within the past 12 months, did you worry whether your food would run out before you got money to buy more?: Never true Do you have trouble paying for medicines?: No Do you have trouble getting transportation to medical appointments?: No Do you have trouble paying your heating and electricity bill?: No Do you have trouble taking care of your child, family member or friend?: No Do you have trouble with day-to-day activities such as bathing, preparing meals, shopping, managing finances, etc.?: No Are you currently unemployed and looking for a job?: No Are you interested in more education?: No Please select the resources that you would like help with: None Currently or been in a relationship where the following occur: No concerns reported THRIVE Score: 0 BULL-7 AMB Questionnaire BULL-7 Date BULL - 7 assessed: 07/19/24 Source: Developed by Drs. Brad Dao, Wendy Johnson, Noé Escobar and colleagues, with an educational lefty from [employer]. Physical exam (Primary Care) Vital Signs: Last Vital Signs Temp 98.4 F 04/22/25 09:57 Pulse 93 04/22/25 09:57 Resp 16 04/22/25 09:57 BP 116/64 04/22/25 09:57 Pulse Ox 97 04/22/25 09:57 Oxygen Delivery Method Room Air 04/22/25 09:57 BMI result Body Mass Index 31.6 Tobacco/Smoking Status: Tobacco use Status Tobacco use date assessed 04/22/25 04/22/25 10:01 Patient Tobacco Use Status Former Tobacco user 04/22/25 09:57 e-Cigarette/Vaping Use Never Used 04/22/25 09:57 Thrive Assessment: Date of Thrive Assessment Date Thrive assessed 07/19/24 04/22/25 09:54 Currently or been in a relationship where the following occur: No concerns reported Results AMB Hemoglobin A1c AMB Hemoglobin A1c 7.4 % Last Edit by Riri Buckley CMA on 04/22/25 10:29 Results Reviewed Results Reviewed: Laboratory Last Values Hgb A1c (Clinic) 7.4 % (4.0-6.0) H 04/22/25 10:03 Coding Level of Care Code Est Pt Level 4 (61777) Complex EM visit Add On G2211 Diagnoses Uncontrolled type 2 diabetes mellitus with hyperglycemia E11.65 Microalbuminuric diabetic nephropathy E11.21 Atopic dermatitis L20.9 Mixed hyperlipidemia E78.2 Hyperlipidemia type: mixed hyperlipidemia Hypertension goal BP (blood pressure) < 130/80 I10 Assessment & Plan Assessment & Plan (1) Uncontrolled type 2 diabetes mellitus with hyperglycemia: Code(s): E11.65 - Type 2 diabetes mellitus with hyperglycemia Category: Medical Plan: 34-year-old female with suboptimally controlled type 2 diabetes. Stop Lantus and switch to Toujeo 24 units at bedtime. Toujeo is medically necessary as the patient is prone to hypoglycemia and this is the preferred insulin in such patients. Increase metformin ER to 1500 mg daily. Continue glimepiride 2 mg daily. Continue administration of Humalog 24 units before breakfast and 10 units before lunch. She does not administer before lunch if she is not eating carbohydrates. Continue routine eye exams. Reviewed complications of diabetes. Bring glucometer to all appointments. Treatment of hypoglycemia reviewed with the patient. (2) Microalbuminuric diabetic nephropathy: Code(s): E11.21 - Type 2 diabetes mellitus with diabetic nephropathy Category: Medical Plan: Off KAJAL inhibitor due to cough. SGLT2 not prescribed-see HPI. (3) Atopic dermatitis: Code(s): L20.9 - Atopic dermatitis, unspecified Category: Medical Plan: Hydrocortisone ineffective. Prescribed Eucrisa which would be preferred given that eczema is on the eyelids which is more sensitive to side effects of topical steroid use like atrophy and skin discoloration. (4) Hyperlipidemia: Code(s): E78.5 - Hyperlipidemia, unspecified Category: Medical Qualifiers: Hyperlipidemia type: mixed hyperlipidemia Qualified Code(s): E78.2 - Mixed hyperlipidemia Plan: Continue atorvastatin. (5) Hypertension goal BP (blood pressure) < 130/80: Code(s): I10 - Essential (primary) hypertension Category: Medical Plan: Continue low-sodium diet and avoidance of caffeine. Plan Follow up in 1 month. Orders: Orders TSH reflex Free T4 04/22/25 E11.9 - Type 2 diabetes mellitus without complications, E78.2 - Mixed hyperlipidemia, I10 - Essential (primary) hypertension AMB Hemoglobin A1c 04/22/25 E11.9 - Type 2 diabetes mellitus without complications Vitamin B12 04/22/25 E11.9 - Type 2 diabetes mellitus without complications, E78.2 - Mixed hyperlipidemia, I10 - Essential (primary) hypertension, Z91.89 - Other specified personal risk factors, not elsewhere classified Lipid Panel 04/22/25 E11.9 - Type 2 diabetes mellitus without complications, E78.5 - Hyperlipidemia, unspecified, I10 - Essential (primary) hypertension Comprehensive Met. Panel 04/22/25 E11.9 - Type 2 diabetes mellitus without complications, E78.2 - Mixed hyperlipidemia, I10 - Essential (primary) hypertension Medications: New Toujeo SoloStar U-300 Insulin (insulin glargine U-300 conc) 24 units (0.08 mL) subcut BEDTIME 4.5 mL 5RF NS crisaborole 2% (Eucrisa) 1 appl topical BID PRN 100 grams 3RF eczema Changed From metformin ER 1,000 mg (2 x 500 mg) PO DAILY 30 days 60 tabs 3RF To metformin ER 1,500 mg (3 x 500 mg) PO DAILY 270 tabs 3RF 90 days Discontinued insulin glargine (Lantus Solostar U-100 Insulin) Discontinued Reason: Doctor's Order 24 units subcut .qhs
[2025-04-22 09:57] VITALS: BP 116/64; PULSE 93; RESP 16; TEMP 36.9; O2SAT 97; BMI 31.6
--- OUTSIDE RECORDS SUMMARY | 2025-04-22 11:03 | XMS_ITS | Clinical Summary ---
Author Organization [facility] Address [address] [place] [id number] Phone Care Team Providers Care Kennel Attendant Name Role Phone Pcp, Unknown Unavailable Unavailable Allergies No known active allergies Medications metFORMIN (GLUCOPHAGE-XR) 500 MG 24 hr tablet TAKE 1 TABLET BY MOUTH TWICE A DAY WITH MEALS 180 tablet 11/04/2021 Active dulaglutide (TRULICITY) 1.5 mg/0.5 mL subcutaneous injectionIndicati ons:Type 2 diabetes mellitus without complication, with long-term current use of insulin Inject 0.5 mL (1.5 mg total) under the skin every 7 days. 6 mL 1 02/22/2022 Active Active Problems Problem Noted Date Diagnosed Date Rash and other nonspecific skin eruption 021 Assessment & Plan (12/24/2020 1:40 PM EDT): Chronic with recent worsening. Has never been to see dermatology. Has had minimal improvement with hydrocortisone and eucrisa over the years -will refer to [facility] dermatology for further evaluation and management Encounter for routine adult health examination without abnormal findings 09/16/2020 Assessment & Plan (09/16/2020 12:26 PM EST): Pap: NIL in 02/19/2019. Next due 2021. Continues to follow with [facility] obgyn Labs: completed A1c/lipids in July. Immunizations: tdap given today. Next due 2030. Had flu shot already this year. Follow up annually for CPE Palpitations 09/16/2020 Assessment & Plan (09/16/2020 12:30 PM EST): Hasn't had any for 2 weeks. No associated chest pain. Discussed common causes of palpitations including decreased/poor quality sleep, dehydration, caffeine intake, stress/anxiety. She will continue to monitor for recurrence and ensure she is sleeping and staying hydrated, avoiding excessive caffeine. Follow up if any new/worsening symptoms Type 2 diabetes mellitus wit hout complication, without long-term current use of insulin 05/21/2020 Assessment & Plan (12/24/2020 1:39 PM EDT): Medications: -metformin 500mg po bid -glipizide IR 10mg daily -trulicity 0.75mg SQ once weekly -statin: none currently -acei/arb: none currently Labs: -last a1c: 7.2% 07/31/20 -last urinemicroalbumin: normal 07/31/20 Exams: -eye exam: scheduled for annual with [facility]. Will request records -foot exam: completed. No neuropathy on exam. DM controlled. Will send standing lab orders to [facility] and she will have those done soon. Will send me a message once those have been drawn and we will review and discuss stopping her glipizide and increasing her trulicity which will likely make it easier for her to continue with weight loss. She agrees with this plan and I will send over higher dose of trulicity now. Continue metformin 500mg BID. Plan to follow up in 3-6 months pending lab results Assessment & Plan (09/16/2020 12:28 PM EST): Medications: -metformin 500mg po bid -glipizide IR 10mg daily -trulicity 0.75mg SQ once weekly -statin: none currently -acei/arb: none currently Labs: -last a1c: 7.2% 07/31/20 -last urinemicroalbumin: normal 07/31/20 Exams: -eye exam: scheduled for annual with [facility]. Will request records -foot exam: completed. No neuropathy on exam. DM controlled. Discussed having labs with follow up q3 months. Will refill medications today. She agrees with plan Assessment & Plan (05/21/2020 9:01 AM EST): Medications: -metformin 500mg po bid -glipizide IR 10mg daily -trulicity (unsure of dose) once weekly -statin: none currently -acei/arb: none currently Labs: -last a1c: due. -last urinemicroalbumin: due Exams: -eye exam: scheduled for annual with [facility]. Will request records -foot exam: due Will contact pt's pharmacy to confirm medication dosing and then send in refills. Labs ordered and will be faxed to [facility] to be done debbi. She will follow up in the office in the next month for CPE with lab review and foot exam. She agrees with this plan. Encouraged to bring in BG logs at that time. PCOS (polycystic ovarian syndrome) 05/21/2020 Assessment & Plan (05/21/2020 9:02 AM EST): Lita. Continues to follow with her OBGYN at [facility]. utd on pap. Will request records Immunizations Immunization Administration Dates Next Due Hepatitis B Adult 04/04/2015 INFLUENZA, SPLIT VIRUS, TRIVALENT PF 06/03/2015 Influenza Quadrivalent Prese rvative Free IM 05/07/2021,05/08/2020,05/02/2019,2015 Influenza, Unspecified Formulation 05/05/2021 Tdap 09/04/2020 Varicella 11/17/2018,10/13/2018 Family History Medical History Relation Comments Heart disease Father Relation Status Comments Father Social History Tobacco Use Types Packs/Day Years Used Date Smoking Tobacco: Never Smokeless Tobacco: Never Alcohol Use Standard Drinks/Week Comments Yes 0 (1 standard drink = 0.6 oz pur e alcohol) Education Answer Date Recorded Are you interested in more education? Not on rahel e 11/12/2022 Are you concerned about learning? Not on file 11/12/2022 No 11/12/2022 No 11/12/2022 Digital Access Answer Date Recorded No 12/13/2022 No 12/13/2022 No 12/13/2022 Reliable internet access at home? Not on file 12/13/2022 Device with a working camera? Not on file Comments Unknown Sex and Gender Information Value Date Recorded Sex Assigned at Not on file Legal Sex Female 9:00 PM EDT Gender Identity Not on file Sexual Orientation Not on file Last Filed Vital Signs Vital Sign Reading Time Taken Comments Blood Pressure 138/78 02/12/2022 12:39 PM EDT Pulse 102 02/12/2022 12:39 PM EDT Temperature 36.4 C (97.5 F) 02/12/2022 12:39 PM EDT Respiratory Rate - - Oxygen Saturation 99% 02/12/2022 12:39 PM EDT Inhaled Oxygen Concentration - - Weight 73.3 kg (161 lb 9.6 oz) 02/12/2022 12:39 PM EDT Height 159.5 cm (5' 2.8 ) 02/12/2022 12:39 PM ED T Body Mass Index 28.81 02/12/2022 12:39 PM EDT Plan of Treatment Health Maintenance Due Date Last Done Comments BLOOD PRESSURE 1991 HEPATITIS C SCREENING 10/13/2009 HIV ONE-TIME SCREENING (18-65 YEARS) 10/13/2009 PNEUMOCOCCAL VACCINES (0-49 years) (1 of 2 - PCV) 10/13/2010 HEMOGLOBIN A1C 01/28/2021 07/31/2020 DIABETIC EYE EXAM 07/17/2021 07/17/2020, 03/29/2018 LIPID PANEL 07/31/2021 07/31/2020, 07/18, 07/31/2020, Additional history exists URINE MICROALBUMIN/CREATININE RATIO 07/31/2021 07/31/2020 CREATININE LEVEL 12/24/2021 12/24/2020, , 05/21/2020 PAP SMEAR 03/01/2022 03/01/2019 DEPRESSION SCREENING 02/09/2023 02/09/2022 INFLUENZA VACCINE (#1) 2025 , 05/05/2021, 05/08/2020, Additional history exists COVID-19 VACCINE ( season) 2025 03/22/2021, 03/01/2021 Adult Td,Tdap Booster 09/04/2030 09/04/2020 SMOKING STATUS SCREENING (Once After 26 Yrs) Completed 02/12/2022 HEPATITIS A VACCINES Aged Out No long er eligible based on patient's age to complete this topic HIB VACCINES Aged Out No longer eligi ble based on patient's age to complete this topic MENINGOCOCCAL VACCINES (ACWY) Aged Out No longer eligible based on patient's age to complete this topic MENINGOCOCCAL VACCINES (B) Aged Out N o longer eligible based on patient's age to complete this topic Medical Devices Not on file Procedures Procedure Name Priority Date/Time Associated Diagnosis Comments OUTSIDE URINE MALB/CRE RATIO Routine 07/31/2020 OUTSIDE HEMOGLOBIN A1C Routine 07/31/2020 OUTSIDE HDL Routine 07/31/2020 OUTSIDE SERUM CREATININE LEVEL Routine 07/31/2020 DIABETES EYE EXAM FOR RESULT ENTRY ONLY Routine 07/17/2020 PAP SMEAR FOR RESULT ENTRY ONLY Routine 03/01/2019 from Last 3 Months or Most Recently Relevant to Health Maintenance Results * Outside HbA1c (07/31/2020) Hemoglobin A1c - External 7.2 % Result [facility] Provider LAB BLOOD ORDERABLES [place] Result * Outside Urine MALB/Cre Ratio (07/31/2020) Microalbumin/Cr eatinine Ratio, urine - External normal Result [facility] Provider LAB BLOOD ORDERABLES [place] Result * (ABNORMAL) Outside Serum Creatinine Level (07/31/2020) Creatinine, serum - External 0.69(A) 0.8 - 1.3 mg/dL Result [facility] Provider LAB BLOOD ORDERABLES [place] Result * Outside HDL (07/31/2020) HDL - External 40 40 - 80 mg/dL Result [facility] Provider LAB BLOOD ORDERABLES [place] Result * DIABETES EYE EXAM FOR RESULT ENTRY ONLY (07/17/2020) Result [facility] Provider HEALTH MAINTENANCE Edited Result - Final * PAP SMEAR FOR RESULT ENTRY ONLY (03/01/2019) us Historical Provider HEALTH MAINTENANCE Edited Result - Final from Last 3 Months or Most Recently Relevant to Health Maintenance Insurance [employer] Member Subscriber Plan / Payer (Ef fective 2019-Present) Name:Katherine Merlos Relation to Subscriber:Self Name:Katherine Merlos Payer ID:[id number] (NAIC) Type:PPO Address: [address] [employer] Care Teams Kennel Attendant Relationship Specialty Start Date End Date Pcp, Unknown 04/30/20 Additional Source Comments The information contained in this document represents components of the legal health record. It is not the complete legal health record.[facility]
== END 2025-04-22 10:49 | disposition home or self-care (01) ==
LOC: HO.HMCFM 09:39
PROVIDERS: PCP Physician Assistant Medical; Visit Provider Physician Assistant Medical
DX: E11.65 Type 2 diabetes mellitus with hyperglycemia (principal); E11.21 Type 2 diabetes mellitus with diabetic nephropathy; L20.9 Atopic dermatitis, unspecified; E78.2 Mixed hyperlipidemia; I10 Essential (primary) hypertension

== ENCOUNTER → 2025-04-22 09:37 | Outpatient (BNVA) | payer OTHER, SELFPAY | PROVIDERS: PCP Physician Assistant Medical; Visit Provider Physician Assistant Medical | DX: E11.65 Type 2 diabetes mellitus with hyperglycemia (principal); E11.21 Type 2 diabetes mellitus with diabetic nephropathy; L20.9 Atopic dermatitis, unspecified; E78.2 Mixed hyperlipidemia; I10 Essential (primary) hypertension; Z79.84 Long term (current) use of oral hypoglycemic drugs; Z79.899 Other long term (current) drug therapy | CPT/HCPCS: 83036 ==

== ENCOUNTER 2025-04-24 10:37 | Outpatient (REF) | payer OTHER, SELFPAY ==
[2025-04-25 05:12] LABS: Bacterial Vaginosis PCR NEGATIVE (Negative); Candida Group PCR DETECTED (Not Detect); Candida glab krusei PCR NOT DETECTED (Not Detect); Trichomonas vaginalis PCR NOT DETECTED (Not Detect)
== END 2025-04-24 10:38 | disposition home or self-care (01) ==
LOC: HO.LNP 10:37
PROVIDERS: PCP Physician Assistant Medical; Visit Provider Advanced Practice Midwife
DX: Z01.419 Encounter for gynecological examination (general) (routine) without abnormal findings (principal); Z20.2 Contact with and (suspected) exposure to infections with a predominantly sexual mode of transmission; N90.89 Other specified noninflammatory disorders of vulva and perineum; Z98.51 Tubal ligation status
CPT/HCPCS: 81515

== ENCOUNTER 2025-04-24 10:37 | Outpatient (AMB) | payer OTHER, SELFPAY ==
[2025-04-24 10:49] VITALS: BP 108/60; BMI 32.1
--- NOTE | 2025-04-24 10:49 | A.OFFVIS_ITS ---
Vital Signs 04/24/25 10:49 Height 5 ft 1 in Weight 170 lb BMI 32.1 BP 108/60 Intake Visit Reasons: New patient Annual Intake Note: no concerns Sewing Machine Adjuster Required: No Information Interpreted: non-clinical & clinical Contact Assembler: Contact Assembler Present (Iwona Coronado KANA) Accompanied by: Self / Same As Patient Allergies lisinopril Adverse Reaction (Severe, Verified 04/24/25 10:53) Cough ARTIFICIAL SWEETENERS Allergy (Intermediate, Uncoded 04/24/25 10:53) HIVES, VOMITING Is last menstrual period known: Yes Last menstrual period: 03/18/25 HPI Comments Details: Patient is a premenopausal woman presenting for a new patient annual examination. 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 Hx. of DM and frequent yeast episodes corresponding to her blood sugar levels. Prefers topical medications. Menses cycles q 6wks since last delivery 8 yrs. ago. Prior to cycles skipped every 3-4 months. Currently is sexually active. STI screening offered; she declines. She tries to eat healthy and stays active with exercise a few times a week. Denies family history of breast, ovarian or colon cancer. Last pap smear 2021, negative. [facility] Medical History (Updated 04/24/25 @ 12:33 by Yu Valentin CNM) Encounter for well woman exam with routine gynecological exam Uncontrolled type 2 diabetes mellitus with hyperglycemia Chest pain Controlled type 2 diabetes mellitus Chest heaviness Palpitations Hepatomegaly Hepatic steatosis Elevated liver enzymes Microalbuminuric diabetic nephropathy Chronic allergic rhinitis Eczema Atopic dermatitis Diabetes Hx of type 2 diabetes mellitus History of PCOS Surgical History Hx of section Hx of tubal ligation Family History Father Myocardial infarction, Onset Age: 45 CVD (cardiovascular disease) Social History (Updated 04/24/25 @ 11:27 by Yu Valentin CNM) Housing: House Alcohol intake: never Patient Tobacco Use Status: Former Tobacco user Cigarette Packs Per Day: 0.5 Years Smoked: 9 e-Cigarette/Vaping Use: Never Used Second Hand Smoke Exposure: No service: No Current occupational status: employed Current occupation: [employer] Current occupational exposures/hazards: No Sexual orientation: Straight/Heterosexual Gender identity: Female Cognitive needs: No Hearing needs: No Vision needs: No Female Reproductive History Menstrual Age of Menarche: 12 Duration of menses: 3-5 days Date of last menstrual period: 03/18/25 control method: permanent sterilization Total pregnancies: 2 Full term: 2 Number of Living Children: 2 Date of last pap smear: 04/14/22 History of abnormal pap smear: No Review of Systems Const All systems reviewed & are unremarkable except as noted in HPI and below Reports as per HPI Eyes Reports no additional complaints ENT Reports no additional complaints Card Reports no additional complaints Resp Reports no additional complaints GI Reports as per HPI and Reports no additional complaints Reports as per HPI Musc Reports no additional complaints Skin/Breast Reports as per HPI Neuro Reports no additional complaints Psych Reports no additional complaints Endo Reports no additional complaints Jonh/Lymph Reports no additional complaints Aller/Immun Reports no additional complaints Physical Exam Vital Signs: Last Vital Signs BP 108/60 04/24/25 10:49 BMI result Body Mass Index 32.1 Const General: cooperative, healthy appearing, no acute distress, well developed and alert Orientation/consciousness: patient oriented x3 HEENT Head: Yes normal to inspection Eyes General: appearance normal, both eyes and all related structures Neck Neck: Yes normal visual inspection Thyroid: Thyroid normal Chest Chest palpation & inspection: normal inspection of the chest and other (no puckering, dimpling, peau de orange, retraction, discharge, masses) Breast/axilla inspection: normal inspection of the breasts Breast/axilla palpation: normal palpation of the breasts Resp Effort & Inspection: normal respiratory effort GI Inspection: Yes normal to inspection Palpation (GI): Soft to palpation Rectal Exam - Female: deferred General: Yes bladder normal to palpation External Female Exam: normal external appearance, normal appearance of the urethra and erythema Speculum Exam - Vagina: normal appearance of the vagina, normal palpation and normal vaginal discharge Speculum Exam - Cervix: normal appearance of the cervix and normal palpation Bimanual exam- vagina & uterus: normal bimanual exam, normal palpation, uterine size normal, bladder normal to palpation, normal palpation and non-tender Bimanual Exam- Adnexa, other: no masses Skin General skin exam: no rashes or lesions noted Rashes: no rashes Neuro General: patient oriented x3 Cognition (Neuro): normal cognition Extrem General: Yes normal to inspection Psych Attitude: cooperative Thought process: Normal thought process present Assessment & Plan Assessment & Plan (1) Encounter for well woman exam with routine gynecological exam: Code(s): Z01.419 - Encounter for gynecological examination (general) (routine) without abnormal findings Category: Medical Plan: Discussed: Current recommendations for pap smears per ASCCP guidelines. Breast awareness and periodic breast exams. BV panel obtained await results for final plan of care. Encouraged healthy diet with good glucose control. Maintain a healthy lifestyle including a well balanced diet and routine exercise. Patient verbalizes understanding and agrees to the plan of care. She was given opportunity to ask questions and all questions were answered to the best of my ability. RTO in one year for annual claims vice president examination. This note is constructed using voice recognition software. While every effort has been made to ensure accuracy, motor brakeman errors may have been included. (2) Vulvar irritation: Code(s): N90.89 - Other specified noninflammatory disorders of vulva and perineum Plan BV panel obtained await results for final plan of care. Prescription for medication sent in to pharmacy with refills. The patient expressed understanding and agreement with the plan of care. All of her questions and c oncerns were addressed to the best of my ability. Orders: Orders Bacterial Vaginosis Panel Today Z11.3 - Encounter for screening for infections with a predominantly sexual mode of transmission Medications: New clotrimazole-betamethasone 1-0.05 % 1 appl topical BID 45 grams 1RF fungal rash 7 days Coding Level of Care Code Est Pt Prev Care 18-39y(41117) Diagnoses Encounter for well woman exam with routine gynecological exam Z01.419 Vulvar irritation N90.89
== END 2025-04-24 11:43 | disposition home or self-care (01) ==
LOC: HO.HWS 10:38
PROVIDERS: PCP Physician Assistant Medical; Visit Provider Advanced Practice Midwife
DX: Z01.419 Encounter for gynecological examination (general) (routine) without abnormal findings (principal); N90.89 Other specified noninflammatory disorders of vulva and perineum
CPT/HCPCS: 99395; 99459

== ENCOUNTER 2025-06-10 07:08 | Outpatient (REF) | payer OTHER, SELFPAY ==
--- OUTSIDE RECORDS SUMMARY | 2025-06-10 07:11 | XMS_ITS | Clinical Summary ---
Author Organization [facility] Address [address] [place] [id number] Phone Care Team Providers Care Bandmill Operator Name Role Phone Pcp, Unknown Unavailable Unavailable [...] eucrisa over the years -will refer to [facility] dermatology for further evaluation and management Encounter for routine adult health examination without abnormal findings 09/16/2020 Assessment & Plan (09/16/2020 12:26 PM EST): Pap: NIL in 02/19/2019. Next due 2021. Continues to follow with [facility] Labs: completed A1c/lipids in [...] Exams: -eye exam: scheduled for annual with [facility]. Will request records -foot exam: completed. No neuropathy on exam. DM controlled. Will send standing lab orders to [facility] and she will have those [...] Exams: -eye exam: scheduled for annual with [facility]. Will request records -foot exam: completed. No [...] Exams: -eye exam: scheduled for annual with [facility]. Will request records -foot exam: due Will contact pt's pharmacy to confirm medication dosing and then send in refills. Labs ordered and will be faxed to [facility] to be done debbi. She will follow up in the office in the next month for CPE with lab review and foot exam. She agrees with this plan. Encouraged to bring in BG logs at that time. PCOS (polycystic ovarian syndrome) 05/21/2020 Assessment & Plan (05/21/2020 9:02 AM EST): Lita. Continues to follow with her OBGYN at [facility]. utd on pap. Will request [...] Hemoglobin A1c - External 7.2 % Result [facility] Provider LAB BLOOD ORDERABLES [place] l Result * Outside Urine MALB/Cre Ratio (07/31/2020) Microalbumin/Cr eatinine Ratio, urine - External normal Result [facility] Provider LAB BLOOD ORDERABLES [place] [facility] Result * (ABNORMAL) Outside Serum Creatinine Level (07/31/2020) Creatinine, serum - External 0.69(A) 0.8 - 1.3 mg/dL Result [facility] Provider LAB BLOOD ORDERABLES [place] [facility] Result * Outside HDL (07/31/2020) HDL - External 40 40 - 80 mg/dL Result [facility] Provider LAB BLOOD ORDERABLES [place] [facility] Result * DIABETES EYE EXAM FOR RESULT ENTRY ONLY (07/17/2020) Result [facility] Provider HEALTH MAINTENANCE Edited Result - Final * PAP SMEAR FOR RESULT ENTRY ONLY (03/01/2019) us Historical Provider HEALTH MAINTENANCE Edited Result - Final from Last 3 Months or Most Recently Relevant to Health Maintenance Insurance [employer] Member Subscriber Plan / Payer (Ef fective 2019-Present) Name:Katherine Merlos Relation to Subscriber:Self Name:Katherine Merlos Payer ID:[id number] (NAIC) Type:PPO Address: [address] [employer] Care Teams Bandmill Operator Relationship Specialty Start Date End Date Pcp, Unknown 04/30/20 Additional Source Comments The information contained in this document represents components of the legal health record. It is not the complete legal health record.[facility]
[2025-06-10 08:58] LABS: Alanine Aminotransferase 67 U/L (0-31); Albumin Level 5.2 g/dL (3.5-5.0); Alkaline Phosphatase 95 U/L (39-117); Anion Gap 16 (12-20); Aspartate Amino Transferase 34 U/L (5-31); Blood Urea Nitrogen 14 mg/dL (9-16); Calcium 10.2 mg/dL (8.4-10.2); Carbon Dioxide 22 mmol/L (22-29); Chloride 105 mmol/L (96-108); Cholesterol 150 mg/dL (<200); Estimated Glomerular Filt Rate > 60; HDL Cholesterol 38 mg/dL (>40); Potassium 4.5 mmol/L (3.3-5.1); Sodium 138 mmol/L (135-145); Total Protein 7.9 g/dL (6.5-8.0); Triglycerides 230 mg/dL (<150)
[2025-06-10 09:19] LABS: Vitamin B12 473 pg/mL (200-900)
== END 2025-06-10 07:09 | disposition home or self-care (01) ==
LOC: HO.LAB 07:08
PROVIDERS: PCP Physician Assistant Medical; Visit Provider Physician Assistant Medical
DX: Z01.84 Encounter for antibody response examination (principal); E11.65 Type 2 diabetes mellitus with hyperglycemia; E11.69 Type 2 diabetes mellitus with other specified complication; E78.2 Mixed hyperlipidemia; I10 Essential (primary) hypertension; Z91.89 Other specified personal risk factors, not elsewhere classified
CPT/HCPCS: 36415; 80053; 80061; 82607; 84443; 84681; 86341

== ENCOUNTER 2025-07-12 22:22 | Emergency (ER) | payer OTHER, SELFPAY ==
--- NOTE | ~2025-07-12 | XR_ITS ---
CLINICAL HISTORY: CP 2 view chest x-ray Comparison: Chest x-ray from 09/08/2023 Findings: No consolidation or effusion. No pneumothorax. Heart size is normal. No acute fracture, by chest radiographs. IMPRESSION: No consolidation This document has been electronically signed by: Javed Conley MD on 07/12/2025 23:30:21
--- NOTE | 2025-07-12 22:24 | ECG_ITS ---
Test Reason : cp Blood Pressure : */* mmHG Vent. Rate : 78 BPM Atrial Rate : 78 BPM P-R Int : 136 ms QRS Dur : 70 ms QT Int : 404 ms P-R-T Axes : 31 15 29 degrees QTcB Int : 460 ms Normal sinus rhythm Normal ECG When compared with ECG of 22-Jul-2024 13:32, No significant change was found Referred By: Valorie De La Torre Electronically Signed By: YAJAIRA IRAHETA MD
[2025-07-12 22:33] VITALS: BP 134/80; PULSE 74; RESP 18; TEMP 36.1; O2SAT 97; BMI 33.0
--- NOTE | 2025-07-12 22:35 | ED.CHESTPAIN ---
HPI - Chest Pain General Chief Complaint: Chest Pain Stated Complaint: CP Time Seen by Provider: 07/12/25 23:18 Source: patient Mode of arrival: ambulatory Limitations: no limitations History of Present Illness ED Provider: Valorie De La Torre APRN HPI narrative: 34 yo female with history of SVT, DM here with complaints of waking with left shoulder pain. No known injury or trauma. Hustle pain throughout the day radiating up to trapezius and to front of shoulder worsened with arm movement. No SOB, cough, fevers, chills, leg swelling or leg pain. No recent travel. Does not smoke. No OCP use. No personal or family history of DVT/PE. Related Data Previous Rx's ?Medication ?Instructions ?Recorded blood pressure monitor #1 ea 05/26/22 blood-glucose,cloth bleaching range tender,cont #1 ea 04/23/24 (Dexcom G7 [employer]) blood sugar diagnostic (Contour #200 ea 05/08/24 Test Strips) blood-glucose meter (Contour Meter #1 ea 05/08/24 kit) lancets (Microlet Lancet) #200 ea 05/08/24 ondansetron HCl 4 mg tablet 4 mg PO Q8H PRN nausea and 03/01/25 vomiting #20 tabs blood-glucose sensor (Dexcom G7 #3 ea 03/05/25 Sensor device) crisaborole 2 % topical ointment 1 appl topical BID PRN eczema #100 04/23/25 (Eucrisa) grams clotrimazole-betamethasone 1 1 appl topical BID fungal rash 7 04/24/25 %-0.05 % topical cream days #45 grams terconazole 0.8 % vaginal cream 1 appful vaginal BEDTIME 3 days 04/25/25 #20 grams famotidine 20 mg tablet 20 mg PO BID #60 tabs 04/29/25 pen needle, diabetic 32 gauge x #200 ea 05/10/25 5/ atorvastatin 20 mg tablet 20 mg PO BEDTIME #90 tabs 05/30/25 insulin lispro 100 unit/mL See Rx Instructions subcut 05/30/25 subcutaneous pen (Humalog KwikPen USEASDIRECTD #45 mL (U-100) Insulin) metformin 500 mg tablet,extended 2,000 mg (4 x 500 mg) PO DAILY 90 05/30/25 release 24 hr days #360 tabs insulin glargine 100 unit/mL (3 60 unit (0.6 mL) subcut DAILY #30 06/10/25 mL) subcutaneous pen (Basaglar mL KwikPen U-100 Insulin) nirmatrelvir 300 mg (150 mg See Rx Instructions PO .COMPLEX 06/11/25 x2)-ritonavir 100 mg tablet,dose #30 ea pack (Paxlovid) metoprolol succinate 25 mg 50 mg (2 x 25 mg) PO DAILY #180 06/21/25 tablet,extended release 24 hr tabs ipratropium bromide 42 mcg (0.06 2 spray intranasal QID 30 days #15 06/27/25 %) nasal spray mL cyclobenzaprine 10 mg tablet 10 mg PO TID PRN muscle spasm #15 07/12/25 tabs ibuprofen 800 mg tablet 800 mg PO Q6H PRN pain #30 tabs 07/12/25 Allergies Allergy/AdvReac Type Severity Reaction Status Date / Time lisinopril AdvReac Severe Cough Verified 07/12/25 22:36 [employer] Allergy Intermediate HIVES, Uncoded 04/24/25 10:53 VOMITING Review of Systems Review of Systems: Yes all other systems are reviewed and are negative Constitutional: Constitutional: Reports no additional constitutional complaints, Denies body ache(s), Denies chills, Denies fever(s), Denies headache(s) and Denies weakness Eyes: Eyes: Reports no additional eye complaints and Denies change in vision ENT: Reports system reviewed and no additional complaints, except as documented, Denies dizziness, Denies headache(s), Denies nasal congestion, Denies nasal discharge and Denies neck pain Cardiovascular: Cardiovascular: Reports no additional cardiovascular complaints, Reports chest pain, Denies leg edema and Denies dyspnea Respiratory: Respiratory: Reports no additional respiratory complaints, Denies cough and Denies dyspnea Gastrointestinal: Gastrointestinal: Reports no additional gastrointestinal complaints, Denies abdominal pain, Denies diarrhea, Denies nausea and Denies vomiting Genitourinary: Genitourinary: Reports no additional female genitourinary complaints and Denies urinary incontinence Musculoskeletal: Musculoskeletal: Reports no additional musculoskeletal complaints, Denies back pain, Reports arthralgias, Denies joint swelling, Denies neck pain, Denies numbness and Denies tingling Integumentary/Breasts: Skin/Breast: Reports system reviewed and no additional complaints, except as docu and Denies rash Neurologic: Reports system reviewed and no additional complaints, except as documented, Denies Abnormal speech present, Denies dizziness, Denies headache(s), Denies numbness, Denies tingling and Denies weakness PMFSH Past Medical History Attestation statement: The following information was validated with the patient. Source: old records reviewed and nursing notes reviewed Medical History SVT (supraventricular tachycardia) Encounter for well woman exam with routine gynecological exam Uncontrolled type 2 diabetes mellitus with hyperglycemia Chest pain Controlled type 2 diabetes mellitus Chest heaviness Palpitations Hepatomegaly Hepatic steatosis Elevated liver enzymes Microalbuminuric diabetic nephropathy Chronic allergic rhinitis Eczema Atopic dermatitis Diabetes Hx of type 2 diabetes mellitus History of PCOS Surgical History Hx of section Hx of tubal ligation Family History Family History Father Myocardial infarction, Onset Age: 45 CVD (cardiovascular disease) Social History Social History Housing: House Alcohol intake: never Patient Tobacco Use Status: Former Tobacco user Cigarette Packs Per Day: 0.5 Years Smoked: 9 e-Cigarette/Vaping Use: Never Used Second Hand Smoke Exposure: No Advance Directives: No Advance Directives Information Provided: Yes Do you have a plan to hurt others: No Plan service: No Current occupational status: employed 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 Current occupational exposures/hazards: No Sexual orientation: Straight/Heterosexual Gender identity: Female Cognitive needs: No Hearing needs: No Vision needs: No Physical Exam Vital Signs: Vital Signs: Last Vital Signs Temp 96.9 F 07/12/25 23:30 Pulse 74 07/12/25 23:30 Resp 18 07/12/25 23:30 BP 134/80 07/12/25 23:30 Pulse Ox 97 07/12/25 23:30 O2 Del Method Room Air 07/12/25 23:30 BMI result Body Mass Index 33.0 Const: General: cooperative, healthy appearing, comfortable and no acute distress Orientation/consciousness: patient oriented x3 Limitations: no limitations HEENT: Head: Yes normal to inspection Ears: hearing grossly normal bilaterally General nose exam: Normal external nose present Face and sinus: Yes normal facial exam Mouth: Normal oral and palatal mucosa present Throat: Yes posterior oropharynx normal Eyes: General: appearance normal, both eyes and all related structures Pupils: Equal, round and reactive pupils present Neck: Neck: Yes normal visual inspection Chest: Chest palpation & inspection: normal inspection of the chest Resp: Effort & Inspection: normal respiratory effort Auscultation: clear to auscultation bilaterally Cardio: Rate: regular rate Rhythm: regular rhythm Peripheral pulses: Peripheral pulses 2+ throughout GI: Inspection: Yes normal to inspection Palpation (GI): Soft to palpation and nontender Auscultation: normal bowel sounds Back/Spine/Pelvis: Thoracic/Lumbar Spine: thoracic and lumbar spine normal to inspection Skin: General skin exam: no rashes or lesions noted Neuro: General: patient oriented x3, no focal motor deficits and normal sensation to monofilament Cranial nerves: Yes Equal, round and reactive pupils present Cognition (Neuro): normal cognition Speech: No Abnormal speech present Gait exam (Neuro): Normal gait present Motor exam (neuro): 5/5 motor strength present throughout Extrem: Other: There is pain on palpation to the left posterior shoulder and in the left trapezius and anterior shoulder which is worsened with movement of the left arm. There is no weakness of the arm. There is normal sensation. There is normal pulses. There is no rash noted. There is no redness or swelling. General: Yes normal to inspection, Yes no calf tenderness and No edema Course Course Course Narrative: Valorie De La Torre OVERNIGHT HOUSEPERSON 07/12 2235 This is a rapid medical exam. Defer additional HPI, ROS and PE to primary provider. 34-year-old female with a history of diabetes and presents the ER with complaints of shoulder pain and chest pain x24 hours. Will obtain labs, EKG, CXR VSS Medical Decision Making Medical Decision Making MDM Narrative: 34 yo female with history of SVT, DM here with complaints of waking with left shoulder pain. No known injury or trauma. Hustle pain throughout the day radiating up to trapezius and to front of shoulder worsened with arm movement. No SOB, cough, fevers, chills, leg swelling or leg pain. No recent travel. Does not smoke. No OCP use. No personal or family history of DVT/PE. There is pain on palpation to the left posterior shoulder and in the left trapezius and anterior shoulder which is worsened with movement of the left arm. There is no weakness of the arm. There is normal sensation. There is normal pulses. There is no rash noted. There is no redness or swelling. Seems musculoskeletal Patient has concerns due to medical history and so I will obtain a EKG, labs and chest x-ray Differential Diagnosis Differential Diagnoses: The differential diagnosis associated with the presentation includes Muscle strain, muscle spasm Low suspicion for ACS with nonischemic EKG and flat troponin with symptoms greater than 12 hours Low suspicion for PE with no hypoxia, no tachypnea, no clinical findings concerning for DVT or PE, perc negative Low suspicion for aortic dissection with gradual onset of symptoms Admission/Observation Consideration of admission/observation: Escalation of care including admission/observation considered Lab Data MDM Lab Attestation statement: I reviewed the patient's lab results. 07/12/25 22:42 07/12/25 22:42 Labs: Lab Results 07/12/25 Range/Units 22:42 WBC 11.5 H (4.8-10.8) X10*3/uL RBC 4.55 (4.20-5.50) X10*6/uL Hgb 13.4 (12.0-16.0) g/dl Hct 39.7 (37.0-47.0) % MCV 87.3 (80.0-98.0) fL MCH 29.5 (27.0-33.0) pg MCHC 33.8 (31.0-35.0) g/dl RDW 12.2 (11.0-16.0) % Plt Count 253 (160-400) X10*3/uL MPV 10.2 (9.4-12.3) fL Immature Gran % (Auto) 0.2 (0.0-0.4) % Neut % (Auto) 57.7 (45-73) % Lymph % (Auto) 34.3 (20-40) % Gentry % (Auto) 6.1 (2-11) % Eos % (Auto) 1.4 (0-4) % Baso % (Auto) 0.3 (0-2) % Lymph # (Auto) 3.9 (1.2-4.9) X10*3/uL Gentry # (Auto) 0.7 (0.1-1.2) X10*3/uL Eos # (Auto) 0.2 (0.0-0.4) X10*3/uL Baso # (Auto) 0.0 (0.0-0.2) X10*3/uL Abs Immat Gran (auto) 0.02 (0.00-0.03) X10*3/uL Absolute Neuts (auto) 6.6 (2.0-8.3) x10*3/uL Absolute Nucleated RBC 0.000 (0.0-0.012) X10*3/uL Nucleated RBC % (auto) 0.0 (0.0-0.2) /100WBC Sodium 137 (135-145) mmol/L Potassium 4.0 (3.3-5.1) mmol/L Chloride 106 (96-108) mmol/L Carbon Dioxide 23 (22-29) mmol/L Anion Gap 12 (12-20) BUN 9 (9-16) mg/dL Creatinine 0.53 (0.5-1.4) mg/dL Estim Creat Clear Calc 143.9 Estimated GFR > 60 Random Glucose 136 H (60-115) mg/dL Calcium 9.5 D (8.4-10.2) mg/dL Total Bilirubin 0.2 (0.0-1.0) mg/dL Direct Bilirubin < 0.2 (0.0-0.5) mg/dL AST 38 H (5-31) U/L ALT 73 H (0-31) U/L Alkaline Phosphatase 86 (39-117) U/L Troponin I High Sens < 2.7 (<3.5-17.0) ng/L Total Protein 7.1 (6.5-8.0) g/dL Albumin 4.5 (3.5-5.0) g/dL Independent Interpretation I performed an independent interpretation of an: EKG and Plain X-Ray Interpretation: I independently viewed the x-ray and agree with the radiology report I independently reviewed the EKG which shows normal sinus rhythm with a rate of 78 Radiology Impression Discussion of test interpretation with radiology: I have reviewed the radiologist's reading. Radiologist Impression: [address] [address] XRay Report Signed Patient: Katherine Merlos MR#: [id number] : 1990 Acct:[id number] Age/Sex: 34 / F ADM Date: 07/12/25 Loc: HO.ED Attending Dr: Ordering Physician: Valorie De La Torre NP Date of Service: 07/12/25 Procedure(s): XR chest 2V Accession Number(s): [id number] cc: Valorie De La Torre NP; Physician,Unknown ~ Reason for Exam: CP CLINICAL HISTORY: CP 2 view chest x-ray Comparison: Chest x-ray from 09/08/2023 Findings: No consolidation or effusion. No pneumothorax. Heart size is normal. No acute fracture, by chest radiographs. IMPRESSION: No consolidation This document has been electronically signed by: Javed Conley MD on 07/12/2025 23:30:21 Discharge Plan Discharge Clinical Impression: Atypical chest pain Patient Disposition: Home, Self-Care Instructions: Chest Pain (ED) Additional Instructions: Your EKG is normal Your blood work is normal with the exception of mildly elevated liver enzyme tests which have been elevated in the past Your chest x-ray is normal Take the medications as prescribed Follow up with her primary care doctor for any continued symptoms Return to the emergency room for any worsening symptoms or additional concerns Prescriptions: New cyclobenzaprine 10 mg tablet 10 mg PO TID PRN (Reason: muscle spasm) Qty: 15 0RF ibuprofen 800 mg tablet 800 mg PO Q6H PRN (Reason: pain) Qty: 30 0RF No Action (DME) lancets [Microlet Lancet] Misc See Rx Instructions .Route Qty: 200 5RF Rx Instructions: Use to check blood glucose five times daily. (DME) blood-glucose meter [Contour Meter] Kit See Rx Instructions .Route Qty: 1 0RF Rx Instructions: Use as directed to check blood glucose 5 times daily. (DME) Contour Test Strips Strip See Rx Instructions .Route Qty: 200 5RF Rx Instructions: Use as directed to check blood glucose 5 times daily. ondansetron HCl 4 mg tablet 4 mg PO Q8H PRN (Reason: nausea and vomiting) Qty: 20 1RF (DME) Dexcom G7 Sensor Device See Rx Instructions .ROUTE .MEDSUPPLY Qty: 3 11RF Rx Instructions: apply new sensor every 10 days as directed terconazole 0.8 % cream 1 appful vaginal BEDTIME 3 Days Qty: 20 0RF famotidine 20 mg tablet 20 mg PO BID Qty: 60 2RF (DME) pen needle, diabetic 32 gauge x 5/32 needle See Rx Instructions .ROUTE .MEDSUPPLY Qty: 200 5RF Rx Instructions: Use to inject insulin 4 times daily. atorvastatin 20 mg tablet 20 mg PO BEDTIME Qty: 90 3RF insulin lispro [Humalog KwikPen Insulin] 100 unit/mL insulin pen See Rx Instructions subcut USEASDIRECTD Qty: 45 5RF Rx Instructions: administer 24 units subcutaneously before breakfast and 10 units before lunch and 4 units before dinner. metformin 500 mg tablet extended release 24 hr 2,000 mg PO DAILY 90 Days Qty: 360 3RF insulin glargine [Basaglar KwikPen U-100 Insulin] 100 unit/mL (3 mL) insulin pen 60 unit subcut DAILY Qty: 30 5RF Paxlovid 300 mg (150 mg x 2)-100 mg tablets,dose pack See Rx Instructions PO .COMPLEX Qty: 30 0RF Rx Instructions: take TWO 150 mg tablets of nirmatrelvir with ONE 100 mg tablet of ritonavir twice daily for 5 days PO metoprolol succinate 25 mg tablet extended release 24 hr 50 mg PO DAILY Qty: 180 0RF ipratropium bromide 42 mcg (0.06 %) spray,non-aerosol 2 spray intranasal QID 30 Days Qty: 15 3RF Rx Instructions: administer into each nostril (DME) blood pressure monitor Kit See Rx Instructions .Route Qty: 1 0RF Rx Instructions: As directed (DME) Dexcom G7 [facility] [place] [employer] [facility] See Rx Instructions .ROUTE .MEDSUPPLY Qty: 1 0RF Rx Instructions: As directed clotrimazole-betamethasone 1-0.05 % cream 1 appl topical BID 7 Days Qty: 45 1RF Eucrisa 2 % ointment 1 appl topical BID PRN (Reason: eczema) Qty: 100 3RF Referrals: Physician,Unknown J [Primary Care Provider, Medical] Interventions: ED Discharge Assessment Last Done: 07/12/25 23:30 Discharge Date/Time: 07/12/25 23:30 Print Language: [place] Citizen
[2025-07-12 22:46] LABS: MANUAL DIFF FLAG NO
[2025-07-12 22:50] LABS: Hematocrit 39.7 % (37.0-47.0); Hemoglobin 13.4 g/dl (12.0-16.0); Imm Gran Abs Auto 0.02 X10*3/uL (0.00-0.03); Imm Gran Pct Auto 0.2 % (0.0-0.4); Lymphocytes Absolute Auto 3.9 X10*3/uL (1.2-4.9); Mean Corpuscular HGB Conc 33.8 g/dl (31.0-35.0); Mean Corpuscular Hemoglobin 29.5 pg (27.0-33.0); Mean Corpuscular Volume 87.3 fL (80.0-98.0); NRBC Abs Auto 0.000 X10*3/uL (0.0-0.012); NRBC Pct Auto 0.0 /100WBC (0.0-0.2); Platelet Count 253 X10*3/uL (160-400); Red Blood Count 4.55 X10*6/uL (4.20-5.50); White Blood Count 11.5 X10*3/uL (4.8-10.8)
[2025-07-12 23:04] LABS: Alanine Aminotransferase 73 U/L (0-31); Albumin Level 4.5 g/dL (3.5-5.0); Alkaline Phosphatase 86 U/L (39-117); Anion Gap 12 (12-20); Aspartate Amino Transferase 38 U/L (5-31); Blood Urea Nitrogen 9 mg/dL (9-16); Calcium 9.5 mg/dL (8.4-10.2); Carbon Dioxide 23 mmol/L (22-29); Chloride 106 mmol/L (96-108); Creatinine Clr Calc Pharmacy 143.9; Estimated Glomerular Filt Rate > 60; Potassium 4.0 mmol/L (3.3-5.1); Sodium 137 mmol/L (135-145); Total Protein 7.1 g/dL (6.5-8.0)
[2025-07-12 23:16] LABS: Troponin-I High Sensitivity < 2.7 ng/L (<3.5-17.0)
[2025-07-12 23:30] VITALS: BP 134/80; PULSE 74; RESP 18; TEMP 36.1; O2SAT 97
== END 2025-07-12 23:30 | disposition home or self-care (01) ==
LOC: HO.ED 23:28
PROVIDERS: Nurse Practitioner Family; Emergency Provider Emergency Medicine
DX: R07.89 Other chest pain (principal); M25.512 Pain in left shoulder; E11.9 Type 2 diabetes mellitus without complications
CPT/HCPCS: 36415; 71046; 80048; 80076; 84484; 85025; 93005; 99283

== ENCOUNTER → 2025-07-12 22:24 | Outpatient (BNV) | payer OTHER, SELFPAY | PROVIDERS: Emergency Provider Emergency Medicine; Visit Provider Internal Medicine Cardiovascular Disease | DX: R07.9 Chest pain, unspecified (principal) | CPT/HCPCS: 93010 ==

== ENCOUNTER → 2025-07-12 22:35 | Outpatient (BNV) | payer OTHER, SELFPAY | PROVIDERS: Emergency Provider Emergency Medicine; Visit Provider Radiology Neuroradiology | DX: R07.9 Chest pain, unspecified (principal) | CPT/HCPCS: 71046 ==